=== PATIENT | female | born 1925 | race Caucasian/White ===

== ENCOUNTER 2017-01-26 13:52 | Inpatient (IN) | payer MEDICARE, OTHER ==
[~2017-01-26] VITALS: Ht 157.5 cm; Wt 140.0 kg
[~2017-01-26 13:52] MED LIST: ACET-2158 PO; ASPI-664 PO; ISOS60TA PO; LEVE750T70 PO; LEVO125T PO; METO-429 PO; NIT4 SL; PRAM0.5T PO; PRIM50TA38 PO; SERT25TA PO; SIMV40TA2 PO; SIN25100 PO
[2017-01-26] MEDS ORDERED: SOD CHLORIDE 0.9% 500 ML IV STA (14:36)
[2017-01-26] MEDS ORDERED: ATOR20TA38 PO (14:58)
[2017-01-26] MEDS ORDERED: BENA10TA48 PO (14:58)
[2017-01-26] MEDS ORDERED: LEVO750T8 PO (15:01)
[2017-01-26] MEDS ORDERED: IPRA3AMP INHALATION (15:01)
[2017-01-26] MEDS ORDERED: ALBU2.5V3 NEB (15:01)
[2017-01-26 15:27] LABS: ADD SCAN DIFF NO
[2017-01-26 15:39] LABS: INR 0.88; PROTIME 11.9 Sec (12.2-14.2); PT RATIO 0.9
[2017-01-26 15:41] LABS: CHLORIDE 104 mmol/L (97-110); POTASSIUM 4.5 mmol/L (3.5-5.1); SODIUM 143 mmol/L (135-144)
[2017-01-26 15:44] LABS: ANION GAP 15 (8-16); BLOOD UREA NITROGEN 13 mg/dl (7-20); CARBON DIOXIDE 29 mmol/L (21-31); CREATININE 0.72 mg/dl (0.44-1.00); GLUCOSE 91 mg/dl (70-220)
[2017-01-26 15:45] LABS: CALCIUM 8.7 mg/dl (8.4-10.2)
--- NOTE | 2017-01-26 15:51 | RADRPT ---
PROCEDURE: XR Chest. CLINICAL INDICATION: 89-year-old female with syncope. TECHNIQUE: Single frontal view of the chest was obtained COMPARISON: Chest x-ray 08/30/2016 02:17 p.m. FINDINGS: The soft tissues are normal. There are degenerative osteophytes in the thoracic spine. The the lef t ventricle is enlarged. The cardiomediastinal silhouette, pulmonary vasculature and hilar structur es are normal. There are vascular calcifications of the aortic arch. There is compressive atelectasi s in the bases of the lungs. The PICC line catheter previously identified on 08/30/2016 was removed over the interval. There is compressive atelectasis associated with a subpulmonic left pleural eff usion. IMPRESSION: 1. The left ventricular enlargement with atherosclerotic facet disease involving the aortic arch. 2. Suboptimal inspiratory effort with compressive atelectasis in the bases of the lungs have a smal l left pleural effusion. RPTAT:AAJJ Physician Sera Date Time Electronically viewed and signed by Celso Man Physician on 01/26/2017 15:51 RESHMA/
[2017-01-26 15:58] LABS: TROPONIN-I < 0.012 ng/ml (0.00-0.12)
[2017-01-26] MEDS ORDERED: LIDOCAINE 1% (MDV) 20 ML INJ SC ONE (16:00)
--- NOTE | 2017-01-26 16:47 | RADRPT ---
PROCEDURE: CT brain without contrast CLINICAL INDICATION: Syncope TECHNIQUE: CT of the brain without contrast performed on a multidetector CT scanner, with multiplan ar reformats. One or more of the following dose reduction techniques were used: Automated exposure control, adjustment in mA and / or kV according to patient size, use of iterative reconstructive yovany hnique. CTDIvol = 39/2 mGy; DLP = 555/5 mGy-cm. COMPARISON: None available FINDINGS: She there is a small to moderate chronic infarct in the right middle cerebral artery territory, invo lving the frontal and adjacent insular regions, and a smaller chronic infarct in the right posterior cerebral artery territory, involving the occipital lobe. There is ex vacuo dilation of the right a trium. There are also small chronic infarcts in the bilateral cerebellar hemispheres. No acute int racranial hemorrhage is identified. No extra-axial fluid collection is seen. There is no mass effect. No midline shift is identified. Ventricles and sulci are mild to moderately enlarged compatible with generalized volume loss. There are mild areas of hypodensity in the periventricular - deep white matter which are nonspecific but suggestive of chronic small vessel ischemic changes. Hsu-white differentiation is otherwise p reserved. Atherosclerotic calcifications of the proximal intracranial arteries are noted. Calvarium and skull base are unremarkable. There is partial left mastoid air cell opacification, se nely right sphenoid and posterior ethmoid sinus mucosal thickening, and mild right frontal sinus muc osal thickening. IMPRESSION: 1. No evidence of acute intracranial pathology. 2. 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 3. Mild to moderate volume loss, with mild chronic small vessel ischemic changes. RPTAT: VV .Ismael Briggs MD, MD Date Time Electronically viewed and signed by .Ismael Briggs MD, on 01/26/2017 16:46 .O/
[2017-01-26] MEDS ORDERED: SOD CHLORIDE 0.9% 1,000 ML IV SCH (19:05)
--- NOTE | 2017-01-26 19:10 | ERA ---
ER Documentation Chief Complaint Date/Time DATE: 01/26/17 TIME: 19:06 Chief Complaint BROUGHT IN VIA EMS FROM MD OFFICE DUE TO SYNCOPE HPI This 89-year-old female who was syncopal at her doctor's office today. The patient was just discharged from [facility] for a syncopal episode last week. She was in the hospital for 2 days no apparent findings. The patient was apparently sitting in her doctor's office prior to arrival became pale and was syncopal for about 60 seconds according to the son. The patient does recall this event and says there is no preceding symptoms. The patient woke up and was asymptomatic. She denies any dizziness. The patient however is a very poor historian. She denies any chest pain shortness of breath abdominal pain vomiting diarrhea denies any recent illness. ROS All systems reviewed and are negative except as per history of present illness. Medications Home Meds Active Scripts Levothyroxine Sodium* (Synthroid*) 125 Mcg Tablet, 125 MCG PO BEFORE BREAKFAST for 30 Days, TAB Prov:MYLES SCHAFFER MD 08/29/16 Reported Medications Levofloxacin* (Levofloxacin*) 750 Mg Tablet, 750 MG PO Q48H, TAB 01/26/17 Ipratropium-Albuterol (Ipratropium-Albuterol) 0.5-3 Mg/3 Ml Ampul.neb, 3 ML INHALATION Q6 Y for SHORTNESS OF BREATH, #30 VIAL 01/26/17 Benazepril Hcl* (Benazepril Hcl*) 10 Mg Tablet, 10 MG PO DAILY, #30 TAB 01/26/17 Atorvastatin Calcium* (Atorvastatin Calcium*) 20 Mg Tablet, 20 MG PO QHS, #30 TAB 01/26/17 Nitroglycerin* (Nitrostat*) 0.4 Mg Tab.subl, 0.4 MG SL Q5MIN Y for CHEST PAIN, BOTTLE 01/05/16 Levetiracetam* (Keppra*) 750 Mg Tablet, 750 MG PO BID, TAB 01/05/16 Carbidopa-Levodopa* (Sinemet*) 25-100 Mg Tab, 1 TAB PO TID, TAB 01/05/16 Acetaminophen (TYLENOL 325 MG TAB) 325 Mg Tab, 650 MG PO Q6 Y 08/09/13 Discontinued Reported Medications Albuterol Sulfate* (Albuterol Sulfate* Neb) 0.083%-3 Ml Neb, 2.5 MG NEB Q3H Y for WHEEZING AND SOB, #30 VIAL 01/26/17 Simvastatin* (Zocor*) 40 Mg Tablet, 40 MG PO QHS, #30 TAB 01/05/16 Primidone* (Mysoline*) 50 Mg Tablet, 50 MG PO HS, TAB 01/05/16 Pramipexole* (Pramipexole*) 0.5 Mg Tablet, 0.5 MG PO TID, TAB 01/05/16 Isosorbide Mononitrate* (Isosorbide Mononitrate*) 60 Mg Tab.er.24h, 60 MG PO DAILY, TAB 01/05/16 Aspirin (Low Dose Aspirin) 81 Mg Tablet.dr, 81 MG PO DAILY, #30 TAB 01/05/16 Metoprolol Tartrate (LOPRESSOR) 50 Mg Tab, 25 MG PO DAILY Hold for sbp less than 120 or HR less than 60. 08/09/13 Sertraline Hcl* (Zoloft*) 25 Mg Tablet, 25 MG PO HS 03/25/13 Allergies Allergies: Coded Allergies: No Known Allergies (Verified Allergy, Unknown, 01/26/17) PMhx/Soc Anesthesia Reaction: No Hx Neurological Disorder: No Hx Respiratory Disorders: No Hx Cardiac Disorders: Yes (htn and at times low blood pressure. ) Hx Psychiatric Problems: No Hx Miscellaneous Medical Probl: Yes (seizure disorder, hypothyroid. ) Hx Alcohol Use: No Hx Substance Use: No Hx Tobacco Use: No Smoking Status: Never smoker FmHx Family History: No coronary disease Physical Exam Vitals Vital Signs Date Time Temp Pulse Resp B/P Pulse Ox O2 Delivery O2 Flow Rate FiO2 01/26/17 13:56 98.0 54 16 103/46 98 Physical Exam Const: Well-developed, well-nourished Head: Atraumatic, normocephalic Eyes: Normal Conjunctiva, PERRLA, EOMI, normal sclera, no nystagmus ENT: Normal External Ears, Nose and Mouth, moist mucus membranes. Neck: Full range of motion. No meningismus, no lymphadenopathy. Resp: Clear to auscultation bilaterally, no wheezing, rhonchi, rales Cardio: Regular rate and rhythm, no murmurs, S1 S2 present Abd: Soft, non tender x 4, non distended. Normal bowel sounds, no guarding or rebound, no pulsitile abdominal masses or bruits Skin: No petechiae or rashes, no ecchymosis , no maculopapular rash Back: No midline or flank tenderness Ext: No cyanosis, or edema, FROM x 4, normal inspection, neurovascularly intact x 4 Neur: Awake and alert, STR 5/5 x 4, sensation intact x 4, no focal findings, cerebellum intact Psych: Normal Mood and Affect Result Diagram: 01/26/17 1515 Results 24 hrs Laboratory Tests Test 01/26/17 15:15 Activated Partial Thromboplast Time Pending Anion Gap 15 Blood Urea Nitrogen 13mg/dl Calcium Level 8.7mg/dl Carbon Dioxide Level 29mmol/L Chloride Level 104mmol/L Creatinine 0.72mg/dl Glucose Level 91mg/dl INR International Normalized Ratio 0.88 Potassium Level 4.5mmol/L Prothrombin Time 11.9Sec Prothrombin Time Ratio 0.9 Sodium Level 143mmol/L Troponin I < 0.012ng/ml Current Medications Medications (Trade) Dose Ordered Sig/Kristofer Route PRN Reason Start Time Stop Time Status Last Admin Dose Admin Sodium Chloride (NS) 500 ml @ 500 mls/hr Q1H STAT IV 01/26/17 14:36 01/26/17 15:35 DC Lidocaine (Xylocaine 1% (Mdv) 20 ml) 20 ml ONCE ONCE SC 01/26/17 16:00 01/26/17 16:01 DC Procedures/MDM PROCEDURE: CT brain without contrast CLINICAL INDICATION: Syncope TECHNIQUE: CT of the brain without contrast performed on a multidetector CT scanner, with multiplanar reformats. One or more of the following dose reduction techniques were used: Automated exposure control, adjustment in mA and / or kV according to patient size, use of iterative reconstructive technique. CTDIvol = 39/2 mGy; DLP = 555/5 mGy-cm. COMPARISON: None available FINDINGS: She there is a small to moderate chronic infarct in the right middle cerebral artery territory, involving the frontal and adjacent insular regions, and a smaller chronic infarct in the right posterior cerebral artery territory, involving the occipital lobe. There is ex vacuo dilation of the right atrium. There are also small chronic infarcts in the bilateral cerebellar hemispheres. No acute intracranial hemorrhage is identified. No extra-axial fluid collection is seen. There is no mass effect. No midline shift is identified. Ventricles and sulci are mild to moderately enlarged compatible with generalized volume loss. There are mild areas of hypodensity in the periventricular - deep white matter which are nonspecific but suggestive of chronic small vessel ischemic changes. Hsu-white differentiation is otherwise preserved. Atherosclerotic calcifications of the proximal intracranial arteries are noted. Calvarium and skull base are unremarkable. There is partial left mastoid air cell opacification, severe right sphenoid and posterior ethmoid sinus mucosal thickening, and mild right frontal sinus mucosal thickening. IMPRESSION: 1. No evidence of acute intracranial pathology. 2. 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 3. Mild to moderate volume loss, with mild chronic small vessel ischemic changes. RPTAT: VV .Ismael Briggs MD, Date Time Electronically viewed and signed by .Ismael Briggs MD, on 01/26/2017 16:46 .O/ CC: CHASIDY MARIA DO PROCEDURE: XR Chest. CLINICAL INDICATION: 89-year-old female with syncope. TECHNIQUE: Single frontal view of the chest was obtained COMPARISON: Chest x-ray 08/30/2016 02:17 p.m. FINDINGS: The soft tissues are normal. There are degenerative osteophytes in the thoracic spine. The the left ventricle is enlarged. The cardiomediastinal silhouette, pulmonary vasculature and hilar structures are normal. There are vascular calcifications of the aortic arch. There is compressive atelectasis in the bases of the lungs. The PICC line catheter previously identified on 2015 was removed over the interval. There is compressive atelectasis associated with a subpulmonic left pleural effusion. IMPRESSION: 1. The left ventricular enlargement with atherosclerotic facet disease involving the aortic arch. 2. Suboptimal inspiratory effort with compressive atelectasis in the bases of the lungs have a small left pleural effusion. RPTAT:AAJJ Celso Man Physician Date Time Electronically viewed and signed by Celso Man Physician on 01/26/2017 15:51 JM/ CC: CHASIDY MARIA DO ED monitor demonstrates normal sinus rhythm heart rate between 58 and 62 Patient's syncopal symptoms are unstable at this time and require inpatient workup. No evidence of PE or dissection at this time but occult ischemia or fatal dysrhythmia cannot be ruled out. Departure Diagnosis: Primary Impression: Syncope Qualified Code: R55 - Syncope, unspecified syncope type Condition: Stable CHASIDY MARIA DO Jan 26, 2017 19:10
[2017-01-26 19:22] VITALS: TEMP 98.3
[2017-01-26] MEDS ORDERED: ACETAMINOPHEN 325 MG TAB PO PRN ×3 (19:30→23:00)
[2017-01-26] MEDS ORDERED: ONDANSETRON 4 MG INJ IV PRN ×2 (19:30→23:00)
[2017-01-26 20:28] LABS: BASOPHIL # 0.1 10^3/ul (0.0-0.1); BASOPHILS % 0.7 % (0.0-2.0); EOSINOPHILS # 0.4 10^3/ul (0.0-0.5); EOSINOPHILS % 4.4 % (0.0-7.0); HEMATOCRIT 35.3 % (37.0-47.0); HEMOGLOBIN 11.3 g/dl (12.0-16.0); LYMPHOCYTES # 2.7 10^3/ul (0.8-2.9); MEAN CORPUSCULAR HEMOGLOBIN 30.5 pg (29.0-33.0); MEAN CORPUSCULAR VOLUME 95.1 fl (82.0-101.0); MEAN PLATELET VOLUME 9.9 fl (7.4-10.4); MONOCYTE # 0.7 10^3/ul (0.3-0.9); MONOCYTES % 8.1 % (0.0-11.0); NEUTROPHIL # 4.6 10^3/ul (1.6-7.5); NEUTROPHILS % 54.3 % (39.0-77.0); PLATELET COUNT 356 10^3/UL (140-415); RED BLOOD COUNT 3.71 10^6/ul (4.20-5.40); RED CELL DISTRIBUTION WIDTH 15.3 % (11.5-14.5); WHITE BLOOD COUNT 8.5 10^3/ul (4.8-10.8)
[2017-01-26 20:57] VITALS: PULSE 75
[2017-01-26 20:57] LABS: PARTIAL THROMBOPLASTIN TIME 25.5 Sec (25.0-35.0)
[2017-01-26 21:27] VITALS: Ht 157.5 cm; Wt 140.0 kg
[2017-01-26 21:34] VITALS: BP 118/90; PULSE 75; RESP 20
[2017-01-26] MEDS ORDERED: NITROGLYCERIN (SL) 0.4 MG TAB SL PRN (23:00)
[2017-01-26] MEDS ORDERED: ALBUTEROL/IPRATROPIUM (NEB) 3 ML AMP HHN PRN (23:00)
[2017-01-26] MEDS ORDERED: NACL 0.9% 3 ML SYG IV SCH (23:00)
[2017-01-26] MEDS ORDERED: DOCUSATE SODIUM 100 MG CAP PO PRN (23:00)
[2017-01-26] MEDS ORDERED: BISACODYL (EC) 5 MG TAB PO PRN (23:00)
[2017-01-26] MEDS ORDERED: MAGNESIUM HYDROXIDE 30ML CUP PO PRN (23:00)
[2017-01-26] MEDS ORDERED: ACETAMINOPHEN 650 MG SUPP PR PRN (23:00)
[2017-01-26] MEDS: SOD CHLORIDE 0.45% 1,000 ML IV SCH (23:02)
[2017-01-26] MEDS: LEVOFLOXACIN 750 MG TABLET PO SCH (23:02)
--- NOTE | 2017-01-26 23:26 | QN ---
Documentation Comment a/p syncope copd parkinson disease s/p uti plan per order MYLES SCHAFFER MD Jan 26, 2017 23:26
[2017-01-27] VITALS (14 sets, daily range): BP systolic 98–130; BP diastolic 49–67; PULSE 60–113; RESP 16–18
[2017-01-27] MEDS: PANTOPRAZOLE 40 MG INJ IV SCH (05:54)
[2017-01-27 06:40] LABS: ADD SCAN DIFF NO
[2017-01-27 06:47] LABS: BASOPHILS % 0.4 % (0.0-2.0); EOSINOPHILS # 0.4 10^3/ul (0.0-0.5); HEMATOCRIT 34.2 % (37.0-47.0); HEMOGLOBIN 10.6 g/dl (12.0-16.0); LYMPHOCYTES # 2.2 10^3/ul (0.8-2.9); LYMPHOCYTES % 31.9 % (15.0-51.0); MEAN CORPUSCULAR VOLUME 96.9 fl (82.0-101.0); MEAN PLATELET VOLUME 9.9 fl (7.4-10.4); MONOCYTE # 0.8 10^3/ul (0.3-0.9); MONOCYTES % 11.3 % (0.0-11.0); NEUTROPHIL # 3.5 10^3/ul (1.6-7.5); NEUTROPHILS % 50.1 % (39.0-77.0); PLATELET COUNT 302 10^3/UL (140-415); RED BLOOD COUNT 3.53 10^6/ul (4.20-5.40); RED CELL DISTRIBUTION WIDTH 15.4 % (11.5-14.5)
[2017-01-27] MEDS: LEVOTHYROXINE 125 MCG TAB PO SCH (07:05)
[2017-01-27 07:08] LABS: ALBUMIN 2.8 g/dl (3.3-4.9)
[2017-01-27 07:09] LABS: POTASSIUM 3.8 mmol/L (3.5-5.1)
[2017-01-27 07:11] LABS: ALBUMIN/GLOBULIN RATIO 0.9; CREATININE 0.67 mg/dl (0.44-1.00); TOTAL PROTEIN 5.9 g/dl (6.1-8.1)
[2017-01-27 07:12] LABS: CALCIUM 8.1 mg/dl (8.4-10.2)
[2017-01-27] MEDS: CARBIDOPA/LEVODOPA (25/100) TAB PO SCH ×3 (09:53→21:07)
[2017-01-27] MEDS: LEVETIRACETAM 750 MG TAB PO SCH ×2 (09:53→21:07)
[2017-01-27] MEDS: BENAZEPRIL 10 MG TAB PO SCH (09:53)
--- NOTE | 2017-01-27 16:22 | QN ---
Documentation Comment [id number] MYLES SCHAFFER MD Jan 27, 2017 16:22
--- NOTE | 2017-01-27 16:25 | PN ---
Date/Time of Note Date/Time of Note DATE: 01/27/17 TIME: 16:23 Assessment/Plan VTE Prophylaxis VTE Prophylaxis Intervention: other Lines/Catheters IV [facility] Peripheral IV Urinary Cath still in place: No Assessment/Plan Chief Complaint/Hosp Course a/p syncope uti hx cad parkinson diseease plan per neurology Problems: Subjective 24 Hr Interval Summary Cardiovascular: no complaints Gastrointestinal: no complaints Genitourinary: no complaints Exam/Review of Systems Vital Signs Vitals Vital Signs Date Time Temp Pulse Resp B/P Pulse Ox O2 Delivery O2 Flow Rate FiO2 01/27/17 16:03 98.7 60 18 100/65 92 01/26/17 21:34 Room Air Intake and Output 01/26/17 01/26/17 01/27/17 15:00 23:00 07:00 Intake Total 510 ml Balance 510 ml Exam Respiratory: diminished breath sounds Cardiovascular: regular rate and rhythm Gastrointestinal: nl liver, spleen, soft Musculoskeletal: nl extremities to inspection Extremities: normal pulses Results Result Diagram: 01/27/1715 01/27/17 0615 Results 24 hrs Laboratory Tests Test 01/26/17 20:18 01/27/17 06:15 Activated Partial Thromboplast Time 25.5 Basophils # 0.1 0.0 Basophils % 0.7 0.4 Eosinophils # 0.4 0.4 Eosinophils % 4.4 5.0 Hematocrit 35.3 #L 34.2 L Hemoglobin 11.3 #L 10.6 L INR International Normalized Ratio 0.88 Lymphocytes # 2.7 2.2 Lymphocytes % 31.0 31.9 Mean Corpuscular Hemoglobin 30.5 30.0 Mean Corpuscular Hemoglobin Concent 32.0 31.0 L Mean Corpuscular Volume 95.1 96.9 Mean Platelet Volume 9.9 9.9 Monocytes # 0.7 0.8 Monocytes % 8.1 11.3 H Neutrophils # 4.6 3.5 Neutrophils % 54.3 50.1 Nucleated Red Blood Cells # 0.0 0.0 Nucleated Red Blood Cells % 0.0 0.0 Platelet Count 356 302 Prothrombin Time 11.9 L Prothrombin Time Ratio 0.9 Red Blood Count 3.71 #L 3.53 L Red Cell Distribution Width 15.3 H 15.4 H White Blood Count 8.5 # 7.0 Alanine Aminotransferase (ALT/SGPT) 23 Albumin 2.8 L Albumin/Globulin Ratio 0.90 Alkaline Phosphatase 104 Anion Gap 13 Aspartate Amino Transf (AST/SGOT) 11 L Blood Urea Nitrogen 11 Calcium Level 8.1 L Carbon Dioxide Level 25 Chloride Level 104 Creatinine 0.67 Direct Bilirubin 0.00 Globulin 3.10 Glucose Level 78 Indirect Bilirubin 0.0 Potassium Level 3.8 Sodium Level 138 Total Bilirubin 0.0 L Total Protein 5.9 L Medications Medications Current Medications Atorvastatin Calcium (Lipitor) 20 mg QHS PO ; Start 01/27/17 at 21:00 Benazepril HCl (Lotensin) 10 mg DAILY PO Last administered on 01/27/17 09:53; Admin Dose 10 MG; Start 01/27/17 at 09:00 Carbidopa/Levodopa (Sinemet (/ )) 1 tab TID PO Last administered on 13:42; Admin Dose 1 TAB; Start 01/27/17 at 09:00 Levetiracetam (Keppra) 750 mg BID PO Last administered on 01/27/17 09:53; Admin Dose 750 MG; Start 01/27/17 at 09:00 Levofloxacin (Levaquin) 750 mg Q48H PO Last administered on 01/26/17 23:02; Admin Dose 750 MG; Start 01/26/17 at 23:00 Nitroglycerin 0.4 tab 0.4 tab [id number] PRN SL CHEST PAIN; Start 01/26/17 at 23: 00 Sodium Chloride (1/2 NS) 1,000 ml @ 40 mls/hr Q24H IV Last administered on 01/26 23:02; Admin Dose 40 MLS/HR; Start 01/26/17 at 22:32 Ondansetron HCl (Zofran Inj) 4 mg Q6H PRN IV NAUSEA AND/OR VOMITING; Start 01/26 at 23:00 Acetaminophen (Tylenol Tab) 650 mg Q6H PRN PO PAIN LEVEL 1-3 OR FEVER; Start at 23:00 Acetaminophen (Tylenol Supp) 650 mg Q6H PRN MI PAIN LEVEL 1-3 OR FEVER; Start 01/26/17 at 23:00 Docusate Sodium (Colace) 100 mg Q12H PRN PO CONSTIPATION; Start 01/26/17 at 23: 00 Magnesium Hydroxide (Milk Of Mag) 30 ml DAILY PRN PO CONSTIPATION; Start at 23:00 Bisacodyl (Dulcolax) 5 mg DAILY PRN PO CONSTIPATION; Start 01/26/17 at 23:00 Pantoprazole (Protonix Iv) 40 mg DAILY@06 IV Last administered on 01/27/17t 05: 54; Admin Dose 40 MG; Start 01/27/17 at 06:00 MYLES SCHAFFER MD Jan 27, 2017 16:25
--- NOTE | 2017-01-27 16:51 | HP ---
DATE OF ADMISSION: 01/26/2017 HISTORY OF PRESENT ILLNESS: The patient is an 89-year-old female with history of CAD, COPD, Parkinson's disease, recently discharged from [facility] with diagnosis of UTI. The patient was in my office, . When I saw her, the patient had dizziness and trying to pass out, but she never passed out. 911 was called and they brought her to this hospital where blood pressure was 106/ 51. She was afebrile. The patient had laboratory data done shows hematocrit 34.2, sodium 130, potassium 3.8. The patient is being admitted for further management. PAST MEDICAL HISTORY: Positive for seizures, UTI, hypothyroidism. The patient has arthritis, DJD, history of respiratory failure, history of COPD, history of multiple falls in the past. ALLERGY HISTORY: NEGATIVE. FAMILY HISTORY: Noncontributory. SOCIAL HISTORY: Negative. MEDICATIONS: At home, the patient is on: 1. Tylenol. 2. Atrovent. 3. Lipitor. 4. Benazepril. 5. Carbidopa/levodopa. 6. Keppra. 7. Levofloxacin. . REVIEW OF SYSTEMS HEENT: Unremarkable for headache, diplopia, blurred vision, but earlier patient did. RESPIRATORY: Unremarkable. CARDIOVASCULAR: No chest pain or palpitation. ABDOMEN: Unremarkable. EXTREMITIES: No swelling. PHYSICAL EXAMINATION: VITAL SIGNS: Pulse 61, blood pressure 90/67. HEAD: Atraumatic, normocephalic. Pupils equal and reactive to light. NECK: Supple. No JVD. LUNGS: Clear. CARDIOVASCULAR: S1, S2 normal. ABDOMEN: Soft, nontender. Bowel sounds present. No palpable mass. EXTREMITIES: No cyanosis, clubbing, or edema. CENTRAL NERVOUS SYSTEM: The patient is awake, alert, and no focal deficit. LABORATORY DATA: As mentioned above. IMPRESSION: 1. Syncopal episode. 2. Status post urinary tract infection. 3. Hypertension. 4. Hypothyroidism. 5. Dyslipidemia. 6. Electrolyte imbalance. PLAN: To obtain cardiology and neurology consultations. Continue home medications. The patient is going to be monitored very closely. Orders were done. Dictated By: MYLES SCHAFFER MD BS/NTS Conf#: [id number] DID#: [id number] [facility]
[2017-01-27] MEDS: ATORVASTATIN 20 MG TAB PO SCH (21:07)
--- NOTE | 2017-01-27 21:17 | SP ---
DATE OF PROCEDURE: REFERRING PHYSICIAN: Boni Schaffer MD Thank you for asking me to see the patient with you. HISTORY OF PRESENT ILLNESS: The patient is an 89-year-old lady, admitted to [facility] with syncopal attacks, for which I got a call about her for more evaluation and treatment. Th e patient is known to my clinic for a history of seizure disorder, as well as parkinsonism. The pat ient is accompanied by her son in the room tonight. CURRENT MEDICATIONS Include: 1. Keppra. 2. Sinemet. 3. Lipitor. The rest as the reconciliation sheet. PAST MEDICAL HISTORY: As above, which includes dyslipidemia, parkinsonism, seizure disorder. PHYSICAL EXAMINATION GENERAL: On exam today, the patient is alert, awake, oriented, following simple commands. accompan ied by her son in the room. HEART: Regular rate and rhythm. LUNGS: Equal breath sounds. ABDOMEN: Soft, relaxed, nondistended. No tenderness. NEUROLOGIC EXAMINATION CRANIAL NERVES: Cranial nerve II: Pupils equal on both sides, reactive to light. Cranial nerves III, IV, and : Extraocular muscles intact. Cranial nerve V: Equal sensation to face. Cranial nerve VII: Symmetrical face. Cranial nerve VIII: Decreased hearing bilaterally. Cranial nerves IX, X: Elevates palate. Cranial nerve XI: Elevates shoulder 5/5. Cranial nerve XII: With straight tongue. MOTOR: Decreased right hand felt hanger, 4+/5. SENSATION: Decreased for glove and sock area for light touch and temperature. COORDINATION: [id number] test intact, with some tremor. ASSESSMENT AND PLAN The patient is an 89-year-old lady with a past medical history of seizure disorder, with ____ under lying seizure activity. Follow up the patient with electroencephalogram. Continue the patient on K eppra 500 mg twice a day and follow up the patient with seizure precaution and aspiration precaution . 2. History of parkinsonism. Keep the patient on Sinemet 100 mg/25 mg 3 times a day. We will follo w up the patient in the clinic for more evaluation and treatment. 4. History of dyslipidemia. Keep the patient on Lipitor 20 mg once a day. 5. History of insomnia. Keep the patient on Ambien 5 mg once at night as needed. 6. History of hypertension. Keep the patient on metoprolol 25 mg once a day. 7. The patient with memory disorder in which the patient was on donepezil 10 mg once a day. 8. History of essential tremor. Give the patient Primidone 50 mg once at night. Again, thank you for asking me to see the patient with you. Dictated By: FEDERICO HASSAN MD NA/NTS Conf#: [id number] DID#: [id number] CC: BONI SCHAFFER MD;*End*
[2017-01-27] MEDS: SOD CHLORIDE 0.45% 1,000 ML IV SCH (22:32)
--- NOTE | 2017-01-27 23:17 | CONS ---
DATE OF ADMISSION: 01/26/2017 DATE OF CONSULTATION: 01/27/2017 TYPE OF CONSULTATION: Cardiology. REASON FOR CONSULTATION: Syncope, presyncope, assess for cardiac etiology, rule out cardiac arrhyth gabino. REQUESTING PHYSICIAN: Dr. Boni Schaffer HISTORY OF PRESENT ILLNESS: Ms. Heredia is a very pleasant 89-year-old female with history of preston ry artery disease, chronic obstructive pulmonary disease, Parkinson disease who had a recent admit [facility] with a diagnosis of UTI. The patient was discharged to outpatient followup and sh owed up at her primary care physician's office with complaints of dizziness and episodes of presynco pe. The physician had 911 called. The patient was brought here to emergency department at [facility]. Upon arrival in the emergency department, temperature 98, blood pressure 103/ 46, pulse 54, respiratory rate 16, saturating 98%. The patient's labs revealed a white cell count o f 8.5, hemoglobin 11.3, platelet count 356. Sodium 143, potassium 4.5, creatinine 0.7, BUN 13. Tro ponin negative. INR 0.88. White blood cell count 8.5, hemoglobin 11.3, platelet count of 356. The patient underwent a chest x-ray revealing left ventricular enlargement, atherosclerotic vascular di sease involving ____, suboptimally inspiratory effort with compressive atelectasis at base of the darren ngs and small left pleural effusion. 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 The patient's electrocardiogram revealed n ormal sinus rhythm at a rate of 61, normal axis, borderline anterior R-wave progression with diffuse nonspecific ST and T-wave abnormalities. The patient has subsequently been admitted to the floor a nd since admit to floor has been monitored on telemetry, revealing sinus rhythm, no significant arrh ythmias or pauses at this time. The patient denies chest pain, shortness of breath, dizziness. PAST MEDICAL HISTORY: As above in HPI. MEDICATIONS CURRENTLY IN HOSPITAL: 1. Lipitor 20 mg at bedtime. 2. Benazepril 10 mg daily. 3. Sinemet p.o. t.i.d. 4. Keppra 750 mg b.i.d. 5. Synthroid 125 mg daily. 6. Protonix 40 mg IV daily. 7. DuoNeb. 8. ____. 9. Sublingual nitroglycerin p.r.n. 10. Zofran p.r.n. 11. Tylenol p.r.n. 12. Colace p.r.n. 13. Milk of magnesia p.r.n. 14. IV fluid hydration 40 mL an hour. ALLERGIES: NO KNOWN DRUG ALLERGIES. SOCIAL HISTORY: No tobacco, ETOH, illicit drug use. FAMILY HISTORY: No history of sudden cardiac or early CAD. REVIEW OF SYSTEMS: As above in HPI. CONSTITUTIONAL: No fevers, chills. PULMONARY: No current shortness of breath. CARDIOVASCULAR: Syncope, presyncope. No chest pain. GASTROINTESTINAL: No vomiting. GENITOURINARY: No hematuria. MUSCULOSKELETAL: Degenerative joint disease. PSYCHIATRIC: No documented history of depression. NEUROLOGIC: Parkinson's and possible seizure disorder by medications. PHYSICAL EXAMINATION: VITAL SIGNS: Temperature of 98.7, blood pressure low at 165, pulse 60, respiratory rate 18, saturat ing 92%. GENERAL: The patient is alert, awake. No acute distress. NECK: JVP approximately 8 to 9 cm water. CHEST: Fair air movement throughout. HEART: Regular rate and rhythm. Normal S1, S2. I/ systolic murmur. Nondisplaced PMI. ABDOMEN: Positive bowel sounds, soft. NEUROLOGICAL: No edema. Pulses 1+ bilaterally at posterior tibial. LABORATORY DATA: As above in HPI with most recent from today: White cell count of 7.0, hemoglobin 10.6, platelet count 302. Sodium 138, potassium 3.8, creatinine 0.67, BUN 11. INR 0.88. IMAGING STUDIES: As above in HPI. No further imaging studies for my review at this time. ELECTROCARDIOGRAM: As above in HPI. No further electrocardiograms for my review at this time. IMPRESSION: 1. Syncope, presyncope, rule out cardiac etiology. 2. Abnormal electrocardiogram, assess for acute coronary syndrome. 3. History of congestive heart failure. 4. Dizziness. 5. Hypertension, borderline with episodes of low blood pressure and hypotension. 6. Hypothyroidism. 7. Parkinson's. 8. Dyslipidemia. 9. Possible seizure disorder by medications. 10. Anemia. RECOMMENDATIONS: 1. At this time would maintain the patient on telemetry monitoring to follow rhythm and rate closel y and rule out any possible rhythm causes to the patient's syncopal episode. 2. Would check a 2D echocardiogram to further assess this patient's ejection fraction, wall motion, rule out any major valve abnormalities that may have been associated with presyncopal episode. 3. Complete a rule-out for myocardial infarction, ensure the patient's EKG abnormalities are chroni c in nature and not due to any recent acute coronary syndromes and not associated with any possible syncopal episodes. 3. Would hold the patient's benazepril at this time and follow some marginal blood pressures. 4. Check orthostatics to be sure that orthostasis did not contribute to the patient's presyncopal o r syncopal episode. Continue the statin and adjust it according to a fasting lipid panel to be chec ked. 5. Continue the patient's current Sinemet and patient's Keppra and watch for any seizure activity w ith a neuro consultation ongoing. Thank you for allowing me to take part in the care of this patient. I will continue to follow very closely with you with further recommendations to be made as the patient progresses through her [facility] course. Dictated By: KELLY MTZ/GABRIELLA Conf#: [id number] DID#: [id number] CC: BONI SCHAFFER MD;*EndCC*
[2017-01-28] VITALS (11 sets, daily range): BP systolic 94–134; BP diastolic 51–58; PULSE 71–80; RESP 17–19
[2017-01-28 01:55] LABS: CK-MB 0.36 ng/ml (0.0-2.4)
[2017-01-28 01:58] LABS: TROPONIN-I 0.013 ng/ml (0.00-0.12)
[2017-01-28] MEDS: PANTOPRAZOLE 40 MG INJ IV SCH (06:04)
[2017-01-28] MEDS: LEVOTHYROXINE 125 MCG TAB PO SCH (06:04)
[2017-01-28 07:52] LABS: CHOL/HDL RATIO 2.6 RATIO
[2017-01-28 08:10] LABS: CK-MB 0.37 ng/ml (0.0-2.4)
[2017-01-28 08:11] LABS: CREATINE KINASE < 20 IU/L (23-200)
[2017-01-28 08:14] LABS: TROPONIN-I 0.025 ng/ml (0.00-0.12)
[2017-01-28] MEDS: BENAZEPRIL 10 MG TAB PO SCH (09:00)
[2017-01-28] MEDS: LEVETIRACETAM 750 MG TAB PO SCH ×2 (09:40→21:36)
[2017-01-28] MEDS: CARBIDOPA/LEVODOPA (25/100) TAB PO SCH ×3 (09:40→21:36)
--- NOTE | 2017-01-28 12:14 | RADRPT ---
Echocardiogram Report Patient Name: DAVID BLACK Gender: Female Date: 1925 Study Date: 28-Jan-2017 Client Manager Large Law: Kilo Gross [facility] Location: 1865 Ref. Physician: KELLY MCCABE Quality: Adequate Procedures: Transthoracic echocardiogram with complete 2D, M-Mode, and doppler examination. Indications: Syncope. 2D/M Mode Doppler Measurement Value Normal Ranges Measurement Value Normal Ranges LVIDd 2D 5.3 3.5 - 5.6 cm AV Peak Froilan 1.4 m/sec LVIDs 2D 1.9 2.1 - 4.1 cm AV Peak PG 8.0 mmHg FS 2D 64.2 % LVOT Peak Froilan 1.0 m/sec LVPWd 2D 1.2 0.6 - 1.1 cm LVOT Peak PG 4.0 mmHg IVSd 2D 1.1 0.6 - 1.1 cm MV E Peak Froilan 0.8 m/sec IVS/LVPW 2D 0.9 MV A Peak Froilan 1.3 m/sec AoR Diam 2D 2.6 2.0 - 3.7 cm MV E/A 0.6 LA/Ao 2D 1 0 - 1 MV Decel Time 215 msec EDV 2D 147.0 cm3 MV E/A 0.6 ESV 2D 6.8 cm3 TR Peak Froilan 2.9 m/sec LA Dimen 2D 3.4 2.3 - 4.0 cm TR Peak PG 33.0 mmHg RVSP 48.0 mmHg Findings Left Ventricle: Normal left ventricular systolic function. Normal left ventricular cavity size. Mild concentric left ventricular hypertrophy. Ejection fraction is visually estimated at 55 %. Tissue Doppler/Mitral Doppler indices are consistent with impaired relaxation (Stage I diastolic dysfunction). Right Ventricle: Normal right ventricular size. Normal right ventricular systolic function. Left Atrium: The left atrium is normal in size. Right Atrium: The right atrium is normal in size. Mitral Valve: Moderate mitral leaflet calcification. Mild mitral annular calcification. Mild mitral valve regurgitation. Aortic Valve: No hemodynamically significant aortic stenosis by doppler. Aortic cusps appear mildly calcified. Trace to mild aortic valve regurgitation. Tricuspid Valve: Normal appearance of the tricuspid valve. Estimated peak PA systolic pressure 48 mmHg. There is mild tricuspid regurgitation. Pulmonic Valve: Pulmonic valve not well visualized. Pericardium: Normal pericardium with no significant pericardial effusion. Aorta: Normal aortic root. IVC: Dilated IVC without respiratory collapse consistent with elevated right atrial pressure. Conclusions 1.Normal left ventricular systolic function. Normal left ventricular cavity size. Mild concentric left ventricular hypertrophy. Ejection fraction is visually estimated at 55 %. Tissue Doppler/Mitral Doppler indices are consistent with impaired relaxation (Stage I diastolic dysfunction). 2.Moderate mitral leaflet calcification. Mild mitral annular calcification. Mild mitral valve regurgitation. 3.No hemodynamically significant aortic stenosis by doppler. Aortic cusps appear mildly calcified. Trace to mild aortic valve regurgitation. 4.Normal appearance of the tricuspid valve. Estimated peak PA systolic pressure 48 mmHg. There is mild tricuspid regurgitation. Electronically Signed By: Kelly Mccabe 28-Jan-2017 12:14:25 -0800 Patient Name: DAVID BLACK Study Date: 28-Jan-2017 [id number]
[2017-01-28 13:23] LABS: CREATINE KINASE < 20 IU/L (23-200)
[2017-01-28 13:29] LABS: CK-MB 0.32 ng/ml (0.0-2.4)
[2017-01-28 13:36] LABS: TROPONIN-I < 0.012 ng/ml (0.00-0.12)
--- NOTE | 2017-01-28 13:44 | RADRPT ---
Vent Rate: 67 bpm RR Interval: 0 msec DC Interval: 140 msec QRS Duration: 78 msec QT Interval: 398 msec QTC Interval: 420 msec P-R-T [place]: 61 - 8 - 70 degrees Normal sinus rhythm Normal ECG Electronically Signed By: Alan Perdomo [id number]
--- NOTE | 2017-01-28 14:05 | CONS ---
Date/Time of Note Date/Time of Note DATE: 01/28/17 TIME: 14:00 Assessment/Plan Assessment/Plan Chief Complaint/Hosp Course IMPRESSION: 1. Syncope, presyncope, rule out cardiac etiology.-negstive troponin x 3/Echo EF 55/DD/MR/TR 2. Abnormal electrocardiogram, assess for acute coronary syndrome. 3. History of congestive heart failure. 4. Dizziness. 5. Hypertension, borderline with episodes of low blood pressure and hypotension. 6. Hypothyroidism. 7. Parkinson's. 8. Dyslipidemia. 9. Possible seizure disorder by medications. 10. Anemia. Recc: -Tele -serial ecg -? orthostatics not done -If does not receive benezapril will d/c given marginal BP -Contineu sinemet and follow volume status closely Problems: Consultation Date/Type/Reason Admit Date/Time Jan 26, 2017 at 19:05 Initial Consult Date 01/27/17 Type of Consultation: Cardiology Reason for Consultation syncope Referring Provider: MYLES SCHAFFER Exam/Review of Systems Vital Signs Vitals Vital Signs Date Time Temp Pulse Resp B/P Pulse Ox O2 Delivery O2 Flow Rate FiO2 01/28/17 12:37 80 01/28/17 11:35 97.5 17 119/51 92 01/26/17 21:34 Room Air Intake and Output 01/27/17 01/27/17 01/28/17 15:00 23:00 07:00 Intake Total 870 ml 280 ml Balance 870 ml 280 ml Exam Review of Systems: CONSTITUTIONAL: No fevers, chills. PULMONARY: No sob CARDIOVASCULAR: No chest pain/palpitations GASTROINTESTINAL: No nausea/vomiting. GENITOURINARY: No hematuria/dysuria. MUSCULOSKELETAL: No myagias/arthalgias. PSYCHIATRIC: The patient denies depression. NEUROLOGIC: lethargic Constitutional: alert, oriented Psych: no complaints Head: normocephalic ENMT: mucosa pink and moist Neck: jvd, supple Respiratory: diminished breath sounds Cardiovascular: regular rate and rhythm Gastrointestinal: non-tender, soft Musculoskeletal: muscle tone Extremities: normal pulses Neurological: other (No focal deficits) Results Result Diagram: 01/27/17 0615 01/27/17 0615 Results 24 hrs Laboratory Tests Test 01/28/17 00:48 01/28/17 07:00 01/28/17 07:05 01/28/17 12:30 Creatine Kinase 20 L < 20 L < 20 L Creatine Kinase Index 1.8 Creatinine Kinase MB (Mass) 0.36 0.37 0.32 Troponin I 0.013 0.025 < 0.012 Cholesterol Level 86 L Cholesterol/HDL Ratio 2.6 HDL Cholesterol 33 LDL Cholesterol, Calculated 30 Triglycerides Level 116 Medications Medications Current Medications Atorvastatin Calcium (Lipitor) 20 mg QHS PO Last administered on 01/27/17 21:07 ; Admin Dose 20 MG; Start 01/27/17 at 21:00 Benazepril HCl (Lotensin) 10 mg DAILY PO Last administered on 01/27/17 09:53; Admin Dose 10 MG; Start 01/27/17 at 09:00 Carbidopa/Levodopa (Sinemet (/ )) 1 tab TID PO Last administered on 12:48; Admin Dose 1 TAB; Start 01/27/17 at 09:00 Levetiracetam (Keppra) 750 mg BID PO Last administered on 01/28/17 09:40; Admin Dose 750 MG; Start 01/27/17 at 09:00 Levofloxacin (Levaquin) 750 mg Q48H PO Last administered on 01/26/17 23:02; Admin Dose 750 MG; Start 01/26/17 at 23:00 Nitroglycerin 0.4 tab 0.4 tab [id number] PRN SL CHEST PAIN; Start 01/26/17 at 23: 00 Sodium Chloride (1/2 NS) 1,000 ml @ 40 mls/hr Q24H IV Last administered on 01/27 22:32; Admin Dose 40 MLS/HR; Start 01/26/17 at 22:32 Ondansetron HCl (Zofran Inj) 4 mg Q6H PRN IV NAUSEA AND/OR VOMITING; Start 01/26 at 23:00 Acetaminophen (Tylenol Tab) 650 mg Q6H PRN [place] PAIN LEVEL 1-3 OR FEVER; Start at 23:00 Acetaminophen (Tylenol Supp) 650 mg Q6H PRN [place] PAIN LEVEL 1-3 OR FEVER; Start 01/26/17 at 23:00 Docusate Sodium (Colace) 100 mg Q12H PRN PO CONSTIPATION; Start 01/26/17 at 23: 00 Magnesium Hydroxide (Milk Of Mag) 30 ml DAILY PRN PO CONSTIPATION; Start at 23:00 Bisacodyl (Dulcolax) 5 mg DAILY PRN PO CONSTIPATION; Start 01/26/17 at 23:00 Pantoprazole (Protonix Iv) 40 mg DAILY@06 IV Last administered on 01/28/17t 06: 04; Admin Dose 40 MG; Start 01/27/17 at 06:00 KELLY DOSS Jan 28, 2017 14:05
--- NOTE | 2017-01-28 17:45 | PN ---
Date/Time of Note Date/Time of Note DATE: 01/28/17 TIME: 17:43 Assessment/Plan VTE Prophylaxis VTE Prophylaxis Intervention: other Lines/Catheters IV [facility]ter Type (from [facility]): Peripheral IV Urinary Cath still in place: No Assessment/Plan Chief Complaint/Hosp Course IMPRESSION: 1. Syncopal episode. 2. Status post urinary tract infection. 3. Hypertension. 4. Hypothyroidism. 5. Dyslipidemia. 6. Electrolyte imbalance. PLAN PER NEURO AND CARDIO Problems: Subjective 24 Hr Interval Summary Respiratory: no complaints Cardiovascular: no complaints Gastrointestinal: no complaints Exam/Review of Systems Vital Signs Vitals Vital Signs Date Time Temp Pulse Resp B/P Pulse Ox O2 Delivery O2 Flow Rate FiO2 01/28/17 16:15 80 01/28/17 16:07 97.5 17 103/53 93 01/26/17 21:34 Room Air Intake and Output 01/27/17 01/27/17 01/28/17 15:00 23:00 07:00 Intake Total 870 ml 280 ml Balance 870 ml 280 ml Exam Respiratory: clear to auscultation Cardiovascular: regular rate and rhythm Gastrointestinal: soft Musculoskeletal: nl extremities to inspection Results Result Diagram: 01/27/17 0615 01/27/17 0615 Results 24 hrs Laboratory Tests Test 01/28/17 00:48 01/28/17 07:00 01/28/17 07:05 01/28/17 12:30 Creatine Kinase 20 L < 20 L < 20 L Creatine Kinase Index 1.8 Creatinine Kinase MB (Mass) 0.36 0.37 0.32 Troponin I 0.013 0.025 < 0.012 Cholesterol Level 86 L Cholesterol/HDL Ratio 2.6 HDL Cholesterol 33 LDL Cholesterol, Calculated 30 Triglycerides Level 116 Medications Medications Current Medications Atorvastatin Calcium (Lipitor) 20 mg QHS PO Last administered on 01/27/17 21:07 ; Admin Dose 20 MG; Start 01/27/17 at 21:00 Benazepril HCl (Lotensin) 10 mg DAILY PO Last administered on 01/27/17 09:53; Admin Dose 10 MG; Start 01/27/17 at 09:00 Carbidopa/Levodopa (Sinemet (25/ 100)) 1 tab TID PO Last administered on 12:48; Admin Dose 1 TAB; Start 01/27/17 at 09:00 Levetiracetam (Keppra) 750 mg BID PO Last administered on 01/28/17 09:40; Admin Dose 750 MG; Start 01/27/17 at 09:00 Levofloxacin (Levaquin) 750 mg Q48H PO Last administered on 01/26/17 23:02; Admin Dose 750 MG; Start 01/26/17 at 23:00 Nitroglycerin 0.4 tab 0.4 tab [id number] PRN SL CHEST PAIN; Start 01/26/17 at 23: 00 Sodium Chloride (1/2 NS) 1,000 ml @ 40 mls/hr Q24H IV Last administered on 01/27 22:32; Admin Dose 40 MLS/HR; Start 01/26/17 at 22:32 Ondansetron HCl (Zofran Inj) 4 mg Q6H PRN IV NAUSEA AND/OR VOMITING; Start 01/26 at 23:00 Acetaminophen (Tylenol Tab) 650 mg Q6H PRN [place] PAIN LEVEL 1-3 OR FEVER; Start at 23:00 Acetaminophen (Tylenol Supp) 650 mg Q6H PRN [place] PAIN LEVEL 1-3 OR FEVER; Start 01/26/17 at 23:00 Docusate Sodium (Colace) 100 mg Q12H PRN PO CONSTIPATION; Start 01/26/17 at 23: 00 Magnesium Hydroxide (Milk Of Mag) 30 ml DAILY PRN PO CONSTIPATION; Start at 23:00 Bisacodyl (Dulcolax) 5 mg DAILY PRN PO CONSTIPATION; Start 01/26/17 at 23:00 Pantoprazole (Protonix Iv) 40 mg DAILY@06 IV Last administered on 01/28/17 06: 04; Admin Dose 40 MG; Start 01/27/17 at 06:00 MYLES SCHAFFER MD Jan 28, 2017 17:45
[2017-01-28] MEDS: ATORVASTATIN 20 MG TAB PO SCH (21:36)
[2017-01-28] MEDS: SOD CHLORIDE 0.45% 1,000 ML IV SCH (22:52)
[2017-01-28] MEDS: LEVOFLOXACIN 750 MG TABLET PO SCH (23:28)
[2017-01-29] VITALS (11 sets, daily range): BP systolic 105–114; BP diastolic 55–65; PULSE 67–118; RESP 16–20
[2017-01-29] MEDS: PANTOPRAZOLE 40 MG INJ IV SCH (06:08)
--- NOTE | 2017-01-29 07:42 | SP ---
DATE OF PROCEDURE: REFERRING PHYSICIAN: Dr. Schaffer. HISTORY OF PRESENT ILLNESS: The patient is 89 years old lady admitted to [facility] with syncopal attack in which the patient was admitted to telemetry for more evaluation and treat ment. The patient has a past medical history of seizure disorder as well as parkinsonism, in which the patient was evaluated yesterday and we will follow up. The patient had medications which include: 1. Keppra 500 mg twice a day. 2. Sinemet 100/25 mg 3 times a day. 3. Lipitor 20 mg once a day. The rest of the medications on the reconciled sheet. On exam today, the patient is alert, awake, oriented, following simple commands; however, difficult following second or third-step commands. CRANIAL NERVES: Pupils equal on both sides, reactive to light. Cranial nerves III, IV and : Ext raocular muscles intact. and V: Equal sensation to face. Cranial nerve VII: Symmetrical face. Cranial nerve VIII: Decreased hearing bilaterally and X: Elevates palate. XI: Elevates shoulder 5/5. Cranial nerve XII: With straight tongue. 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 HEART: Regular rate and rhythm. LUNGS: Equal breath sounds. ABDOMEN: Soft, relaxed, nondistended, no tenderness. Sensation decreased for glove and sock area f or light touch and temperature. COORDINATION: [id number] test intact. HEART: Regular rate and rhythm. ASSESSMENT AND PLAN 1. The patient is 89 years old with a history of seizure disorder. Continue the patient on Keppra 500 mg twice a day, awaiting for electroencephalogram for more evaluation and treatment. 2. History of parkinsonism: Continue the patient's Sinemet 100/25 mg 3 times a day as needed. 3. History of insomnia: Keep the patient on Ambien 5 mg once a day. 4. History of hypertension: Patient with 25 mg once a day. 5. History of memory disorder: We will follow up the patient with Aricept 10 mg once a day. 6. History of tremor with the possibility of underlying extension tremor besides the Parkinsonism. Continue the patient on Primidone 50 mg once a day. 7. I counseled her son about her status. Again, thank you for asking me to see the patient with you. Dictated By: FEDERICO BEACH/GABRIELLA Conf#: [id number] DID#: [id number] CC: FEDERICO HASSAN MD; MYLES SCHAFFER MD;*EndCC*
[2017-01-29] MEDS: LEVOTHYROXINE 125 MCG TAB PO SCH (07:56)
[2017-01-29] MEDS: BENAZEPRIL 10 MG TAB PO SCH (08:33)
[2017-01-29] MEDS: LEVETIRACETAM 750 MG TAB PO SCH ×2 (08:33→22:04)
[2017-01-29] MEDS: CARBIDOPA/LEVODOPA (25/100) TAB PO SCH ×3 (08:34→22:04)
--- NOTE | 2017-01-29 14:29 | CONS ---
Date/Time of Note Date/Time of Note DATE: 01/29/17 TIME: 14:25 Assessment/Plan Assessment/Plan Additional Assessment/Plan 1. Syncope 2. Abnormal electrocardiogram 3. Congestive heart failure. 5. Hypertension 6. Hypothyroidism. 7. Parkinson's disease 8. Dyslipidemia. 9. Seizure disorder 10. Anemia. Hemodynamically stable Stopped Benazepril Continue Lipitor Continue Levothyroxine Continue Keppra Continue Sinemet Consultation Date/Type/Reason Admit Date/Time Jan 26, 2017 at 19:05 Respiratory: no complaints Cardiovascular: no complaints Gastrointestinal: no complaints Genitourinary: no complaints Psychological: no complaints Social History Smoking Status: Former smoker Exam/Review of Systems Vital Signs Vitals Vital Signs Date Time Temp Pulse Resp B/P Pulse Ox O2 Delivery O2 Flow Rate FiO2 01/29/17 12:43 67 01/29/17 11:44 98.3 16 105/61 97 01/26/17 21:34 Room Air Intake and Output 01/28/17 01/28/17 01/29/17 15:00 23:00 07:00 Intake Total 1380 ml 780 ml Balance 1380 ml 780 ml Exam Constitutional: alert, oriented Head: atraumatic, normocephalic Respiratory: clear to auscultation Cardiovascular: regular rate and rhythm Gastrointestinal: nl liver, spleen, non-tender, soft Extremities: normal pulses Results Result Diagram: 01/27/1715 01/27/17 0615 Medications Medications Current Medications Atorvastatin Calcium (Lipitor) 20 mg QHS PO Last administered on 01/28/17 21:36 ; Admin Dose 20 MG; Start 01/27/17 at 21:00 Benazepril HCl (Lotensin) 10 mg DAILY PO Last administered on 01/29/17 08:33; Admin Dose 10 MG; Start 01/27/17 at 09:00 Carbidopa/Levodopa (Sinemet (25/ 100)) 1 tab TID PO Last administered on 12:42; Admin Dose 1 TAB; Start 01/27/17 at 09:00 Levetiracetam (Keppra) 750 mg BID PO Last administered on 01/29/17 08:33; Admin Dose 750 MG; Start 01/27/17 at 09:00 Levofloxacin (Levaquin) 750 mg Q48H PO Last administered on 01/28/17 23:28; Admin Dose 750 MG; Start 01/26/17 at 23:00 Nitroglycerin 0.4 tab 0.4 tab [id number] PRN SL CHEST PAIN; Start 01/26/17 at 23: 00 Sodium Chloride (1/2 NS) 1,000 ml @ 40 mls/hr Q24H IV Last administered on 01/28 22:52; Admin Dose 40 MLS/HR; Start 01/26/17 at 22:32 Ondansetron HCl (Zofran Inj) 4 mg Q6H PRN IV NAUSEA AND/OR VOMITING; Start 01/26 at 23:00 Acetaminophen (Tylenol Tab) 650 mg Q6H PRN PO PAIN LEVEL 1-3 OR FEVER; Start at 23:00 Acetaminophen (Tylenol Supp) 650 mg Q6H PRN [place] PAIN LEVEL 1-3 OR FEVER; Start 01/26/17 at 23:00 Docusate Sodium (Colace) 100 mg Q12H PRN PO CONSTIPATION; Start 01/26/17 at 23: 00 Magnesium Hydroxide (Milk Of Mag) 30 ml DAILY PRN PO CONSTIPATION; Start at 23:00 Bisacodyl (Dulcolax) 5 mg DAILY PRN PO CONSTIPATION; Start 01/26/17 at 23:00 Pantoprazole (Protonix Iv) 40 mg DAILY@06 IV Last administered on 01/29/17 06: 08; Admin Dose 40 MG; Start 01/27/17 at 06:00 NAYLA JUAREZ M.D. Jan 29, 2017 14:29
--- NOTE | 2017-01-29 17:09 | PN ---
Date/Time of Note Date/Time of Note DATE: 01/29/17 TIME: 17:08 Assessment/Plan VTE Prophylaxis VTE Prophylaxis Intervention: other Lines/Catheters IV Catheter Type (from Nrs): Peripheral IV Assessment/Plan Chief Complaint/Hosp Course IMPRESSION: 1. Syncopal episode. 2. Status post urinary tract infection. 3. Hypertension. 4. Hypothyroidism. 5. Dyslipidemia. 6. Electrolyte imbalance. PLAN PER NEURO AND CARDIO EEG Problems: Subjective 24 Hr Interval Summary Subjective hx not possible: other (NO DIZZINESS EEG PENDING) Exam/Review of Systems Vital Signs Vitals Vital Signs Date Time Temp Pulse Resp B/P Pulse Ox O2 Delivery O2 Flow Rate FiO2 01/29/17 16:53 93 01/29/17 15:41 98.5 16 109/61 96 01/26/17 21:34 Room Air Intake and Output 01/28/17 01/28/17 01/29/17 14:59 22:59 06:59 Intake Total 1380 ml 780 ml Balance 1380 ml 780 ml Exam Respiratory: diminished breath sounds Cardiovascular: regular rate and rhythm Gastrointestinal: soft Musculoskeletal: nl extremities to inspection Extremities: normal pulses 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 Results Result Diagram: 01/27/1715 01/27/1715 Medications Medications Current Medications Atorvastatin Calcium (Lipitor) 20 mg QHS PO Last administered on 01/28/17 21:36 ; Admin Dose 20 MG; Start 01/27/17 at 21:00 Carbidopa/Levodopa (Sinemet (25/ 100)) 1 tab TID PO Last administered on 12:42; Admin Dose 1 TAB; Start 01/27/17 at 09:00 Levetiracetam (Keppra) 750 mg BID PO Last administered on 01/29/17 08:33; Admin Dose 750 MG; Start 01/27/17 at 09:00 Levofloxacin (Levaquin) 750 mg Q48H PO Last administered on 01/28/17 23:28; Admin Dose 750 MG; Start 01/26/17 at 23:00 Nitroglycerin 0.4 tab 0.4 tab [id number] PRN SL CHEST PAIN; Start 01/26/17 at 23: 00 Sodium Chloride (1/2 NS) 1,000 ml @ 40 mls/hr Q24H IV Last administered on 3/3 /17at 22:52; Admin Dose 40 MLS/HR; Start 01/26/17 at 22:32 Ondansetron HCl (Zofran Inj) 4 mg Q6H PRN IV NAUSEA AND/OR VOMITING; Start 01/26 at 23:00 Acetaminophen (Tylenol Tab) 650 mg Q6H PRN PO PAIN LEVEL 1-3 OR FEVER; Start at 23:00 Acetaminophen (Tylenol Supp) 650 mg Q6H PRN [place] PAIN LEVEL 1-3 OR FEVER; Start 01/26/17 at 23:00 Docusate Sodium (Colace) 100 mg Q12H PRN PO CONSTIPATION; Start 01/26/17 at 23: 00 Magnesium Hydroxide (Milk Of Mag) 30 ml DAILY PRN PO CONSTIPATION; Start at 23:00 Bisacodyl (Dulcolax) 5 mg DAILY PRN PO CONSTIPATION; Start 01/26/17 at 23:00 Pantoprazole (Protonix Tab) 40 mg DAILY@06 PO ; Start 01/30/17 at 06:00 MYLES SCHAFFER MD Jan 29, 2017 17:09
[2017-01-29] MEDS: ATORVASTATIN 20 MG TAB PO SCH (22:04)
[2017-01-29] MEDS: SOD CHLORIDE 0.45% 1,000 ML IV SCH (22:04)
[2017-01-30] VITALS (13 sets, daily range): BP systolic 93–119; BP diastolic 41–78; PULSE 76–86; RESP 17–20
--- NOTE | 2017-01-30 03:29 | CONS ---
DATE OF ADMISSION: 01/26/2017 DATE OF CONSULTATION: REFERRING PHYSICIAN: Dr. Lovett Thank you for asking me to see the patient with you. HISTORY OF PRESENT ILLNESS: The patient is 89-year-old lady with the possibility of underlying sync opal attack for which I got a call about her for more evaluation and treatment. The patient has als o history of seizure disorder as well as the parkinsonism. The patient is on current medications wh ich include Keppra 500 mg twice a day as well as Sinemet 100/25 mg 3 times a day for which the patie nt followed up with the history of dyslipidemia for which the patient is on Lipitor. The patient is accompanied by her son in the room. PHYSICAL EXAMINATION: GENERAL: On exam today, the patient is alert, awake, following simple commands. CRANIAL NERVES: Cranial nerve II: Pupils equal on both sides, reactive to light. Cranial nerves I II, IV, and : Extraocular muscles intact. Cranial nerve V: Equal sensation to face. Cranial ne rve VII: Symmetrical face. Cranial nerve VIII: Decreased hearing bilaterally. Cranial nerves IX and X: Elevates palate. Cranial nerve XI: Elevates shoulder 5/5. Cranial nerve XII: With straig ht tongue. MOTOR: Decreased right hand delivery person, 4+/5. Sensation decreased for glove and sock area for light touc h and temperature. COORDINATION: [id number] test intact, rigidity 2+, bradykinesia 3+, postural instability 3+, re sting tremor 1+. HEART: Regular rate and rhythm. LUNGS: Equal breath sounds. ABDOMEN: Soft, relaxed, nondistended. No tenderness. ASSESSMENT AND PLAN 1. The patient is an 89-year-old with a past medical history of seizures. Keep the patient on Kepp ra 500 mg waiting for electroencephalogram which is ordered. 2. History of parkinsonism. Keep the patient on Sinemet 100/25 mg 3 times a day as needed. 3. History of insomnia. Keep the patient on Ambien 5 mg once at night as needed. 4. History of hypertension. Keep the patient on atenolol 25 mg once a day. 5. History of memory disorder. Keep the patient on Aricept 10 mg once a day. 6. History of tremor which is probably secondary to parkinsonism plus or minus essential tremor. K eep the patient on Primidone 50 mg once a day. Again, thank you for asking me to see the patient with you. Dictated By: FEDERICO BEACH/GABRIELLA Conf#: [id number] DID#: [id number]
[2017-01-30] MEDS: PANTOPRAZOLE (EC) 40 MG TAB PO SCH (05:38)
[2017-01-30] MEDS: LEVOTHYROXINE 125 MCG TAB PO SCH ×2 (05:39→07:17)
[2017-01-30] MEDS: CARBIDOPA/LEVODOPA (25/100) TAB PO SCH ×3 (08:16→21:00)
[2017-01-30] MEDS: LEVETIRACETAM 750 MG TAB PO SCH ×2 (08:16→21:00)
--- NOTE | 2017-01-30 16:21 | CONS ---
Date/Time of Note Date/Time of Note DATE: 01/30/17 TIME: 16:09 Assessment/Plan Assessment/Plan Additional Assessment/Plan 1. Syncope likely orthostatic 2. Abnormal electrocardiogram 3. Congestive heart failure. 5. Hypertension 6. Hypothyroidism. 7. Parkinson's disease 8. Dyslipidemia. 9. Seizure disorder 10. Anemia. Hemodynamically stable Encourage hydration Stopped Benazepril Continue Lipitor Continue Levothyroxine Continue Keppra Continue Sinemet Consultation Date/Type/Reason Admit Date/Time Jan 26, 2017 at 19:05 Initial Consult Date Type of Consultation: Cardiology Referring Provider: MYLES SCHAFFER MD Exam/Review of Systems Vital Signs Vitals Vital Signs Date Time Temp Pulse Resp B/P Pulse Ox O2 Delivery O2 Flow Rate FiO2 01/30/17 12:32 84 01/30/17 12:11 97.9 17 118/58 92 01/26/17 21:34 Room Air Intake and Output 01/29/17 01/29/17 01/30/17 15:00 23:00 07:00 Intake Total 1090 ml 550 ml Balance 1090 ml 550 ml Exam Constitutional: alert, oriented Head: atraumatic, normocephalic Respiratory: clear to auscultation Cardiovascular: regular rate and rhythm Gastrointestinal: nl liver, spleen, non-tender, soft Extremities: normal pulses Results Result Diagram: 01/27/17 0615 01/27/1715 Medications Medications Current Medications Atorvastatin Calcium (Lipitor) 20 mg QHS PO Last administered on 01/29/17 22:04 ; Admin Dose 20 MG; Start 01/27/17 at 21:00 Carbidopa/Levodopa (Sinemet (25/ 100)) 1 tab TID PO Last administered on 12:32; Admin Dose 1 TAB; Start 01/27/17 at 09:00 Levetiracetam (Keppra) 750 mg BID PO Last administered on 01/30/17 08:16; Admin Dose 750 MG; Start 01/27/17 at 09:00 Levofloxacin (Levaquin) 750 mg Q48H PO Last administered on 01/28/17 23:28; Admin Dose 750 MG; Start 01/26/17 at 23:00 Nitroglycerin 0.4 tab 0.4 tab [id number] PRN SL CHEST PAIN; Start 01/26/17 at 23: 00 Sodium Chloride (1/2 NS) 1,000 ml @ 40 mls/hr Q24H IV Last administered on 01/28 22:52; Admin Dose 40 MLS/HR; Start 01/26/17 at 22:32 Ondansetron HCl (Zofran Inj) 4 mg Q6H PRN IV NAUSEA AND/OR VOMITING; Start 01/26 at 23:00 Acetaminophen (Tylenol Tab) 650 mg Q6H PRN PO PAIN LEVEL 1-3 OR FEVER; Start at 23:00 Acetaminophen (Tylenol Supp) 650 mg Q6H PRN CA PAIN LEVEL 1-3 OR FEVER; Start 01/26/17 at 23:00 Docusate Sodium (Colace) 100 mg Q12H PRN PO CONSTIPATION; Start 01/26/17 at 23: 00 Magnesium Hydroxide (Milk Of Mag) 30 ml DAILY PRN PO CONSTIPATION; Start at 23:00 Bisacodyl (Dulcolax) 5 mg DAILY PRN PO CONSTIPATION; Start 01/26/17 at 23:00 Pantoprazole (Protonix Tab) 40 mg DAILY@06 PO Last administered on 01/30/17 05: 38; Admin Dose 40 MG; Start 01/30/17 at 06:00 NAYLA JUAREZ M.D. Jan 30, 2017 16:19
--- NOTE | 2017-01-30 16:23 | PDOCDIS ---
Discharge Instructions CONDITION Patient Condition: Stable HOME CARE INSTRUCTIONS: Diet Instructions: Low Fat /Cholesterol ACTIVITY: Activity Restrictions: Slowly Increase Activity FOLLOW UP/APPOINTMENTS Appointments F/U DR SCHAFFER [address] JUDD 2 WKS MYLES SCHAFFER MD Jan 30, 2017 16:23
--- NOTE | 2017-01-30 16:26 | PN ---
Date/Time of Note Date/Time of Note DATE: 01/30/17 TIME: 16:25 Assessment/Plan VTE Prophylaxis VTE Prophylaxis Intervention: other Lines/Catheters IV Catheter Type (from Nrsg): Peripheral IV Assessment/Plan Chief Complaint/Hosp Course IMPRESSION: 1. Syncopal episode.BETTER 2. Status post urinary tract infection. 3. Hypertension. 4. Hypothyroidism. 5. Dyslipidemia. 6. Electrolyte imbalance. PLAN PER NEURO AND CARDIO EEG HOME POST EEG Problems: Subjective 24 Hr Interval Summary Respiratory: no complaints Cardiovascular: no complaints Exam/Review of Systems Vital Signs Vitals Vital Signs Date Time Temp Pulse Resp B/P Pulse Ox O2 Delivery O2 Flow Rate FiO2 01/30/17 12:32 84 01/30/17 12:11 97.9 17 118/58 92 01/26/17 21:34 Room Air Intake and Output 01/29/17 01/29/17 01/30/17 15:00 23:00 07:00 Intake Total 1090 ml 550 ml Balance 1090 ml 550 ml Exam Respiratory: clear to auscultation Cardiovascular: regular rate and rhythm Gastrointestinal: soft Musculoskeletal: nl extremities to inspection Extremities: normal pulses Results Result Diagram: 01/27/17 0615 01/27/17 0615 Medications Medications Current Medications Atorvastatin Calcium (Lipitor) 20 mg QHS PO Last administered on 01/29/17 22:04 ; Admin Dose 20 MG; Start 01/27/17 at 21:00 Carbidopa/Levodopa (Sinemet (25/ 100)) 1 tab TID PO Last administered on 12:32; Admin Dose 1 TAB; Start 01/27/17 at 09:00 Levetiracetam (Keppra) 750 mg BID PO Last administered on 01/30/17 08:16; Admin Dose 750 MG; Start 01/27/17 at 09:00 Levofloxacin (Levaquin) 750 mg Q48H PO Last administered on 01/28/17 23:28; Admin Dose 750 MG; Start 01/26/17 at 23:00 Nitroglycerin 0.4 tab 0.4 tab [id number] PRN SL CHEST PAIN; Start 01/26/17 at 23: 00 Sodium Chloride (1/2 NS) 1,000 ml @ 40 mls/hr Q24H IV Last administered on 01/28 22:52; Admin Dose 40 MLS/HR; Start 01/26/17 at 22:32 Ondansetron HCl (Zofran Inj) 4 mg Q6H PRN IV NAUSEA AND/OR VOMITING; Start 01/26 at 23:00 Acetaminophen (Tylenol Tab) 650 mg Q6H PRN PO PAIN LEVEL 1-3 OR FEVER; Start at 23:00 Acetaminophen (Tylenol Supp) 650 mg Q6H PRN DE PAIN LEVEL 1-3 OR FEVER; Start 01/26/17 at 23:00 Docusate Sodium (Colace) 100 mg Q12H PRN PO CONSTIPATION; Start 01/26/17 at 23: 00 Magnesium Hydroxide (Milk Of Mag) 30 ml DAILY PRN PO CONSTIPATION; Start at 23:00 Bisacodyl (Dulcolax) 5 mg DAILY PRN PO CONSTIPATION; Start 01/26/17 at 23:00 Pantoprazole (Protonix Tab) 40 mg DAILY@06 PO Last administered on 01/30/17t 05: 38; Admin Dose 40 MG; Start 01/30/17 at 06:00 MYLES SCHAFFER MD Jan 30, 2017 16:26
[2017-01-30] MEDS: ATORVASTATIN 20 MG TAB PO SCH (21:00)
--- NOTE | 2017-01-30 23:22 | HKNOTE ---
DATE OF SERVICE: Thank you for asking me to see the patient with you. The patient is an 89-year-old lady with a past medical history of seizure disorder in which is on Ke ppra 500 mg twice a day as well as a history of parkinsonism with the patient on Sinemet 100/25 mg. The patient in the room accompanied by her son. CURRENT MEDICATION: 1. Bystolic 40 mg once daily. 2. Lipitor 20 mg once a day. 3. Sinemet 100/25 mg 3 times a day. 4. Keppra 750 mg twice a day. 5. Synthroid 125 mcg once a day. 6. Albuterol inhaler twice a day. 7. Levaquin 750 mg once a day. 8. Zofran 4 mg twice a day. 9. Colace 100 mg twice a day. 10. Milk of Magnesia 30 mg once a day. 11. Sodium chloride as needed. PHYSICAL EXAMINATION: GENERAL: The patient is alert, awake, and follows simple commands. ____ difficult to follow seconda ry to ____. CRANIAL NERVES: Cranial nerve II: Pupils equal on both sides, reactive to light. Cranial nerves I II, IV, and : Extraocular muscles intact. No nystagmus. Cranial nerve V and VII: ____. Crania l nerve VIII: Decreased hearing bilaterally. Cranial nerves IX, X: Elevates palate. Cranial nerv e XI: Elevates shoulder 5/5. Cranial nerve XII: With straight tongue. MOTOR: Rigidity 2+, ____ 3+, bradykinesia 2+, resting tremor 1+. HEART: Regular rate and rhythm. LUNGS: Equal breath sounds. ABDOMEN: Soft, ____, nondistended, no tenderness. ASSESSMENT AND PLAN 1. The patient is 89 years old with underlying seizure disorder in which the Keppra was increased t o 750 mg twice a day. Still waiting for electroencephalogram for more evaluation and treatment. 2. History of Parkinson's. Keep the patient under Sinemet 100/25 mg three times a day and follow u p the patient with fall precautions and might need physical therapy for that. 3. History of insomnia. Give the patient Ambien 5 mg once at night. 4. History of hypertension. Give the patient atenolol 25 mg once a day. 5. History of memory disorder. Give the patient Aricept 10 mg once a day. Again, thank you for asking me to see the patient with you. Dictated By: FEDERICO BEACH/GABRIELLA Conf#: [id number] DID#: [id number]
[2017-01-30] MEDS: SOD CHLORIDE 0.45% 1,000 ML IV SCH (23:31)
[2017-01-30] MEDS: LEVOFLOXACIN 750 MG TABLET PO SCH (23:31)
[2017-01-31] VITALS (8 sets, daily range): BP systolic 100–163; BP diastolic 54–99; PULSE 90–96; RESP 15–19
[2017-01-31] MEDS: PANTOPRAZOLE (EC) 40 MG TAB PO SCH (05:00)
[2017-01-31] MEDS: LEVOTHYROXINE 125 MCG TAB PO SCH (06:22)
--- NOTE | 2017-01-31 07:07 | SP ---
DATE OF PROCEDURE: REFERRING PHYSICIAN: ____. INDICATIONS: The patient is an 89-year-old with past medical history of seizure disorder. Patient on Keppra 750 mg twice a day. TECHNIQUE: EEG done using 10-20 International electrode system with photic stimulation. FINDINGS: Bilateral occipital hemisphere view showed ____ while the patient is awake in the form of alpha wave ____ and theta wave, medium sized, low amplitude. Photic stimulation done did not elici t drive. No epileptiform discharge or seizure activity is recorded. IMPRESSION: This is normal electroencephalogram. Normal electroencephalogram does not exclude a cl inical history of seizure. Followup EEG may be needed if clinically indicated. Again, thank you for asking me to see the patient with you. Dictated By: FEDERICO BEACH/GABRIELLA Conf#: [id number] DID#: [id number]
[2017-01-31] MEDS: CARBIDOPA/LEVODOPA (25/100) TAB PO SCH ×2 (09:30→13:31)
[2017-01-31] MEDS: LEVETIRACETAM 750 MG TAB PO SCH (09:30)
== END 2017-01-31 14:59 | disposition home or self-care (01) | DRG 312 ==
LOC: E/R 13:52 → MS4 19:05
PROVIDERS: ADMIT Internal Medicine Nephrology; ATTEND Internal Medicine Nephrology
DX: R55 Syncope and collapse (principal); G20 Parkinson's disease; J44.9 Chronic obstructive pulmonary disease, unspecified; G40.909 Epilepsy, unspecified, not intractable, without status epilepticus; I10 Essential (primary) hypertension; E03.9 Hypothyroidism, unspecified; E78.5 Hyperlipidemia, unspecified; G47.00 Insomnia, unspecified; R41.3 Other amnesia; D64.9 Anemia, unspecified; Z87.440 Personal history of urinary (tract) infections; Z87.891 Personal history of nicotine dependence
CPT/HCPCS: 70450; 71010; 80048; 80053; 80061; 82550; 82553; 84443; 84484; 85025; 85610; 85730; 93005; 93306; 95819; 97110; 97162; 97530; C9113; J7030; J7040

== ENCOUNTER 2017-02-07 11:06 | Inpatient (IN) | payer MEDICARE ==
[~2017-02-07] VITALS: Ht 162.6 cm; Wt 66.9 kg
[~2017-02-07 11:06] MED LIST changes: -ASPI-664 PO; +ATOR20TA38 PO; +BENA10TA48 PO; +IPRA3AMP INHALATION; -ISOS60TA PO; -METO-429 PO; -PRAM0.5T PO; -PRIM50TA38 PO; -SERT25TA PO; -SIMV40TA2 PO
[2017-02-07] MEDS ORDERED: SOD CHLORIDE 0.9% 1,000 ML IV STA (11:14)
--- NOTE | 2017-02-07 11:49 | RADRPT ---
PROCEDURE: XR Chest. CLINICAL INDICATION: 89-year-old female with abdominal pain. TECHNIQUE: Single frontal view of the chest was obtained COMPARISON: Chest x-ray 01/26/2017. FINDINGS: The soft tissues are normal. There are degenerative osteophytes in the thoracic spine. The the hea rt is borderline enlarged. There are calcifications in the mitral annulus. The cardiomediastinal s ilhouette, pulmonary vasculature and hilar structures are normal. There are vascular calcifications in the aortic arch. No acute infiltrate is identified. The costophrenic angles are normal. IMPRESSION: 1. Atherosclerosis with ectasia of the thoracic aorta. 2. Calcified mitral annulus. 3. Borderline left ventricular enlargement. 4. No evidence of active cardiopulmonary disease. RPTAT:AAJJ Physician Sera Date Time Electronically viewed and signed by Celso Man Physician on 02/07/2017 11:49 RESHMA/
[2017-02-07 12:04] LABS: ADD SCAN DIFF NO
[2017-02-07 12:10] LABS: BASOPHIL # 0.1 10^3/ul (0.0-0.1); BASOPHILS % 0.6 % (0.0-2.0); EOSINOPHILS # 0.4 10^3/ul (0.0-0.5); EOSINOPHILS % 4.1 % (0.0-7.0); HEMATOCRIT 37.6 % (37.0-47.0); HEMOGLOBIN 11.8 g/dl (12.0-16.0); LYMPHOCYTES # 2.8 10^3/ul (0.8-2.9); LYMPHOCYTES % 32.9 % (15.0-51.0); MEAN CORPUSCULAR HEMOGLOBIN 30.2 pg (29.0-33.0); MEAN CORPUSCULAR HGB CONC 31.4 g/dl (32.0-37.0); MEAN CORPUSCULAR VOLUME 96.2 fl (82.0-101.0); MEAN PLATELET VOLUME 10.5 fl (7.4-10.4); MONOCYTE # 0.8 10^3/ul (0.3-0.9); MONOCYTES % 9.3 % (0.0-11.0); NEUTROPHIL # 4.4 10^3/ul (1.6-7.5); PLATELET COUNT 344 10^3/UL (140-415); RED BLOOD COUNT 3.91 10^6/ul (4.20-5.40); RED CELL DISTRIBUTION WIDTH 15.7 % (11.5-14.5); WHITE BLOOD COUNT 8.5 10^3/ul (4.8-10.8)
[2017-02-07 12:24] LABS: ALBUMIN 3.1 g/dl (3.3-4.9)
[2017-02-07 12:25] LABS: CHLORIDE 109 mmol/L (97-110); POTASSIUM 3.5 mmol/L (3.5-5.1); SODIUM 144 mmol/L (135-144)
[2017-02-07 12:27] LABS: ALBUMIN/GLOBULIN RATIO 1.14; ALKALINE PHOSPHATASE 95 IU/L (42-121); ANION GAP 15 (8-16); ASPARTATE AMINO TRANSFERASE 15 IU/L (15-46); BILIRUBIN,INDIRECT 0.2 mg/dl (0-1.1); BILIRUBIN,TOTAL 0.2 mg/dl (0.2-1.3); CARBON DIOXIDE 24 mmol/L (21-31); CREATININE 0.79 mg/dl (0.44-1.00); TOTAL PROTEIN 5.8 g/dl (6.1-8.1)
[2017-02-07 12:28] LABS: ALANINE AMINOTRANSFERASE 11 IU/L (13-69); BLOOD UREA NITROGEN 14 mg/dl (7-20); CALCIUM 8.7 mg/dl (8.4-10.2); GLUCOSE 107 mg/dl (70-220)
[2017-02-07 12:42] LABS: TROPONIN-I < 0.012 ng/ml (0.00-0.12)
--- NOTE | 2017-02-07 12:45 | ERA ---
ER Documentation Chief Complaint Date/Time DATE: 02/07/17 TIME: 12:41 Chief Complaint ALOC HPI 89-year-old woman with a history of seizures, syncope, and dementia presents from home after possible syncopal episode. The episode was not witnessed and there may have been a seizure because she did experience altered mentation after the event. She is supposed to use Keppra daily. She has had no fevers or chills, no vomiting or diarrhea, no complaints of chest pain or shortness of breath. HPI was supplemented by reviewing past medical history/records and speaking to EMS who are at the scene. ROS All systems reviewed and are negative except as per history of present illness. Medications Home Meds Active Scripts Levothyroxine Sodium* (Synthroid*) 125 Mcg Tablet, 125 MCG PO BEFORE BREAKFAST for 30 Days, TAB Prov:MYLES SCHAFFER MD 08/29/16 Reported Medications Ipratropium-Albuterol (Ipratropium-Albuterol) 0.5-3 Mg/3 Ml Ampul.neb, 3 ML INHALATION Q6 Y for SHORTNESS OF BREATH, #30 VIAL 01/26/17 Benazepril Hcl* (Benazepril Hcl*) 10 Mg Tablet, 10 MG PO DAILY, #30 TAB 01/26/17 Atorvastatin Calcium* (Atorvastatin Calcium*) 20 Mg Tablet, 20 MG PO QHS, #30 TAB 01/26/17 Nitroglycerin* (Nitrostat*) 0.4 Mg Tab.subl, 0.4 MG SL Q5MIN Y for CHEST PAIN, BOTTLE 01/05/16 Levetiracetam* (Keppra*) 750 Mg Tablet, 750 MG PO BID, TAB 01/05/16 Carbidopa-Levodopa* (Sinemet*) 25-100 Mg Tab, 1 TAB PO TID, TAB 01/05/16 Acetaminophen (TYLENOL 325 MG TAB) 325 Mg Tab, 650 MG PO Q6 Y 08/09/13 Allergies Allergies: Coded Allergies: No Known Allergies (Verified Allergy, Unknown, 02/07/17) PMhx/Soc Seizure disorder, syncopal episodes, UTIs, hypothyroidism, hypertension, Parkinson's/dementia, dyslipidemia History of Surgery: Yes (abdomen due to cancer 10 years ago) Anesthesia Reaction: No Hx Neurological Disorder: No Hx Respiratory Disorders: No Hx Cardiac Disorders: No Hx Psychiatric Problems: No Hx Miscellaneous Medical Probl: Yes (COPD, PD) Hx Alcohol Use: No Hx Substance Use: No Hx Tobacco Use: No FmHx Family History: No diabetes Physical Exam Vitals Vital Signs Date Time Temp Pulse Resp B/P Pulse Ox O2 Delivery O2 Flow Rate FiO2 02/07/17 11:11 70 18 80/44 95 Physical Exam GENERAL: Elderly, chronically debilitated woman appears dehydrated encephalopathic. Afebrile HEENT: Dry mucous membranes, pale conjunctiva, no cervical spine tenderness or step-off deformities, no goiter, no jaundice or icterus, extraocular movements intact without pain. No submandibular induration, and no pharyngeal erythema NEURO: Eyes are closed, patient is responsive to painful stimuli, pupils equal round reactive to light, no facial asymmetry, lower extremity contractures, no focal deficits CARDIAC: Regular rate and rhythm, no murmurs rubs or gallops LUNGS: Clear bilaterally no wheezing crackles or stridor ABDOMEN: Soft nontender, no guarding, no rigidity, no rebound, no psoas sign no obturator sign. Normoactive bowel sounds SKIN: Warm and dry to touch, no abrasions, contusions, or hematomas, no lacerations, no ecchymosis, no target lesions, and without ulcers EXTREMITIES: No clubbing cyanosis or edema, calves are bilaterally symmetrical, no Homans sign, no popliteal cord sign. Distal pulses equal and bilateral PSYCH: Normal affect without agitation or irritability Result Diagram: 02/07/17 1141 02/07/17 1141 Results 24 hrs Laboratory Tests Test 02/07/17 11:41 Alanine Aminotransferase (ALT/SGPT) 11IU/L Albumin 3.1g/dl Albumin/Globulin Ratio 1.14 Alkaline Phosphatase 95IU/L Anion Gap 15 Aspartate Amino Transf (AST/SGOT) 15IU/L Basophils # 0.110^3/ul Basophils % 0.6% Blood Urea Nitrogen 14mg/dl Calcium Level 8.7mg/dl Carbon Dioxide Level 24mmol/L Chloride Level 109mmol/L Creatinine 0.79mg/dl Direct Bilirubin 0.00mg/dl Eosinophils # 0.410^3/ul Eosinophils % 4.1% Globulin 2.70g/dl Glucose Level 107mg/dl Hematocrit 37.6% Hemoglobin 11.8g/dl Indirect Bilirubin 0.2mg/dl Lipase 23U/L Lymphocytes # 2.810^3/ul Lymphocytes % 32.9% Mean Corpuscular Hemoglobin 30.2pg Mean Corpuscular Hemoglobin Concent 31.4g/dl Mean Corpuscular Volume 96.2fl Mean Platelet Volume 10.5fl Monocytes # 0.810^3/ul Monocytes % 9.3% Neutrophils # 4.410^3/ul Neutrophils % 52.0% Nucleated Red Blood Cells # 0.010^3/ul Nucleated Red Blood Cells % 0.0/100WBC Platelet Count 73712^3/UL Potassium Level 3.5mmol/L Red Blood Count 3.9110^6/ul Red Cell Distribution Width 15.7% Sodium Level 144mmol/L Total Bilirubin 0.2mg/dl Total Protein 5.8g/dl Troponin I < 0.012ng/ml White Blood Count 8.510^3/ul Current Medications Medications (Trade) Dose Ordered Sig/Kristofer Route PRN Reason Start Time Stop Time Status Last Admin Dose Admin Sodium Chloride 1,000 ml @ 2,000 mls/hr Q30M STAT IV 02/07/17 11:14 02/07/17 11:43 DC Levetiracetam/ Sodium Chloride (Keppra Iv/NS) 105 ml @ 420 mls/hr ONCE ONCE IVPB 02/07/17 13:00 02/07/17 13:14 Procedures/MDM IV line was established patient was placed on cardiac cath technologist rhythm strip revealed a sinus rhythm at about 60 bpm with upright P and T waves. Patient was afebrile although initially she was hypotensive and appeared dehydrated. I administered 2 L normal saline intravenously for dehydration, Giles catheter is also been placed. Chest X-ray 1V Interpreted by me: Soft Tissue: No acute abnormalities Bones: No acute abnormalities Mediastinum/Cardiac Silhouette/Lungs: No acute abnormalities CBC was unremarkable, electrolytes revealed dehydration with a BUN/creatinine 14 /0.8, liver function tests are normal, troponin was negative. Urine analysis was positive for infection I treated her here with ceftriaxone 1 g IV Patient will be admitted to telemetry setting under Dr. Schaffer for syncopal episodes. I also administered 1 dose of Keppra 500 mg IV Departure Diagnosis: Primary Impression: Acute encephalopathy Additional Impressions: Postictal state Dehydration Syncope Qualified Code: R55 - Syncope, unspecified syncope type UTI (urinary tract infection) Qualified Code: N30.00 - Acute cystitis without hematuria Seizures Condition: KAYLYNN Menezes MD Feb 07, 2017 12:45
[2017-02-07] MEDS ORDERED: LEVETIRACETAM IV 500 MG in SOD CHLORIDE 0.9% 100 ML IVPB ONE (13:00)
[2017-02-07 13:01] LABS: ADD UMIC YES; URINE BILIRUBIN (Dip) 1+ (NEGATIVE); URINE BLOOD (Dip) TRACE (NEGATIVE); URINE GLUCOSE (Dip) NEGATIVE (NEGATIVE); URINE KETONES (Dip) 15 (NEGATIVE); URINE LEUKOCYTE ESTERASE (Dip) 2+ (NEGATIVE); URINE NITRITE (Dip) POSITIVE (NEGATIVE); URINE TOTAL PROTEIN (Dip) 2+ (NEGATIVE); URINE UROBILINOGEN (Dip) 2.0 E.U./dL (0.1-1.0)
[2017-02-07 13:20] LABS: ICTOTEST NEGATIVE (NEGATIVE)
[2017-02-07 13:21] LABS: BACTERIA,URINE MANY; SQUAMOUS EPITHELIAL CELL,UR FEW; URINE COLOR BROWN (YELLOW); URINE RBCS NONE SEEN /HPF (0)
[2017-02-07] MEDS ORDERED: CEFTRIAXONE 1 GM/50 ML (PMX) 50 ML IVPB ONE (13:30)
[2017-02-07 14:00] VITALS: TEMP 98.3
[2017-02-07 14:55] VITALS: Ht 162.6 cm; Wt 66.9 kg
[2017-02-07 16:04] VITALS: BP 101/53; RESP 20
[2017-02-07 16:31] VITALS: PULSE 66
[2017-02-07] MEDS: SOD CHLORIDE 0.9% 1,000 ML IV SCH (16:49)
[2017-02-07] MEDS ORDERED: ACETAMINOPHEN 325 MG TAB PO PRN (17:00)
[2017-02-07] MEDS ORDERED: ALBUTEROL/IPRATROPIUM (NEB) 3 ML AMP HHN PRN (17:00)
[2017-02-07] MEDS ORDERED: NITROGLYCERIN (SL) 0.4 MG TAB SL PRN (17:00)
[2017-02-07 20:00] VITALS: BP 101/72; RESP 20
[2017-02-07 20:02] VITALS: PULSE 72
--- NOTE | 2017-02-07 20:41 | CONS ---
DATE OF ADMISSION: 02/07/2017 DATE OF CONSULTATION: 02/07/2017 Thank you, Dr. Schaffer, for your kind referral. HISTORY OF PRESENT ILLNESS: The patient presented following episodes of loss of consciousness. Acc ording to the ER note, she had syncope at home, not witnessed. According to patient's sonAlan. I talked to him on the phone [phone]. She lost consciousness in the wheelchair and was shaking "a little." According to patient's son, she has history of seizures for 5 years. She is taking med icine for seizures and did not have any breakthrough episodes for those years. She was on Keppra 50 0 mg twice daily. She was in the hospital 1 month ago with episodes of transient encephalopathy and the dose of Keppra was increased to 750 twice daily. She also has at least 5-year history of Parkinson disease, currently on carbidopa, levodopa 25/100 m g. 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 SOCIAL HISTORY: No alcohol, tobacco, drug use. FAMILY HISTORY: Not contributory. ALLERGIES: NONE. MEDICATIONS: Prior to admission: 1. Levothyroxine. 2. Benazepril. 3. Atorvastatin 20. 4. Nitrostat. 5. Keppra 750 twice daily. 6. Carbidopa/levodopa 25/100 mg 3 times a day. 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 Labs shows hemoglobin 11.8, hematocrit 37.6, normal CBC otherwise. Normal PT, PTT. Chemistry: Com prehensive metabolic panel within normal limits with exception of total protein 5.8, albumin 3.1. U rinalysis: Positive nitrites, 1+ bilirubin, 2+ leukocyte esterase, more than 50 WBCs. CURRENT MEDICATIONS: 1. Benazepril. 2. Synthroid. 3. Lipitor. 4. Sinemet. 5. Keppra 750 twice daily. 6. She received ceftriaxone in the emergency room. 7. She received an additional 500 mg of Keppra in the ER. REVIEW OF SYSTEMS: All pertinent positives included in the above history of present illness. PHYSICAL EXAMINATION: VITAL SIGNS: Today temperature 97.3, pulse 66, 20 respirations, 101/53 blood pressure. GENERAL: Not in acute distress, lying in bed. HEENT: Normocephalic, atraumatic head. NECK: No carotid bruits. No thyromegaly. LUNGS: Clear to auscultation bilaterally. CARDIAC: Normal cardiac rhythm and sounds. ABDOMEN: Soft, nontender. EXTREMITIES: No cyanosis, clubbing, or edema. NEUROLOGIC: She is awake, alert, and oriented x3 with fluent speech. Cranial nerve examination rashaun ws intact visual miranda bilaterally. Pupils round, reactive to light from 3 to 2 mm, sluggishly, bi laterally. Extraocular movements intact without nystagmus. Symmetrical face. Preserved facial str ength and sensation. Tongue is in midline. Palate elevates symmetrically. Motor strength examinat ion seems to be preserved. Symmetrical bilaterally. Some give-way in lower extremities. Deep tend on reflexes 2+ upper extremities, absent in lower extremities. Equivocal response to plantar stimul ation bilaterally. Coordination preserved on [id number]-[id number]-jayxnd testing. There is some amount of cog wheeling noticed in upper extremities and resting tremor in fingers. IMPRESSION: 1. Syncopal episode versus seizure episode in patient with known history of seizures. I will incre ase Keppra, make it 1000 mg twice daily. She presented with urinary tract infection, which will be treated by primary MD. I will continue current treatment otherwise. 2. History of Parkinson disease. Continue same medications. Thank you very much for this interesting consultation. Dictated By: MARCIAL VERDE/GABRIELLA Conf#: [id number] DID#: [id number] CC: MYLES SCHAFFER MD;*EndCC*
[2017-02-07] MEDS ORDERED: LEVETIRACETAM 750 MG TAB PO SCH ×2 (21:00)
[2017-02-07] MEDS: LEVETIRACETAM 500 MG TAB PO SCH (21:18)
[2017-02-07] MEDS: ATORVASTATIN 20 MG TAB PO SCH (21:18)
[2017-02-07] MEDS: CARBIDOPA/LEVODOPA (25/100) TAB PO SCH (21:58)
--- NOTE | 2017-02-07 22:54 | QN ---
Documentation Comment [id number] MYLES SCHAFFER MD Feb 07, 2017 22:54
[2017-02-08] VITALS (13 sets, daily range): BP systolic 93–142; BP diastolic 46–83; PULSE 63–84; RESP 18–20
--- NOTE | 2017-02-08 06:33 | HP ---
DATE OF ADMISSION: 02/07/2017 HISTORY OF PRESENT ILLNESS: The patient with history of UTI, history of seizure disorder, history of Parkinson disease, recently discharged from this hospital, presented back with questionable passing out, questionable seizure. The patient's case was discussed with the ER physician. Patient noted to have a urinalysis that is positive. The patient has a leukocyte esterase 2+, WBC more than 50, bacteria many, and patient's sodium 140, potassium 3.5, hematocrit 37.6. The patient had a chest x-ray done in the ER shows atherosclerosis. aorta calcified, mitral and borderline leftward enlargement, no evidence of active acute cardiopulmonary disease. The patient is being admitted for further management. PAST MEDICAL HISTORY: Please review the old chart for history of syncope. The patient has a history of syncope, seizure disorder. The patient is status post normal in the past. The patient has a history of syncope, abnormal ECG, congestive heart failure, hypertension, hypothyroidism, Parkinson disease, dyslipidemia, history of , multiple hospitalizations. ALLERGY HISTORY: Unchanged. FAMILY HISTORY: Noncontributory. SOCIAL HISTORY: Negative. MEDICATION HISTORY: The patient is on: 1. Tylenol. 2. Albuterol. 3. Lipitor. 4. Benazepril. 5. Carbidopa/levodopa. 6. Keppra. 7. Levothyroxine. REVIEW OF SYSTEMS HEENT: Unremarkable. RESPIRATORY: Unremarkable. CARDIOVASCULAR: Unremarkable. ABDOMEN: Unremarkable. GENITOURINARY: Complaining of some dysuria PHYSICAL EXAMINATION: GENERAL: The patient is awake, alert, not in any acute respiratory distress. VITAL SIGNS: Stable. HEAD: Atraumatic, normocephalic. Pupils equal, reactive to light. NECK: Supple. No JVD. LUNGS: Clear. CARDIOVASCULAR: S1, S2 normal. ABDOMEN: Soft, nontender. Bowel sounds present. No palpable mass or hepatosplenomegaly. EXTREMITIES: There is no cyanosis, clubbing, or edema. CENTRAL NERVOUS SYSTEM: The patient is awake, alert with some parkinsonian features, otherwise unremarkable. IMPRESSION: 1. The patient was admitted. 2. Questionable history of UTI Anemia. PLAN: Give this patient IV fluid, antibiotic, neurology consultation, cardiology consultation. The patient will be monitored. Continue home medication. Orders were done. The patient is currently on: 1. Keppra. 2. IV fluid. 3. Tylenol. 4. Lipitor. 5. Benazepril. 6. Carbidopa, levodopa 25/100 t.i.d. 7. Keppra. 8. Levothyroxine. Dictated By: MYLES MENDIOLA/GABRIELLA Conf#: [id number] DID#: [id number] MTDD
[2017-02-08] MEDS: LEVOTHYROXINE 125 MCG TAB PO SCH (07:29)
[2017-02-08 07:47] LABS: ADD SCAN DIFF NO
[2017-02-08 07:56] LABS: BASOPHILS % 0.4 % (0.0-2.0); EOSINOPHILS # 0.5 10^3/ul (0.0-0.5); EOSINOPHILS % 6.5 % (0.0-7.0); HEMATOCRIT 35.6 % (37.0-47.0); HEMOGLOBIN 10.6 g/dl (12.0-16.0); LYMPHOCYTES # 2.6 10^3/ul (0.8-2.9); LYMPHOCYTES % 33.7 % (15.0-51.0); MEAN CORPUSCULAR HEMOGLOBIN 29.5 pg (29.0-33.0); MEAN CORPUSCULAR HGB CONC 29.8 g/dl (32.0-37.0); MEAN CORPUSCULAR VOLUME 99.2 fl (82.0-101.0); MEAN PLATELET VOLUME 10.3 fl (7.4-10.4); MONOCYTES % 12.6 % (0.0-11.0); NEUTROPHIL # 3.5 10^3/ul (1.6-7.5); NEUTROPHILS % 45.6 % (39.0-77.0); PLATELET COUNT 244 10^3/UL (140-415); RED BLOOD COUNT 3.59 10^6/ul (4.20-5.40); WHITE BLOOD COUNT 7.7 10^3/ul (4.8-10.8)
[2017-02-08 08:25] LABS: ALBUMIN 2.8 g/dl (3.3-4.9)
[2017-02-08 08:26] LABS: POTASSIUM 3.2 mmol/L (3.5-5.1)
[2017-02-08 08:28] LABS: ALBUMIN/GLOBULIN RATIO 1.07; CREATININE 0.81 mg/dl (0.44-1.00); TOTAL PROTEIN 5.4 g/dl (6.1-8.1)
[2017-02-08 08:29] LABS: CALCIUM 7.7 mg/dl (8.4-10.2)
[2017-02-08] MEDS: LEVETIRACETAM 500 MG TAB PO SCH ×2 (08:38→21:42)
[2017-02-08] MEDS: CARBIDOPA/LEVODOPA (25/100) TAB PO SCH ×3 (08:38→21:42)
[2017-02-08] MEDS: BENAZEPRIL 10 MG TAB PO SCH (08:38)
[2017-02-08] MEDS: CEFEPIME 1GM/50 ML (PMX) 50 ML IVPB SCH (08:38)
[2017-02-08] MEDS ORDERED: CEFEPIME 1GM/50 ML (PMX) 50 ML IVPB SCH (09:00)
[2017-02-08] MEDS: SOD CHLORIDE 0.9% 1,000 ML IV SCH (12:12)
[2017-02-08] MEDS ORDERED: POTASSIUM CHLORIDE (SR) 20 MEQ TAB PO STA (17:07)
--- NOTE | 2017-02-08 19:31 | CONS ---
Date/Time of Note Date/Time of Note DATE: 02/08/17 TIME: 19:29 Consult Date/Type/Reason Admit Date/Time Feb 07, 2017 at 13:03 Initial Consult Date Type of Consultation: neurology Subjective no seizures, no acute events Objective Vital Signs Date Time Temp Pulse Resp B/P Pulse Ox O2 Delivery O2 Flow Rate FiO2 02/08/17 17:07 71 02/08/17 15:57 97.7 20 113/57 95 02/08/17 10:03 21 02/07/17 14:00 Nasal Cannula 2.0 Intake and Output 02/07/17 02/07/17 02/08/17 15:00 23:00 07:00 Intake Total 580 ml 300 ml Balance 580 ml 300 ml Results/Medications Result Diagram: 02/08/1772902/08/1730 Results 24 hrs Laboratory Tests Test 02/08/17 07:30 Alanine Aminotransferase (ALT/SGPT) 14 Albumin 2.8 L Albumin/Globulin Ratio 1.07 Alkaline Phosphatase 88 Anion Gap 12 Aspartate Amino Transf (AST/SGOT) 16 Basophils # 0.0 Basophils % 0.4 Blood Urea Nitrogen 13 Calcium Level 7.7 L Carbon Dioxide Level 25 Chloride Level 109 Creatinine 0.81 Direct Bilirubin 0.00 Eosinophils # 0.5 Eosinophils % 6.5 Globulin 2.60 Glucose Level 80 Hematocrit 35.6 L Hemoglobin 10.6 L Indirect Bilirubin 0.0 Lymphocytes # 2.6 Lymphocytes % 33.7 Mean Corpuscular Hemoglobin 29.5 Mean Corpuscular Hemoglobin Concent 29.8 L Mean Corpuscular Volume 99.2 Mean Platelet Volume 10.3 Monocytes # 1.0 H Monocytes % 12.6 H Neutrophils # 3.5 Neutrophils % 45.6 Nucleated Red Blood Cells # 0.0 Nucleated Red Blood Cells % 0.0 Platelet Count 244 # Potassium Level 3.2 L Red Blood Count 3.59 L Red Cell Distribution Width 16.0 H Sodium Level 143 Total Bilirubin 0.0 L Total Protein 5.4 L White Blood Count 7.7 Medications Current Medications Sodium Chloride (NS) 1,000 ml @ 50 mls/hr Q20H IV Last administered on 12:12; Admin Dose 50 MLS/HR; Start 02/07/17 at 17:00 Acetaminophen (Tylenol Tab) 650 mg Q6H PRN PO PAIN Last administered on 21:18; Admin Dose 650 MG; Start 02/07/17 at 17:00 Atorvastatin Calcium (Lipitor) 20 mg QHS PO Last administered on 02/07/17 21: 18; Admin Dose 20 MG; Start 02/07/17 at 21:00 Benazepril HCl (Lotensin) 10 mg DAILY PO Last administered on 02/08/17 08:38; Admin Dose 10 MG; Start 02/08/17 at 09:00 Carbidopa/Levodopa (Sinemet (25/ 100)) 1 tab TID PO Last administered on 12:13; Admin Dose 1 TAB; Start 02/07/17 at 21:00 Nitroglycerin (Nitroglycerin (Sl Tab) 0.4 Mg) 1 tab [id number] PRN SL CHEST PAIN ; Start 02/07/17 at 17:00 Levetiracetam 1000 mg 1,000 mg BID PO Last administered on 02/08/17 08:38; Admin Dose 1,000 MG; Start 02/07/17 at 21:00 Cefepime HCl (Maxipime 1gm/50 ml (Pmx)) 50 ml @ 100 mls/hr DAILY IVPB Last administered on 02/08/17 08:38; Admin Dose 100 MLS/HR; Start 02/08/17 at 09:00 Assessment/Plan Chief Complaint/Hosp Course PHYSICAL EXAMINATION: GENERAL: Not in acute distress, lying in bed. HEENT: Normocephalic, atraumatic head. NECK: No carotid bruits. No thyromegaly. LUNGS: Clear to auscultation bilaterally. CARDIAC: Normal cardiac rhythm and sounds. ABDOMEN: Soft, nontender. EXTREMITIES: No cyanosis, clubbing, or edema. NEUROLOGIC: She is awake, alert, and oriented x3 with fluent speech. Cranial nerve examination shows intact visual miranda bilaterally. Pupils round, reactive to light from 3 to 2 mm, sluggishly, bilaterally. Extraocular movements intact without nystagmus. Symmetrical face. Preserved facial strength and sensation. Tongue is in midline. Palate elevates symmetrically. Motor strength examination seems to be preserved. Symmetrical bilaterally. Some give-way in lower extremities. Deep tendon reflexes 2+ upper extremities, absent in lower extremities. Equivocal response to plantar stimulation bilaterally. Coordination preserved on [id number] testing. There is some cogwheeling noticed in upper extremities and resting tremor in fingers. IMPRESSION: 1. Syncopal episode versus seizure episode in patient with known history of seizures. Keppra was increased to 1000 mg twice daily. She presented with urinary tract infection, which will be treated by primary MD. 2. History of Parkinson disease. Continue same medications. Problems: MARCIAL ZAMARRIPA MD Feb 08, 2017 19:31
--- NOTE | 2017-02-08 20:21 | CONS ---
DATE OF ADMISSION: 02/07/2017 DATE OF CONSULTATION: 02/08/2017 REFERRING PHYSICIAN: Dr. Schaffer. HISTORY OF PRESENT ILLNESS: Ms. Heredia is an 89-year-old woman, long-standing patient of Dr. Jace dominguez, who has a history of hypertension, dyslipidemia, history of coronary artery disease, prior histor y of syncopal episodes, COPD, Parkinson's disease, who comes to the hospital now for evaluation of s eizure-like activity. She was witnessed to have a syncopal episode with seizure-like activity by he r son, and she was brought to the hospital for further evaluation. Patient does not appear to be in hemodynamic instability now. She has a history of prior CVA, which makes discussion with her somew hat difficult. But, for now, patient appears to be fairly stable. There is no arrhythmia on telemet ry. For now, conservative therapy is expected. Will continue to document patient's fluid status and provide recommendation of care as more information on her condition becomes available. PAST MEDICAL HISTORY: 1. History of coronary artery disease. 2. COPD. 3. Parkinson's disease. 4. Possible CVA. 5. Prior history of syncope. 6. History of seizure activity. ALLERGIES: NO KNOWN DRUG ALLERGIES. SOCIAL HISTORY: Patient is not a smoker. Does not drink. Does not use drugs. FAMILY HISTORY: Negative for sudden cardiac or premature coronary artery disease. MEDICATIONS: Patient is on Lipitor 20 mg at bedtime, , Keppra 750 mg , Synthroid 125 mcg daily, Protonix, sublingual , Zofran, Colace, milk of magnesia, and she received IV fluids befo re. REVIEW OF SYSTEMS: CONSTITUTIONAL: No fevers, no chills. Seizure episode as noted. HEENT: No change in vision or hearing. CARDIAC: No chest pain reported now. RESPIRATORY: No shortness of breath currently. GASTROINTESTINAL: No nausea or vomiting . GENITOURINARY: No dysuria, hematuria, . NEUROLOGIC: History of Parkinson's disease. PSYCHIATRIC: history of psychiatric illness. PHYSICAL EXAMINATION: VITAL SIGNS: Temperature 97.8, heart rate 81, blood pressure 93/46. GENERAL: She is a well-nourished woman, no acute distress, alert, oriented x2 to 3. Somewhat aware of her condition. HEENT: Head is normocephalic, atraumatic. Eyes anicteric. NECK: Supple, JVD 6 to 7 cm. There is no lymphadenopathy or thyromegaly. HEART: Regular, soft murmur. PMI in nondisplaced. There is no S3. LUNGS: Coarse at the bases. ABDOMEN: Distended, bowel sounds are present. There is no hepatosplenomegaly. GENITOURINARY: Intact. EXTREMITIES: Show no clubbing, cyanosis, or edema. LABORATORY DATA: ECG read by me shows sinus rhythm with some nonspecific ST-T changes. White blood cell count 7.7, hemoglobin is 10.6, platelets are 244. INR is 0.8. Sodium 143, potassium is 3.2. Her BUN is 13, creatinine 0.1. Troponin is negative 0.012. ASSESSMENT AND PLAN: 1. Syncope. Patient's syncope is more consistent with seizure-like activity versus cardiac event. T here is no ectopy on telemetry. Continue to follow for now. Will see if patient had a recent 2-D e cho. If not, will order one shortly. 2. Patient did not rule in for ischemia. 3. Hypertension. Blood pressure fairly well controlled. Continue current medical observation and care. Will continue to hydrate gently. 4. History of heart failure with diastolic dysfunction. Okay to hydrate now. Patient does not von ear to be fluid overloaded. 5. Parkinson's disease. Continue Parkinson medication and therapy as indicated. 6. History of thyroid disease. Continue to replace with levothyroxine. 7. Dyslipidemia. Continue patient on Lipitor. I would like to thank Dr. Schaffer for referring this patient for my evaluation. Dictated By: ETELVINA ENRIQUEZ MD ML/NTS Conf#: [id number] DID#: [id number] CC: MYLES SCHAFFER MD;*EndCC*
--- NOTE | 2017-02-08 20:58 | PN ---
Date/Time of Note Date/Time of Note DATE: 02/08/17 TIME: 20:57 Assessment/Plan VTE Prophylaxis VTE Prophylaxis Intervention: other Lines/Catheters [facility]from [facility]): Peripheral IV Urinary Cath still in place: No Assessment/Plan Chief Complaint/Hosp Course IMPRESSION: 1. hx seizure 2. Questionable history of UTI ,Anemia. plan antibiotic Problems: Subjective 24 Hr Interval Summary Cardiovascular: no complaints Gastrointestinal: no complaints Exam/Review of Systems Vital Signs Vitals Vital Signs Date Time Temp Pulse Resp B/P Pulse Ox O2 Delivery O2 Flow Rate FiO2 02/08/17 20:46 84 02/08/17 19:51 97.9 20 117/54 97 02/08/17 10:03 21 02/07/17 14:00 Nasal Cannula 2.0 Intake and Output 02/07/17 02/07/17 02/08/17 15:00 23:00 07:00 Intake Total 580 ml 300 ml Balance 580 ml 300 ml Exam Neck: supple Respiratory: clear to auscultation Cardiovascular: regular rate and rhythm Results Result Diagram: 02/08/17 0730 02/08/17 0730 Results 24 hrs Laboratory Tests Test 02/08/17 07:30 Alanine Aminotransferase (ALT/SGPT) 14 Albumin 2.8 L Albumin/Globulin Ratio 1.07 Alkaline Phosphatase 88 Anion Gap 12 Aspartate Amino Transf (AST/SGOT) 16 Basophils # 0.0 Basophils % 0.4 Blood Urea Nitrogen 13 Calcium Level 7.7 L Carbon Dioxide Level 25 Chloride Level 109 Creatinine 0.81 Direct Bilirubin 0.00 Eosinophils # 0.5 Eosinophils % 6.5 Globulin 2.60 Glucose Level 80 Hematocrit 35.6 L Hemoglobin 10.6 L Indirect Bilirubin 0.0 Lymphocytes # 2.6 Lymphocytes % 33.7 Mean Corpuscular Hemoglobin 29.5 Mean Corpuscular Hemoglobin Concent 29.8 L Mean Corpuscular Volume 99.2 Mean Platelet Volume 10.3 Monocytes # 1.0 H Monocytes % 12.6 H Neutrophils # 3.5 Neutrophils % 45.6 Nucleated Red Blood Cells # 0.0 Nucleated Red Blood Cells % 0.0 Platelet Count 244 # Potassium Level 3.2 L Red Blood Count 3.59 L Red Cell Distribution Width 16.0 H Sodium Level 143 Total Bilirubin 0.0 L Total Protein 5.4 L White Blood Count 7.7 Medications Medications Current Medications Sodium Chloride (NS) 1,000 ml @ 50 mls/hr Q20H IV Last administered on 12:12; Admin Dose 50 MLS/HR; Start 02/07/17 at 17:00 Acetaminophen (Tylenol Tab) 650 mg Q6H PRN PO PAIN Last administered on 21:18; Admin Dose 650 MG; Start 02/07/17 at 17:00 Atorvastatin Calcium (Lipitor) 20 mg QHS PO Last administered on 02/07/17 21: 18; Admin Dose 20 MG; Start 02/07/17 at 21:00 Benazepril HCl (Lotensin) 10 mg DAILY PO Last administered on 02/08/17 08:38; Admin Dose 10 MG; Start 02/08/17 at 09:00 Carbidopa/Levodopa (Sinemet (25/ 100)) 1 tab TID PO Last administered on 12:13; Admin Dose 1 TAB; Start 02/07/17 at 21:00 Nitroglycerin (Nitroglycerin (Sl Tab) 0.4 Mg) 1 tab [id number] PRN SL CHEST PAIN ; Start 02/07/17 at 17:00 Levetiracetam 1000 mg 1,000 mg BID PO Last administered on 02/08/17 08:38; Admin Dose 1,000 MG; Start 02/07/17 at 21:00 Cefepime HCl (Maxipime 1gm/50 ml (Pmx)) 50 ml @ 100 mls/hr DAILY IVPB Last administered on 02/08/17 08:38; Admin Dose 100 MLS/HR; Start 02/08/17 at 09:00 MYLES SCHAFFER MD Feb 08, 2017 20:58
[2017-02-08] MEDS: ATORVASTATIN 20 MG TAB PO SCH (21:42)
[2017-02-09] VITALS (10 sets, daily range): BP systolic 115–139; BP diastolic 57–84; PULSE 72–93; RESP 16–20
[2017-02-09] MEDS: LEVOTHYROXINE 125 MCG TAB PO SCH (06:45)
[2017-02-09 07:28] LABS: POTASSIUM 4.1 mmol/L (3.5-5.1)
[2017-02-09 07:31] LABS: CALCIUM 8.2 mg/dl (8.4-10.2); CREATININE 0.67 mg/dl (0.44-1.00)
[2017-02-09] MEDS: CEFEPIME 1GM/50 ML (PMX) 50 ML IVPB SCH (09:41)
[2017-02-09] MEDS: SOD CHLORIDE 0.9% 1,000 ML IV SCH (09:41)
[2017-02-09] MEDS: BENAZEPRIL 10 MG TAB PO SCH (09:42)
[2017-02-09] MEDS: CARBIDOPA/LEVODOPA (25/100) TAB PO SCH ×3 (09:42→22:29)
[2017-02-09] MEDS: LEVETIRACETAM 500 MG TAB PO SCH ×2 (09:42→21:12)
--- NOTE | 2017-02-09 16:46 | CONS ---
Date/Time of Note Date/Time of Note DATE: 02/09/17 TIME: 16:41 Assessment/Plan Assessment/Plan Chief Complaint/Hosp Course IMp: 1.Syncope-no arrythymia noted/NL EF by prior echo 2.HTN 3.Diastolic dysfunction 4.Possible seizure 5.Hypothyroid REcc: -Tele -serial ecg's -Continue benazepril -Contineu statin -Contineu keppra -Complete attila Problems: Consultation Date/Type/Reason Admit Date/Time Feb 07, 2017 at 13:03 Initial Consult Date 02/08/2017 Type of Consultation: Cardiology Reason for Consultation syncope Referring Provider: MYLES SCHAFFER MD Exam/Review of Systems Vital Signs Vitals Vital Signs Date Time Temp Pulse Resp B/P Pulse Ox O2 Delivery O2 Flow Rate FiO2 02/09/17 12:12 93 02/09/17 11:54 97.9 18 129/66 94 02/08/17 10:03 21 02/07/17 14:00 Nasal Cannula 2.0 Intake and Output 02/08/17 02/08/17 02/09/17 15:00 23:00 07:00 Intake Total 500 ml 1310 ml 200 ml Balance 500 ml 1310 ml 200 ml Exam Review of Systems: CONSTITUTIONAL: No fevers, chills. PULMONARY: No sob CARDIOVASCULAR: No chest pain/palpitations GASTROINTESTINAL: No nausea/vomiting. GENITOURINARY: No hematuria/dysuria. MUSCULOSKELETAL: No myagias/arthalgias. PSYCHIATRIC: The patient denies depression. NEUROLOGIC: No weakness Head: normocephalic ENMT: mucosa pink and moist Neck: jvd (8 cm water), supple Respiratory: diminished breath sounds (at bases/B) Cardiovascular: regular rate and rhythm Gastrointestinal: non-tender, soft Musculoskeletal: muscle tone (normal) Extremities: edema (none) Neurological: lethargic Results Result Diagram: 02/08/17 0730 02/09/17 0540 Results 24 hrs Laboratory Tests Test 02/09/17 05:40 Anion Gap 13 Blood Urea Nitrogen 10 Calcium Level 8.2 L Carbon Dioxide Level 23 Chloride Level 110 Creatinine 0.67 Glucose Level 76 Potassium Level 4.1 Sodium Level 142 Medications Medications Current Medications Sodium Chloride (NS) 1,000 ml @ 50 mls/hr Q20H IV Last administered on t 09:41; Admin Dose 50 MLS/HR; Start 3/13/17 at 17:00 Acetaminophen (Tylenol Tab) 650 mg Q6H PRN PO PAIN Last administered on 21:18; Admin Dose 650 MG; Start 02/07/17 at 17:00 Atorvastatin Calcium (Lipitor) 20 mg QHS PO Last administered on 02/08/17 21: 42; Admin Dose 20 MG; Start 02/07/17 at 21:00 Benazepril HCl (Lotensin) 10 mg DAILY PO Last administered on 02/09/17 09:42; Admin Dose 10 MG; Start 02/08/17 at 09:00 Carbidopa/Levodopa (Sinemet (25/ 100)) 1 tab TID PO Last administered on 12:47; Admin Dose 1 TAB; Start 02/07/17 at 21:00 Nitroglycerin (Nitroglycerin (Sl Tab) 0.4 Mg) 1 tab [id number] PRN SL CHEST PAIN ; Start 02/07/17 at 17:00 Levetiracetam 1000 mg 1,000 mg BID PO Last administered on 02/09/17 09:42; Admin Dose 1,000 MG; Start 02/07/17 at 21:00 Cefepime HCl (Maxipime 1gm/50 ml (Pmx)) 50 ml @ 100 mls/hr DAILY IVPB Last administered on 02/09/17 09:41; Admin Dose 100 MLS/HR; Start 02/08/17 at 09:00 KELLY DOSS 15, 2017 16:46
--- NOTE | 2017-02-09 20:03 | PN ---
Date/Time of Note Date/Time of Note DATE: 02/09/17 TIME: 20:01 Assessment/Plan VTE Prophylaxis VTE Prophylaxis Intervention: other Lines/Catheters [facility] Peripheral IV Urinary Cath still in place: No Assessment/Plan Chief Complaint/Hosp Course IMPRESSION: 1. hx seizure 2. esbl uti 3 anemia plan antibiotic Problems: Subjective 24 Hr Interval Summary Respiratory: no complaints Cardiovascular: no complaints Exam/Review of Systems Vital Signs Vitals Vital Signs Date Time Temp Pulse Resp B/P Pulse Ox O2 Delivery O2 Flow Rate FiO2 02/09/17 17:13 97.9 77 16 126/57 93 02/08/17 10:03 21 02/07/17 14:00 Nasal Cannula 2.0 Intake and Output 02/08/17 02/08/17 02/09/17 15:00 23:00 07:00 Intake Total 500 ml 1310 ml 200 ml Balance 500 ml 1310 ml 200 ml Exam Neck: supple Respiratory: clear to auscultation Cardiovascular: regular rate and rhythm Gastrointestinal: soft Musculoskeletal: nl extremities to inspection Extremities: normal pulses Results Result Diagram: 02/08/17 0730 02/09/17 0540 Results 24 hrs Laboratory Tests Test 02/09/17 05:40 02/09/17 18:50 Anion Gap 13 Blood Urea Nitrogen 10 Calcium Level 8.2 L Carbon Dioxide Level 23 Chloride Level 110 Creatinine 0.67 Glucose Level 76 Potassium Level 4.1 Sodium Level 142 Troponin I < 0.012 Medications Medications Current Medications Sodium Chloride (NS) 1,000 ml @ 50 mls/hr Q20H IV Last administered on 09:41; Admin Dose 50 MLS/HR; Start 02/07/17 at 17:00 Acetaminophen (Tylenol Tab) 650 mg Q6H PRN PO PAIN Last administered on 21:18; Admin Dose 650 MG; Start 02/07/17 at 17:00 Atorvastatin Calcium (Lipitor) 20 mg QHS PO Last administered on 02/08/17 21: 42; Admin Dose 20 MG; Start 02/07/17 at 21:00 Benazepril HCl (Lotensin) 10 mg DAILY PO Last administered on 02/09/17 09:42; Admin Dose 10 MG; Start 02/08/17 at 09:00 Carbidopa/Levodopa (Sinemet (25/ 100)) 1 tab TID PO Last administered on 12:47; Admin Dose 1 TAB; Start 02/07/17 at 21:00 Nitroglycerin (Nitroglycerin (Sl Tab) 0.4 Mg) 1 tab [id number] PRN SL CHEST PAIN ; Start 02/07/17 at 17:00 Levetiracetam 1000 mg 1,000 mg BID PO Last administered on 02/09/17 09:42; Admin Dose 1,000 MG; Start 02/07/17 at 21:00 Cefepime HCl (Maxipime 1gm/50 ml (Pmx)) 50 ml @ 100 mls/hr DAILY IVPB Last administered on 02/09/17 09:41; Admin Dose 100 MLS/HR; Start 02/08/17 at 09:00 MYLES SCHAFFER MD Feb 09, 2017 20:03
[2017-02-09] MEDS: ATORVASTATIN 20 MG TAB PO SCH (21:11)
[2017-02-10] VITALS (10 sets, daily range): BP systolic 103–158; BP diastolic 55–97; PULSE 81–87; RESP 14–19
[2017-02-10] MEDS: SOD CHLORIDE 0.9% 1,000 ML IV SCH (05:00)
[2017-02-10] MEDS: LEVOTHYROXINE 125 MCG TAB PO SCH (06:02)
[2017-02-10] MEDS: LEVETIRACETAM 500 MG TAB PO SCH (10:29)
[2017-02-10] MEDS: CARBIDOPA/LEVODOPA (25/100) TAB PO SCH ×2 (10:29→16:46)
[2017-02-10] MEDS: BENAZEPRIL 10 MG TAB PO SCH (10:29)
[2017-02-10] MEDS: CEFEPIME 1GM/50 ML (PMX) 50 ML IVPB SCH (10:30)
--- NOTE | 2017-02-10 12:12 | PDOCDIS ---
Discharge Instructions CONDITION Patient Condition: Stable HOME CARE INSTRUCTIONS: Special Diet: 2 g Na ACTIVITY: Activity Restrictions: Slowly Increase Activity FOLLOW UP/APPOINTMENTS Appointments f/y dr choudhary [address] schaffer 2 wks MYLES SCHAFFER MD Feb 10, 2017 12:12
[2017-02-10] MEDS ORDERED: BACTRIM PO (12:14)
--- NOTE | 2017-02-10 18:29 | PN ---
Date/Time of Note Date/Time of Note DATE: 02/10/17 TIME: 18:28 Assessment/Plan VTE Prophylaxis VTE Prophylaxis Intervention: other Lines/Catheters [facility] Saline Lock Urinary Cath still in place: No Assessment/Plan Chief Complaint/Hosp Course IMPRESSION: 1. hx seizure 2. esbl uti poss colonization 3 anemia plan antibiotic home Problems: Subjective 24 Hr Interval Summary Respiratory: no complaints Cardiovascular: no complaints Gastrointestinal: no complaints Genitourinary: no complaints Exam/Review of Systems Vital Signs Vitals Vital Signs Date Time Temp Pulse Resp B/P Pulse Ox O2 Delivery O2 Flow Rate FiO2 02/10/17 16:49 87 02/10/17 15:44 97.8 18 103/55 94 02/08/17 10:03 21 02/07/17 14:00 Nasal Cannula 2.0 Intake and Output 02/09/17 02/09/17 02/10/17 15:00 23:00 07:00 Intake Total 650 ml 1050 ml Balance 650 ml 1050 ml Exam Respiratory: clear to auscultation Cardiovascular: regular rate and rhythm Gastrointestinal: soft Results Result Diagram: 02/08/17 0730 02/09/17 0540 Results 24 hrs Laboratory Tests Test 02/09/17 18:50 02/10/17 00:29 Troponin I < 0.012 0.015 Medications Medications Current Medications Sodium Chloride (NS) 1,000 ml @ 50 mls/hr Q20H IV Last administered on 09:41; Admin Dose 50 MLS/HR; Start 02/07/17 at 17:00 Acetaminophen (Tylenol Tab) 650 mg Q6H PRN PO PAIN Last administered on 21:18; Admin Dose 650 MG; Start 02/07/17 at 17:00 Atorvastatin Calcium (Lipitor) 20 mg QHS PO Last administered on 02/09/17 21: 11; Admin Dose 20 MG; Start 02/07/17 at 21:00 Benazepril HCl (Lotensin) 10 mg DAILY PO Last administered on 02/10/17 10:29; Admin Dose 10 MG; Start 02/08/17 at 09:00 Carbidopa/Levodopa (Sinemet (25/ 100)) 1 tab TID PO Last administered on 16:46; Admin Dose 1 TAB; Start 02/07/17 at 21:00 Nitroglycerin (Nitroglycerin (Sl Tab) 0.4 Mg) 1 tab [id number] PRN SL CHEST PAIN ; Start 02/07/17 at 17:00 Levetiracetam 1000 mg 1,000 mg BID PO Last administered on 02/10/17 10:29; Admin Dose 1,000 MG; Start 02/07/17 at 21:00 Cefepime HCl (Maxipime 1gm/50 ml (Pmx)) 50 ml @ 100 mls/hr DAILY IVPB Last administered on 02/10/17 10:30; Admin Dose 100 MLS/HR; Start 02/08/17 at 09:00 MYLES SCHAFFER MD Feb 10, 2017 18:29
--- NOTE | 2017-02-10 19:30 | CONS ---
Date/Time of Note Date/Time of Note DATE: 02/10/17 TIME: 19:29 Assessment/Plan Assessment/Plan Chief Complaint/Hosp Course IMp: 1.Syncope-no arrythymia noted/NL EF by prior echo-negative troponin x 3/No arrythmia noted on tele/no sig changes on serial ecg assessment 2.HTN 3.Diastolic dysfunction 4.Possible seizure 5.Hypothyroid REcc: -Tele -serial ecg's -Continue benazepril -Contineu statin -Contineu keppra Problems: Consultation Date/Type/Reason Admit Date/Time Feb 07, 2017 at 13:03 Initial Consult Date 02/08/2017 Type of Consultation: Cardiology Reason for Consultation syncope Referring Provider: MYLES SCHAFFER MD Exam/Review of Systems Vital Signs Vitals Vital Signs Date Time Temp Pulse Resp B/P Pulse Ox O2 Delivery O2 Flow Rate FiO2 02/10/17 16:49 87 02/10/17 15:44 97.8 18 103/55 94 02/08/17 10:03 21 02/07/17 14:00 Nasal Cannula 2.0 Intake and Output 02/09/17 02/09/17 02/10/17 15:00 23:00 07:00 Intake Total 650 ml 1050 ml Balance 650 ml 1050 ml Exam Review of Systems: CONSTITUTIONAL: No fevers, chills. PULMONARY: No sob CARDIOVASCULAR: No chest pain/palpitations GASTROINTESTINAL: No nausea/vomiting. GENITOURINARY: No hematuria/dysuria. MUSCULOSKELETAL: No myagias/arthalgias. PSYCHIATRIC: The patient denies depression. NEUROLOGIC: lethargic Constitutional: alert Psych: no complaints Head: normocephalic ENMT: mucosa pink and moist Neck: jvd (8 cm water), supple Respiratory: clear to auscultation Cardiovascular: regular rate and rhythm Gastrointestinal: non-tender, soft Musculoskeletal: muscle tone (normal) Extremities: edema (none) Neurological: lethargic Results Result Diagram: 02/08/17 0730 02/09/17 0540 Results 24 hrs Laboratory Tests Test 02/10/17 00:29 Troponin I 0.015 KELLY DOSS Feb 10, 2017 19:30
--- NOTE | 2017-02-15 18:02 | RADRPT ---
Vent Rate: 82 bpm RR Interval: 0 msec MD Interval: 138 msec QRS Duration: 76 msec QT Interval: 378 msec QTC Interval: 441 msec P-R-T Mobile: 49 - 10 - 49 degrees Normal sinus rhythm Normal ECG Electronically Signed By: Ander Thornton [id number]
== END 2017-02-10 19:14 | disposition home or self-care (01) | DRG 312 ==
LOC: E/R 11:06 → MS4 13:03
PROVIDERS: ADMIT Internal Medicine Nephrology; ATTEND Internal Medicine Nephrology
DX: R55 Syncope and collapse (principal); I11.0 Hypertensive heart disease with heart failure; I50.9 Heart failure, unspecified; G20 Parkinson's disease; N39.0 Urinary tract infection, site not specified; E78.5 Hyperlipidemia, unspecified; E86.0 Dehydration; G40.909 Epilepsy, unspecified, not intractable, without status epilepticus; E03.9 Hypothyroidism, unspecified; D64.9 Anemia, unspecified
CPT/HCPCS: 36415; 71010; 80048; 80053; 81001; 81003; 83690; 84484; 85025; 87081; 87086; 93005; 96374; 96375; J0692; J0696; J1953; J7030

== ENCOUNTER 2017-02-22 15:37 | Emergency (ER) | payer MEDICARE, OTHER ==
[~2017-02-22] VITALS: Ht 165.1 cm; Wt 67.0 kg
[~2017-02-22 15:37] MED LIST changes: +BACTRIM PO
[2017-02-22 15:43] VITALS: Ht 165.1 cm; Wt 67.0 kg
[2017-02-22] MEDS ORDERED: SOD CHLORIDE 0.9% 500 ML IV STA (15:44)
--- NOTE | 2017-02-22 15:46 | ERD ---
ER Documentation Chief Complaint Date/Time DATE: 02/22/17 TIME: 15:46 Chief Complaint HPI HPI: Patient is an 89-year-old female with recent admission for syncope versus seizure who presents with episode of unresponsiveness while sitting in wheelchair. According to the son, the patient appeared pale. Patient spontaneously regained consciousness. Patient denies any complaints prior to or following the event. Denies weakness, lightheadedness, shortness of breath, pain, fever, vomiting or diarrhea. Additional history obtained from son. He states that for the last 3 days the patient has had intermittent vomiting after she eats. He notes that during her episode of unresponsiveness today, he checked her pulse and found to be low. He states that she was unconscious for approximately 2 minutes. He noticed that her eyes rolled back in her head during the episode. There was no seizure- like activity. Patient was admitted 3 weeks ago for similar episode. Workup was unremarkable except for mild dehydration and UTI. According to the son the patient completed a course of antibiotics, and has not had any urinary symptoms since. ROS All systems reviewed and are negative except as per history of present illness. Medications Home Meds Active Scripts Ondansetron Hcl* (Zofran*) 4 Mg Tablet, 4 MG PO Q8H Y for NAUSEA AND/OR VOMITING , #15 TAB Prov:MINDY NIELSEN MD 02/22/17 Cephalexin* (Keflex*) 500 Mg Capsule, 500 MG PO QID for 7 Days, CAP Prov:MINDY NIELSEN MD 02/22/17 Levothyroxine Sodium* (Synthroid*) 125 Mcg Tablet, 125 MCG PO BEFORE BREAKFAST for 30 Days, TAB Prov:MYLES SCHAFFER MD 08/29/16 Reported Medications Ipratropium-Albuterol (Ipratropium-Albuterol) 0.5-3 Mg/3 Ml Ampul.neb, 3 ML INHALATION Q6 Y for SHORTNESS OF BREATH, #30 VIAL 01/26/17 Benazepril Hcl* (Benazepril Hcl*) 10 Mg Tablet, 10 MG PO DAILY, #30 TAB 01/26/17 Atorvastatin Calcium* (Atorvastatin Calcium*) 20 Mg Tablet, 20 MG PO QHS, #30 TAB 01/26/17 Nitroglycerin* (Nitrostat*) 0.4 Mg Tab.subl, 0.4 MG SL Q5MIN Y for CHEST PAIN, BOTTLE 01/05/16 Levetiracetam* (Keppra*) 750 Mg Tablet, 750 MG PO BID, TAB 01/05/16 Carbidopa-Levodopa* (Sinemet*) 25-100 Mg Tab, 1 TAB PO TID, TAB 01/05/16 Acetaminophen (TYLENOL 325 MG TAB) 325 Mg Tab, 650 MG PO Q6 Y 08/09/13 Discontinued Scripts Trimethoprim-Sulfamethoxazole* (Bactrim*) 400-80 Mg Tab, 1 TAB PO DAILY, #10 TAB Prov:MYLES SCHAFFER MD 02/10/17 Allergies Allergies: Coded Allergies: No Known Allergies (Verified Allergy, Unknown, 02/22/17) PMhx/Soc Past medical history: COPD, CAD, seizure disorder, hypertension, Parkinson's disease Past surgical history: Remote history of surgery for unknown cancer Social history: Former smoker, denies current tobacco or alcohol. History of Surgery: Yes (ABDOMINAL SX D/T CA 10 YEARS AGO) Anesthesia Reaction: No Hx Neurological Disorder: Yes (SEIZURE) Hx Respiratory Disorders: Yes (COPD) Hx Cardiac Disorders: Yes (HTN, DYSLIPIDEMIA) Hx Psychiatric Problems: No Hx Miscellaneous Medical Probl: No Hx Alcohol Use: No Hx Substance Use: No Hx Tobacco Use: Yes FmHx Family History: No coronary disease, No diabetes Physical Exam Vitals Vital Signs Date Time Temp Pulse Resp B/P Pulse Ox O2 Delivery O2 Flow Rate FiO2 02/22/17 18:50 98.9 88 18 116/63 96 Room Air 02/22/17 15:43 974.1 83 18 94/54 96 Physical Exam Const: Alert, no acute distress Head: Atraumatic Eyes: Normal Conjunctiva, no pallor or icterus ENT: Normal External Ears, Nose and Mouth. Moist mucous membranes Neck: Full range of motion. No meningismus. Resp: Clear to auscultation bilaterally, no wheezes, no rales Cardio: Regular rate and rhythm, no murmurs Abd: Soft, non tender, non distended. Normal bowel sounds, no pulsatile mass Skin: No petechiae or rashes Back: No midline or flank tenderness Ext: No cyanosis, or edema Neur: Awake and alert, oriented to month, place, situation. Cranial nerves II through XII intact bilaterally, strength and sensation intact in 4 extremities. No drift or dysmetria. Psych: Normal Mood and Affect Result Diagram: 02/22/17 1555 02/22/17 1555 Results 24 hrs Laboratory Tests Test 02/22/17 15:55 02/22/17 18:55 White Blood Count 11.610^3/ul Red Blood Count 3.9610^6/ul Hemoglobin 12.0g/dl Hematocrit 38.6% Mean Corpuscular Volume 97.5fl Mean Corpuscular Hemoglobin 30.3pg Mean Corpuscular Hemoglobin Concent 31.1g/dl Red Cell Distribution Width 16.1% Platelet Count 31401^3/UL Mean Platelet Volume 10.0fl Neutrophils % 67.0% Lymphocytes % 19.2% Monocytes % 9.1% Eosinophils % 2.0% Basophils % 0.6% Nucleated Red Blood Cells % 0.0/100WBC Neutrophils # 7.810^3/ul Lymphocytes # 2.210^3/ul Monocytes # 1.110^3/ul Eosinophils # 0.210^3/ul Basophils # 0.110^3/ul Nucleated Red Blood Cells # 0.010^3/ul Sodium Level 135mmol/L Potassium Level 4.2mmol/L Chloride Level 102mmol/L Carbon Dioxide Level 24mmol/L Anion Gap 13 Blood Urea Nitrogen 19mg/dl Creatinine 1.07mg/dl Glucose Level 113mg/dl Calcium Level 8.7mg/dl Total Bilirubin 0.5mg/dl Direct Bilirubin 0.00mg/dl Indirect Bilirubin 0.5mg/dl Aspartate Amino Transf (AST/SGOT) 15IU/L Alanine Aminotransferase (ALT/SGPT) 15IU/L Alkaline Phosphatase 94IU/L Troponin I < 0.012ng/ml Total Protein 6.4g/dl Albumin 3.3g/dl Globulin 3.10g/dl Albumin/Globulin Ratio 1.06 Urine Color YELLOW Urine Clarity CLOUDY Urine pH 6.0 Urine Specific [place] 1.025 Urine Ketones 15 Urine Nitrite NEGATIVE Urine Bilirubin 1+ Urine Ictotest NEGATIVE Urine Urobilinogen 1.0 E.U./dL Urine Leukocyte Esterase TRACE Urine Microscopic RBC NONE SEEN/HPF Urine Microscopic WBC >50/HPF Urine Squamous Epithelial Cells MODERATE Urine Bacteria MODERATE Urine Hemoglobin NEGATIVE Urine Glucose NEGATIVE% Urine Total Protein TRACE Current Medications Medications (Trade) Dose Ordered Sig/Kristofer Route PRN Reason Start Time Stop Time Status Last Admin Dose Admin Sodium Chloride (NS) 500 ml @ 500 mls/hr Q1H STAT IV 02/22/17 15:44 02/22/17 16:43 DC 02/22/17 16:18 Procedures/MDM EKG read by me: Time 1516, rate 77 Rhythm: Normal sinus [place]: Normal Intervals: Normal ST-T waves: no ischemic changes Ectopy: No Q-waves: No Impression: No evidence of ischemia or arrhythmia IMPRESSION: No acute cardiopulmonary disease. Stable cardiomegaly and atherosclerotic aortic calcification MDM: Patient with syncopal episode, noted to be bradycardic during episode. Has normal EKG. Has history of multiple ER presentations with similar symptoms in the setting of UTI and dehydration. Workup today shows evidence of UTI but no dehydration. Patient tolerated a normal meal without vomiting. She had stable vital signs and no arrhythmia on the monitor during several hours of observation. She states that she feels well and according to her son is back at baseline. She will be treated with Keflex for UTI, Zofran as needed for nausea. Her care and presentation were discussed with Dr. Schaffer, primary doctor , who agrees that the patient can be safely discharged home. He states that she has had extensive syncope workup in the past including cardiology consult, and there were no concerning findings to suggest a cardiac etiology. Departure Diagnosis: Primary Impression: Syncope Syncope type: vasovagal syncope Qualified Code: R55 - Vasovagal syncope Additional Impression: UTI (urinary tract infection) Urinary tract infection type: acute cystitis Hematuria presence: without hematuria Qualified Code: N30.00 - Acute cystitis without hematuria Condition: MINDY Ross MD Feb 22, 2017 15:46
[2017-02-22 16:00] LABS: ADD SCAN DIFF NO
[2017-02-22 16:05] LABS: BASOPHIL # 0.1 10^3/ul (0.0-0.1); BASOPHILS % 0.6 % (0.0-2.0); EOSINOPHILS # 0.2 10^3/ul (0.0-0.5); HEMATOCRIT 38.6 % (37.0-47.0); LYMPHOCYTES # 2.2 10^3/ul (0.8-2.9); LYMPHOCYTES % 19.2 % (15.0-51.0); MEAN CORPUSCULAR HEMOGLOBIN 30.3 pg (29.0-33.0); MEAN CORPUSCULAR HGB CONC 31.1 g/dl (32.0-37.0); MEAN CORPUSCULAR VOLUME 97.5 fl (82.0-101.0); MONOCYTE # 1.1 10^3/ul (0.3-0.9); MONOCYTES % 9.1 % (0.0-11.0); NEUTROPHIL # 7.8 10^3/ul (1.6-7.5); PLATELET COUNT 357 10^3/UL (140-415); RED BLOOD COUNT 3.96 10^6/ul (4.20-5.40); RED CELL DISTRIBUTION WIDTH 16.1 % (11.5-14.5); WHITE BLOOD COUNT 11.6 10^3/ul (4.8-10.8)
[2017-02-22 16:21] LABS: ALBUMIN 3.3 g/dl (3.3-4.9); CHLORIDE 102 mmol/L (97-110); POTASSIUM 4.2 mmol/L (3.5-5.1); SODIUM 135 mmol/L (135-144)
[2017-02-22 16:23] LABS: BILIRUBIN,INDIRECT 0.5 mg/dl (0-1.1); BILIRUBIN,TOTAL 0.5 mg/dl (0.2-1.3); CREATININE 1.07 mg/dl (0.44-1.00)
[2017-02-22 16:24] LABS: ALANINE AMINOTRANSFERASE 15 IU/L (13-69); ALBUMIN/GLOBULIN RATIO 1.06; ALKALINE PHOSPHATASE 94 IU/L (42-121); ANION GAP 13 (8-16); ASPARTATE AMINO TRANSFERASE 15 IU/L (15-46); BLOOD UREA NITROGEN 19 mg/dl (7-20); CALCIUM 8.7 mg/dl (8.4-10.2); CARBON DIOXIDE 24 mmol/L (21-31); GLUCOSE 113 mg/dl (70-220); TOTAL PROTEIN 6.4 g/dl (6.1-8.1)
[2017-02-22 16:38] LABS: TROPONIN-I < 0.012 ng/ml (0.00-0.12)
--- NOTE | 2017-02-22 17:06 | RADRPT ---
PROCEDURE: Chest x-ray CLINICAL INDICATION: Altered level of consciousness TECHNIQUE: Chest single view COMPARISON: 02/07/2017 FINDINGS: There is stable cardiomegaly and atherosclerotic aortic calcification. Pulmonary vessels are normal in caliber. There is mild left basilar atelectasis. Lungs otherwise clear. Costophrenic angles a re sharp. Bony thorax is unremarkable IMPRESSION: No acute cardiopulmonary disease. Stable cardiomegaly and atherosclerotic aortic calcification RPTAT: HH .Choco Hill MD, Date Time Electronically viewed and signed by .Choco Hill MD, on 02/22/2017 17:06 .W/
[2017-02-22 19:11] LABS: ADD UMIC YES; URINE BILIRUBIN (Dip) 1+ (NEGATIVE); URINE BLOOD (Dip) NEGATIVE (NEGATIVE); URINE COLOR YELLOW (YELLOW); URINE GLUCOSE (Dip) NEGATIVE (NEGATIVE); URINE KETONES (Dip) 15 (NEGATIVE); URINE LEUKOCYTE ESTERASE (Dip) TRACE (NEGATIVE); URINE NITRITE (Dip) NEGATIVE (NEGATIVE); URINE TOTAL PROTEIN (Dip) TRACE (NEGATIVE); URINE UROBILINOGEN (Dip) 1.0 E.U./dL (0.1-1.0)
[2017-02-22 19:24] LABS: ICTOTEST NEGATIVE (NEGATIVE); SQUAMOUS EPITHELIAL CELL,UR MODERATE; URINE RBCS NONE SEEN /HPF (0)
[2017-02-22 19:25] LABS: BACTERIA,URINE MODERATE
[2017-02-22] MEDS ORDERED: ONDA4TAB8 PO (19:42)
[2017-02-22] MEDS ORDERED: CEPH-443 PO (19:42)
[2017-02-22 20:18] VITALS: BP 109/61; PULSE 79; RESP 18; TEMP 98.8
== END 2017-02-22 20:20 | disposition home or self-care (01) ==
LOC: E/R 15:37
DX: R55 Syncope and collapse (principal); N30.00 Acute cystitis without hematuria; R11.10 Vomiting, unspecified; J44.9 Chronic obstructive pulmonary disease, unspecified; I25.10 Atherosclerotic heart disease of native coronary artery without angina pectoris; I10 Essential (primary) hypertension; E03.9 Hypothyroidism, unspecified; Z87.891 Personal history of nicotine dependence
CPT/HCPCS: 36415; 71010; 80053; 81001; 84484; 85025; 87086; 99284; J7040; P9612; 81003

== ENCOUNTER 2017-04-15 23:31 | Inpatient (IN) | payer MEDICARE, OTHER ==
[~2017-04-15] VITALS: Ht 162.6 cm; Wt 63.0 kg
[~2017-04-15 23:31] MED LIST changes: -BACTRIM PO; +CEPH-443 PO; +ONDA4TAB8 PO
--- NOTE | 2017-04-15 23:55 | ERA ---
ER Documentation Chief Complaint Date/Time DATE: 04/15/17 TIME: 23:55 Chief Complaint BP 75/47, c/o near syncope outside movie theater HPI The patient is 89-year-old female, presenting to the ER because of low blood pressure outside the movie theater. She denies any symptom, however the son called 911 because she complains of near fainting. However when I talked to the son who stated that the patient did pass out for a minute. She had similar symptoms previously. She however denies any symptom to the EMS or in the ER. She is hungry and wants to eat. She denies fever, chills, neck pain, chest pain , abdominal pain, dysuria, diarrhea. She is wheelchair-bound. Her blood pressure was 75/47 and went up to 111/54 after receiving normal saline 250m l IV given by the EMS Past medical history: Hypertension, dyslipidemia, epilepsy, Parkinson disease, hypothyroidism Past surgical history: Abdominal surgery, the details unclear ROS All systems reviewed and are negative except as per history of present illness. Medications Home Meds Active Scripts Cephalexin* (Keflex*) 500 Mg Capsule, 500 MG PO QID for 7 Days, CAP Prov:MINDY NIELSEN MD 02/22/17 Levothyroxine Sodium* (Synthroid*) 125 Mcg Tablet, 125 MCG PO BEFORE BREAKFAST for 30 Days, TAB Prov:MYLES SCHAFFER MD 08/29/16 Reported Medications Metoprolol Succinate* (Toprol XL*) 25 Mg Tab.sr.24h, 25 MG PO DAILY, #30 TAB 04/16/17 Sertraline Hcl* (Sertraline Hcl*) 25 Mg Tablet, 25 MG PO DAILY, #30 TAB 04/16/17 Isosorbide Mononitrate* (Isosorbide Mononitrate*) 60 Mg Tab.er.24h, 60 MG PO DAILY, TAB 04/16/17 Primidone* (Mysoline*) 50 Mg Tablet, 50 MG PO DAILY, TAB 04/16/17 Pramipexole* (Pramipexole*) 0.5 Mg Tablet, 0.5 MG PO TID, TAB 04/16/17 Benazepril Hcl* (Benazepril Hcl*) 10 Mg Tablet, 10 MG PO DAILY, #30 TAB 01/26/17 Atorvastatin Calcium* (Atorvastatin Calcium*) 20 Mg Tablet, 20 MG PO QHS, #30 TAB 01/26/17 Levetiracetam* (Keppra*) 750 Mg Tablet, 750 MG PO BID, TAB 01/05/16 Carbidopa-Levodopa* (Sinemet*) 25-100 Mg Tab, 1 TAB PO TID, TAB 01/05/16 Acetaminophen (TYLENOL 325 MG TAB) 325 Mg Tab, 650 MG PO Q6 Y 08/09/13 Discontinued Reported Medications Ipratropium-Albuterol (Ipratropium-Albuterol) 0.5-3 Mg/3 Ml Ampul.neb, 3 ML INHALATION Q6 Y for SHORTNESS OF BREATH, #30 VIAL 01/26/17 Nitroglycerin* (Nitrostat*) 0.4 Mg Tab.subl, 0.4 MG SL Q5MIN Y for CHEST PAIN, BOTTLE 01/05/16 Discontinued Scripts Ondansetron Hcl* (Zofran*) 4 Mg Tablet, 4 MG PO Q8H Y for NAUSEA AND/OR VOMITING , #15 TAB Prov:MINDY NIELSEN MD 02/22/17 Allergies Allergies: Coded Allergies: No Known Allergies (Unverified Allergy, Unknown, 04/16/17) PMhx/Soc History of Surgery: Yes (ABDOMINAL SX R/T CA 10 YEARS AGO) Anesthesia Reaction: No Hx Neurological Disorder: Yes (SEIZURE) Hx Respiratory Disorders: Yes (COPD) Hx Cardiac Disorders: Yes (HTN, DYSLIPIDEMIA) Hx Psychiatric Problems: No Hx Miscellaneous Medical Probl: No Hx Alcohol Use: No Hx Substance Use: No Hx Tobacco Use: Yes (quit) Smoking Status: Former smoker Physical Exam Vitals Vital Signs Date Time Temp Pulse Resp B/P Pulse Ox O2 Delivery O2 Flow Rate FiO2 04/16/17 04:05 78 18 98/41 97 Room Air 04/16/17 02:16 75 18 117/59 99 Room Air 04/16/17 00:41 73 20 108/40 100 Room Air 04/16/17 00:21 76 17 98/65 100 Room Air 04/16/17 00:00 78 18 98/65 93 Room Air 04/15/17 23:49 70 21 111/54 96 Room Air 04/15/17 23:44 98.9 72 18 111/54 96 Physical Exam Const: No acute distress. Dehydrated Head: Atraumatic. Eyes: Normal Conjunctiva. Bilateral upper and lower eyelids erythematous ENT: Normal External Ears, Nose and Mouth. Neck: Full range of motion. No meningismus. Resp: Clear to auscultation bilaterally. Cardio: Regular rate and rhythm, no murmurs. Abd: Soft, non distended, normal bowel sounds, non tender. Skin: No petechiae or rashes. Back: No midline or flank tenderness. Ext: No cyanosis, or edema. Neur: Awake and alert. No focal deficit Psych: Normal Mood and Affect. Result Diagram: 04/16/17 0010 04/16/17 0010 Results 24 hrs Laboratory Tests Test 04/16/17 00:10 04/16/17 00:30 04/16/17 03:40 White Blood Count 10.010^3/ul Red Blood Count 3.7710^6/ul Hemoglobin 11.2g/dl Hematocrit 37.5% Mean Corpuscular Volume 99.5fl Mean Corpuscular Hemoglobin 29.7pg Mean Corpuscular Hemoglobin Concent 29.9g/dl Red Cell Distribution Width 16.4% Platelet Count 34159^3/UL Mean Platelet Volume 10.2fl Neutrophils % 63.6% Lymphocytes % 23.0% Monocytes % 9.3% Eosinophils % 3.1% Basophils % 0.3% Nucleated Red Blood Cells % 0.0/100WBC Neutrophils # 6.410^3/ul Lymphocytes # 2.310^3/ul Monocytes # 0.910^3/ul Eosinophils # 0.310^3/ul Basophils # 0.010^3/ul Nucleated Red Blood Cells # 0.010^3/ul Prothrombin Time 12.8Sec Prothrombin Time Ratio 1.0 INR International Normalized Ratio 0.96 Activated Partial Thromboplast Time 29.0Sec Sodium Level 138mmol/L Potassium Level 4.3mmol/L Chloride Level 109mmol/L Carbon Dioxide Level 25mmol/L Anion Gap 8 Blood Urea Nitrogen 16mg/dl Creatinine 0.81mg/dl Glucose Level 83mg/dl Lactic Acid Level 1.8mmol/L 1.6mmol/L Calcium Level 8.3mg/dl Total Bilirubin 0.0mg/dl Direct Bilirubin 0.00mg/dl Indirect Bilirubin 0.0mg/dl Aspartate Amino Transf (AST/SGOT) 26IU/L Alanine Aminotransferase (ALT/SGPT) 18IU/L Alkaline Phosphatase 97IU/L Troponin I < 0.012ng/ml Total Protein 5.8g/dl Albumin 3.0g/dl Globulin 2.80g/dl Albumin/Globulin Ratio 1.07 Urine Color YELLOW Urine Clarity CLOUDY Urine pH 7.0 Urine Specific [place] 1.015 Urine Ketones TRACE Urine Nitrite POSITIVE Urine Bilirubin NEGATIVE Urine Urobilinogen 0.2 E.U./dL Urine Leukocyte Esterase 3+ Urine Microscopic RBC 5-10/HPF Urine Microscopic WBC >200/HPF Urine Squamous Epithelial Cells RARE Urine Amorphous Urates FEW Urine Bacteria MODERATE Urine Hemoglobin 1+ Urine Glucose NEGATIVE% Urine Total Protein 1+ Current Medications Medications (Trade) Dose Ordered Sig/Kristofer Route PRN Reason Start Time Stop Time Status Last Admin Dose Admin Sodium Chloride 2,070 ml @ 2,070 mls/hr BOLUS X1 ONCE IV 04/16/17 00:30 04/16/17 01:29 DC 04/16/17 00:18 Ceftriaxone Sodium 50 ml @ 100 mls/hr ONCE ONCE IVPB 04/16/17 02:00 04/16/17 02:29 DC 04/16/17 01:53 Azithromycin (Zithromax 500mg/ NS (Pmx)) 250 ml @ 250 mls/hr ONCE ONCE IVPB 04/16/17 02:00 04/16/17 02:59 DC 04/16/17 02:22 Procedures/MDM EKG: Read by emergency physician Rate/Rhythm: Normal Sinus Rhythm 65 beats/min QRS, ST, T-waves: No ST elevation, no T inversion, artifacts Impression: Otherwise normal EKG [place] [address] Radiology Main Line: [phone] DIAGNOSTIC IMAGING REPORT Patient: DAVID BLACK : 1925 Age: 89 Sex: F MR #: [id number] DOS: 04/16/17 0134 Ordering MD: WALE COOPER MD Location: E/R Room/Bed: PROCEDURE: Noncontrast CT Head. CLINICAL INDICATION: Syncope. TECHNIQUE: Noncontrast CT of the head was obtained. The administered radiation dose was CTDI vol = 45 mGy, DLP = 630 mGy-cm. COMPARISON: 01/26/2017 FINDINGS: The ventricles and cortical sulci are moderately enlarged. There is moderate decreased attenuation within the periventricular and subcortical white matter compatible with chronic microvascular changes. A chronic right frontal infarct is again noted. There are no definite changes compared to the prior exam. There is no acute intracranial hemorrhage or extra- axial fluid collection. There is no mass effect. No midline shift is identified. There is no loss of bright-white differentiation to suggest acute infarction. The orbits are within normal limits. The paranasal sinuses are well aerated. No destructive osseous lesion is identified. IMPRESSION: No acute findings. Moderate diffuse parenchymal volume loss and chronic microvascular changes. Chronic right frontal infarct. RPTAT: HIKT .Srinivas Zamorano MD, Date Time Electronically viewed and signed by .Srinivas Zamorano MD, MD on 04/16/2017 02:55 .T/ CC: WALE COOPER MD [place] [address] Radiology Main Line: [phone] DIAGNOSTIC IMAGING REPORT Patient: DAVID BLACK : 1925 Age: 89 Sex: F MR #: [id number] DOS: 04/16/17 0000 Ordering MD: WALE COOPER MD Location: E/R Room/Bed: PROCEDURE: XR Chest. CLINICAL INDICATION: Shortness of breath. TECHNIQUE: AP Portable chest. COMPARISON: 02/22/2017 FINDINGS: There is mild cardiomegaly. There is mild hazy opacity at the left lung base. The osseous structures are unremarkable. IMPRESSION: Mild hazy opacity at the left lung base likely due to trace effusion and atelectasis although mild pneumonitis would not be excluded. RPTAT: HIKT .Srinivas Zamorano MD, MD Date Time Electronically viewed and signed by .Srinivas Zamorano MD, MD on 04/16/2017 01:17 .T/ CC: WALE COOPER MD MEDICAL MAKING DECISION: The patient is a 89-year-old female, presenting with acute syncope, acute pneumonia, acute bilateral blepharitis. She was hydrated with normal saline 30 mL/kg IV, Rocephin 1 g IV, Zithromax 500 mg IV with good response. The differential diagnoses for acute syncope considered include but are not limited to bradyarrhythmia, tachyarrhythmias, aortic outflow obstruction, neurogenic including subarachnoid hemorrhage, orthostatic hypotension and all of its causes, hypoglycemia, dysautonomia, medications. Departure Diagnosis: Primary Impression: Syncope Additional Impressions: Pneumonia Blepharitis of both eyes Anemia Condition: Stable Comments We were unable to contact her physician Dr. Schaffer. I have tried to call him for more than 2 hours; therefore the person would be admitted to the hospitalist I discussed the findings with the patient. I discussed the patient with the on- call hospitalist Dr. Reynoso who was made aware of the lab, the treatment, the patient condition. The patient is admitted to Tel at 5:05 AM WALE COOPER MD April 15, 2017 23:55
[2017-04-16] VITALS (12 sets, daily range): BP systolic 111–138; BP diastolic 55–71; PULSE 58–75; RESP 15–19; TEMP 97.9; Ht 162.6 cm; Wt 63.0 kg
[2017-04-16] MEDS ORDERED: SOD CHLORIDE 0.9% 2,070 ML IV ONE (00:30)
[2017-04-16 01:07] LABS: ADD SCAN DIFF NO
[2017-04-16 01:11] LABS: ADD UMIC YES; URINE BILIRUBIN (Dip) NEGATIVE (NEGATIVE); URINE BLOOD (Dip) 1+ (NEGATIVE); URINE COLOR YELLOW (YELLOW); URINE GLUCOSE (Dip) NEGATIVE (NEGATIVE); URINE KETONES (Dip) TRACE (NEGATIVE); URINE LEUKOCYTE ESTERASE (Dip) 3+ (NEGATIVE); URINE NITRITE (Dip) POSITIVE (NEGATIVE); URINE TOTAL PROTEIN (Dip) 1+ (NEGATIVE); URINE UROBILINOGEN (Dip) 0.2 E.U./dL (0.1-1.0)
[2017-04-16 01:11] LABS: BASOPHILS % 0.3 % (0.0-2.0); EOSINOPHILS # 0.3 10^3/ul (0.0-0.5); EOSINOPHILS % 3.1 % (0.0-7.0); HEMATOCRIT 37.5 % (37.0-47.0); HEMOGLOBIN 11.2 g/dl (12.0-16.0); LYMPHOCYTES # 2.3 10^3/ul (0.8-2.9); MEAN CORPUSCULAR HEMOGLOBIN 29.7 pg (29.0-33.0); MEAN CORPUSCULAR HGB CONC 29.9 g/dl (32.0-37.0); MEAN CORPUSCULAR VOLUME 99.5 fl (82.0-101.0); MEAN PLATELET VOLUME 10.2 fl (7.4-10.4); MONOCYTE # 0.9 10^3/ul (0.3-0.9); MONOCYTES % 9.3 % (0.0-11.0); NEUTROPHIL # 6.4 10^3/ul (1.6-7.5); NEUTROPHILS % 63.6 % (39.0-77.0); PLATELET COUNT 234 10^3/UL (140-415); RED BLOOD COUNT 3.77 10^6/ul (4.20-5.40); RED CELL DISTRIBUTION WIDTH 16.4 % (11.5-14.5)
--- NOTE | 2017-04-16 01:18 | RADRPT ---
PROCEDURE: XR Chest. CLINICAL INDICATION: Shortness of breath. TECHNIQUE: AP Portable chest. COMPARISON: 02/22/2017 FINDINGS: There is mild cardiomegaly. There is mild hazy opacity at the left lung base. The osseous structur es are unremarkable. IMPRESSION: Mild hazy opacity at the left lung base likely due to trace effusion and atelectasis although mild p neumonitis would not be excluded. RPTAT: HIKT .Srinivas Zamorano MD, MD Date Time Electronically viewed and signed by .Srinivas Zamorano MD, MD on 04/16/2017 01:17 .T/
[2017-04-16 01:30] LABS: INR 0.96; PROTIME 12.8 Sec (12.2-14.2)
[2017-04-16 01:38] LABS: BACTERIA,URINE MODERATE; SQUAMOUS EPITHELIAL CELL,UR RARE
[2017-04-16] MEDS ORDERED: SERT25TA83 PO (01:59)
[2017-04-16] MEDS ORDERED: PRAM0.5T PO (01:59)
[2017-04-16] MEDS ORDERED: PRIM50TA38 PO (01:59)
[2017-04-16] MEDS ORDERED: ISOS60TA PO (01:59)
[2017-04-16] MEDS ORDERED: METO25TA7 PO (01:59)
[2017-04-16] MEDS ORDERED: AZITHROMYCIN 500MG/NS (PMX) 250 ML IVPB ONE (02:00)
[2017-04-16] MEDS ORDERED: CEFTRIAXONE 1 GM/50 ML (PMX) 50 ML IVPB ONE (02:00)
[2017-04-16 02:21] LABS: ALANINE AMINOTRANSFERASE 18 IU/L (13-69); ALBUMIN/GLOBULIN RATIO 1.07; ALKALINE PHOSPHATASE 97 IU/L (42-121); ANION GAP 8 (8-16); ASPARTATE AMINO TRANSFERASE 26 IU/L (15-46); BLOOD UREA NITROGEN 16 mg/dl (7-20); CALCIUM 8.3 mg/dl (8.4-10.2); CARBON DIOXIDE 25 mmol/L (21-31); CHLORIDE 109 mmol/L (97-110); CREATININE 0.81 mg/dl (0.44-1.00); GLUCOSE 83 mg/dl (70-220); POTASSIUM 4.3 mmol/L (3.5-5.1); SODIUM 138 mmol/L (135-144); TOTAL PROTEIN 5.8 g/dl (6.1-8.1)
[2017-04-16 02:34] LABS: TROPONIN-I < 0.012 ng/ml (0.00-0.12)
--- NOTE | 2017-04-16 02:55 | RADRPT ---
PROCEDURE: Noncontrast CT Head. CLINICAL INDICATION: Syncope. TECHNIQUE: Noncontrast CT of the head was obtained. The administered radiation dose was CTDI vol = 45 mGy, DLP = 630 mGy-cm. COMPARISON: 01/26/2017 FINDINGS: The ventricles and cortical sulci are moderately enlarged. There is moderate decreased attenuation within the periventricular and subcortical white matter compatible with chronic microvascular change s. A chronic right frontal infarct is again noted. There are no definite changes compared to the prio r exam. There is no acute intracranial hemorrhage or extra-axial fluid collection. There is no mass effect. No midline shift is identified. There is no loss of bright-white differentiation to suggest ac chenega infarction. The orbits are within normal limits. The paranasal sinuses are well aerated. No destructive osseous lesion is identified. IMPRESSION: No acute findings. Moderate diffuse parenchymal volume loss and chronic microvascular changes. 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 RPTAT: HIKT .Srinivas Zamorano MD, MD Date Time Electronically viewed and signed by .Srinivas Zamorano MD, MD on 04/16/2017 02:55 .T/
[2017-04-16] MEDS ORDERED: NACL 0.9% 3 ML SYG IV SCH (06:30)
[2017-04-16] MEDS ORDERED: ACETAMINOPHEN 325 MG TAB PO PRN (06:30)
[2017-04-16] MEDS ORDERED: ONDANSETRON 4 MG INJ IV PRN (06:30)
[2017-04-16] MEDS: CEFTRIAXONE 1 GM/50 ML (PMX) 50 ML IVPB SCH (06:52)
[2017-04-16] MEDS: SOD CHLORIDE 0.9% 1,000 ML IV SCH (06:52)
[2017-04-16] MEDS: LEVOTHYROXINE 125 MCG TAB PO SCH (08:20)
[2017-04-16] MEDS: SERTRALINE 50 MG TAB PO SCH (08:20)
[2017-04-16] MEDS: CARBIDOPA/LEVODOPA (25/100) TAB PO SCH ×3 (08:20→21:08)
[2017-04-16] MEDS: FAMOTIDINE 20 MG INJ IV SCH (08:20)
[2017-04-16] MEDS: PRAMIPEXOLE 0.25 MG TAB PO SCH ×3 (08:21→21:08)
[2017-04-16] MEDS: LEVETIRACETAM 750 MG TAB PO SCH ×2 (08:21→21:08)
[2017-04-16] MEDS: BENAZEPRIL 10 MG TAB PO SCH (08:22)
[2017-04-16] MEDS ORDERED: METOPROLOL (XL) 25 MG TAB PO SCH (09:00)
[2017-04-16] MEDS ORDERED: ISOSORBIDE MONONITRATE(SR)60 MG TAB PO SCH (09:00)
[2017-04-16] MEDS: PRIMIDONE 50 MG TAB PO SCH (09:07)
--- NOTE | 2017-04-16 13:31 | HP ---
Date/Time of Note Date/Time of Note DATE: 04/16/17 TIME: 13:23 Assessment/Plan VTE Prophylaxis VTE Prophylaxis Intervention: SCD's Lines/Catheters IV [facility]from [facility] [place] [facility] Urinary Cath still in place: No Assessment/Plan Chief Complaint/Hosp Course 1. Syncope episode 2. Hypertension 3. Hyperlipidemia 4. Hypothyroidism 5. Ct scan showed changes in right side of the brain as a Chronic right frontal infarct. 6. Parkinson disease 4. Hs seizure 5. Hs abdominal surgery 6. Anemia 7. Diarrhea Problems: Assessment/Plan 1. telemetry service 2. Rectal tube for diarrhea. 3. Fall prevention 4. US carotids HPI/ROS Admit Date/Time Admit Date/Time April 16, 2017 at 05:02 Hx of Present Illness 89-year-old female,was brought to Er by paramedics because of low blood pressure outside the movie theater. Her son called 911, he reported her fainting. Son reported similar episode previously. Pt is wheelchair-bound. Admitted to telemetry service for monitoring ROS very poor historian PMH/Family/Social Past Medical History Past medical history: Hypertension, dyslipidemia, epilepsy, Parkinson disease, Medical History: hypothyroid Past Surgical History Past Surgical Hx: other (abdominal surgeries) Family History Significant Family History: hypertension, seizures, vascular disease, other ( unable to obtain) Social History Alcohol Use: none Smoking Status: Former smoker Drug Use: none Exam/Review of Systems Vital Signs Vitals Vital Signs Date Time Temp Pulse Resp B/P Pulse Ox O2 Delivery O2 Flow Rate FiO2 04/16/17 12:13 74 04/16/17 11:41 97.9 18 123/55 96 04/16/17 06:15 Room Air Exam Constitutional: alert, oriented (name) Psych: nl mood/affect Head: normocephalic ENMT: nl external ears & nose Neck: supple Respiratory: clear to auscultation Cardiovascular: regular rate and rhythm Gastrointestinal: other (diarrhea), soft Genitourinary - Female: nl external genitalia Musculoskeletal: range of motion (decreased) Extremities: normal pulses Neurological: other (does not follow) Skin: other (decreased turgor) Labs Result Diagram: 04/16/17 0010 04/16/17 0010 Medications Medications Current Medications Acetaminophen (Tylenol Tab) 650 mg Q6 PRN PO PAIN; Start 04/16/17 at 06:30 Atorvastatin Calcium (Lipitor) 20 mg QHS PO ; Start 04/16/17 at 21:00 Benazepril HCl (Lotensin) 10 mg DAILY PO Last administered on 04/16/17 08:22; Admin Dose 10 MG; Start 04/16/17 at 09:00 Carbidopa/Levodopa (Sinemet (25/ 100)) 1 tab TID PO Last administered on 08:20; Admin Dose 1 TAB; Start 04/16/17 at 09:00 Isosorbide Mononitrate (Imdur) 60 mg DAILY PO Last administered on 04/16/17 08 :22; Admin Dose 60 MG; Start 04/16/17 at 09:00 Levetiracetam (Keppra) 750 mg BID PO Last administered on 04/16/17 08:21; Admin Dose 750 MG; Start 04/16/17 at 09:00 Metoprolol Succinate (Toprol Xl) 25 mg DAILY PO Last administered on 04/16/17 08:22; Admin Dose 25 MG; Start 04/16/17 at 09:00 Pramipexole (Mirapex) 0.5 mg TID PO Last administered on 04/16/17 08:21; Admin Dose 0.5 MG; Start 04/16/17 at 09:00 Primidone (Mysoline) 50 mg DAILY PO Last administered on 04/16/17 09:07; Admin Dose 50 MG; Start 04/16/17 at 09:00 Sertraline HCl 25 mg 25 mg DAILY PO Last administered on 04/16/17 08:20; Admin Dose 25 MG; Start 04/16/17 at 09:00 Sodium Chloride (NS) 1,000 ml @ 50 mls/hr Q20H IV Last administered on 06:52; Admin Dose 50 MLS/HR; Start 04/16/17 at 06:21 Ondansetron HCl (Zofran Inj) 4 mg Q6H PRN IV NAUSEA AND/OR VOMITING; Start at 06:30 Famotidine 20 mg 20 mg DAILY IV Last administered on 04/16/17 08:20; Admin Dose 20 MG; Start 04/16/17 at 09:00 Ceftriaxone Sodium (Rocephin) 50 ml @ 100 mls/hr Q24H IVPB Last administered on 04/16/17t 06:52; Admin Dose 100 MLS/HR; Start 04/16/17 at 06:30 CHRISTY SANCHEZ April 16, 2017 13:31
[2017-04-16] MEDS: NYSTATIN 30 GM POWDER BTL TOP SCH ×2 (15:11→21:08)
--- NOTE | 2017-04-16 17:59 | CONS ---
DATE OF ADMISSION: 04/16/2017 DATE OF CONSULTATION: 04/16/2017 REASON FOR CONSULTATION: Syncope. HISTORY OF PRESENT ILLNESS: Thank you, Dr. Lovett, for cardiology consultation. The patient is an [age]-year-old female who had an episode of syncope while she was watching a movie. She denies any ches t pain, shortness of breath, dizziness, or palpitation. She denies any headache or blurry vision. Denies nausea or vomiting. Denies fever, chills, or rigors. PAST MEDICAL HISTORY: Significant for: 1. Hypertension. 2. Hyperlipidemia. 3. Hypothyroidism. 4. Parkinson's disease. 5. Seizures. 6. Anemia. SOCIAL HISTORY: Denies any smoking, alcohol, or recreational drugs. ALLERGIES: NONE. CURRENT MEDICATIONS: Include: 1. Keppra. 2. Synthroid. 3. Lotensin. 4. Imdur. 5. Metoprolol. 6. Primidone. 7. Zoloft. 8. Pepcid. 9. Ceftriaxone. 10. Lipitor. 11. Sinemet. 12. Mirapex. REVIEW OF SYSTEMS: Unremarkable except that mentioned in the HPI. PHYSICAL EXAMINATION: VITAL SIGNS: Temperature 98, heart rate of 62, blood pressure 119/58 mmHg, breathing at 18 and satu rating 96%. GENERAL: The patient is awake, alert, oriented, in no apparent distress. NECK: No JVD or carotid bruit. CARDIOVASCULAR: Regular rate and rhythm, no murmur, rub or gallop. LUNGS: Clear to auscultation. ABDOMEN: Soft. Bowel sounds are present. There is no organomegaly. EXTREMITIES: No pedal edema. Pedal pulses are felt bilaterally. DIAGNOSTIC DATA: Review of 12-lead EKG shows normal sinus rhythm with a ventricular rate of 65 beat s per minute, normal TN, normal QRS and normal QT intervals with nonspecific ST-T wave changes. Camelia st x-ray shows some mild cardiomegaly with opacity at the left lung base. LABORATORY DATA: WBC 10, hemoglobin 11.2, hematocrit 37.5 with platelets of 234. Sodium 138, potas sium 4.3, chloride 109, CO2 of 25, BUN 16, creatinine 0.81 ASSESSMENT AND PLAN: An 89-year-old female with: 1. Syncope. 2. Hypertension. 3. Dyslipidemia. 4. Parkinson's disease. 5. Anemia. 6. Hypothyroidism. 7. Seizures. 8. Pneumonia. 9. Cardiomegaly. RECOMMENDATIONS: 1. Trend troponin, BNP, TSH, lipid panel. 2. Echocardiogram to assess for left ventricular outflow obstruction and to rule out for pulmonary hypertension. 3. Discontinue metoprolol. 4. Continue benazepril. 5. Continue Keppra. 6. Discontinue Imdur. 7. Continue Lipitor. 8. Continue ceftriaxone. 9. Recommend orthostatic x1. 10. Further recommendations after review of the echocardiogram. Dictated By: NAYLA JUAREZ MD SR/NTS Conf#: [id number] DID#: [id number]
--- NOTE | 2017-04-16 19:58 | RADRPT ---
PROCEDURE: US Carotids. CLINICAL INDICATION: Atherosclerosis TECHNIQUE: Multiple sonographic of the carotid arteries were obtained utilizing bright scale imaging . Color and Doppler imaging was performed. The images were reviewed on a PACS workstation. COMPARISON: No prior studies are available for comparison. FINDINGS: LocationRightLeft CCA64 cm/sec74 cm/sec Prox ICA39 cm/sec69 cm/sec Mid ICA88 cm/sec95 cm/sec Dist ICA54 cm/mfn003 cm/sec ECA42 cm/sec71 cm/sec ICA/CCA1.41.4 Antegrade flow is seen within the vertebral arteries bilaterally. Mild calcific plaque is seen in th e bilateral common carotid arteries and bilateral carotid bulbs. No hemodynamically significant ira nosis or occlusion is identified. IMPRESSION: 1. No evidence for hemodynamically significant stenosis or occlusion. 2. Antegrade flow seen within the vertebral arteries bilaterally. Validated velocity measurements with angiographic measurements, velocity criteria are extrapolated f rom diameter data as defined by the Society of Radiologists in Ultrasound Consensus Conference (Radi ology 2003; 229; 340-346). This study does indirectly reference the measurement of the distal ICA d iameter as the denominator for stenosis measurement. RPTAT: QQ .López Causey MD, MD Date Time Electronically viewed and signed by .López Causey MD, on 04/16/2017 19:58 .R/
[2017-04-16] MEDS: ATORVASTATIN 20 MG TAB PO SCH (21:08)
[2017-04-17] VITALS (11 sets, daily range): BP systolic 103–129; BP diastolic 56–70; PULSE 54–75; RESP 15–18
[2017-04-17] MEDS: SOD CHLORIDE 0.9% 1,000 ML IV SCH ×2 (05:13→22:21)
[2017-04-17] MEDS: CEFTRIAXONE 1 GM/50 ML (PMX) 50 ML IVPB SCH (05:13)
[2017-04-17 06:28] LABS: ADD SCAN DIFF NO
[2017-04-17 06:49] LABS: ALBUMIN 2.5 g/dl (3.3-4.9); ALBUMIN/GLOBULIN RATIO 1.13; CALCIUM 8.3 mg/dl (8.4-10.2); CREATININE 0.8 mg/dl (0.44-1.00); POTASSIUM 4.4 mmol/L (3.5-5.1); TOTAL PROTEIN 4.7 g/dl (6.1-8.1)
[2017-04-17 07:11] LABS: BASOPHILS % 0.5 % (0.0-2.0); EOSINOPHILS # 0.3 10^3/ul (0.0-0.5); HEMATOCRIT 34.3 % (37.0-47.0); HEMOGLOBIN 10.2 g/dl (12.0-16.0); LYMPHOCYTES # 2.9 10^3/ul (0.8-2.9); LYMPHOCYTES % 46.4 % (15.0-51.0); MEAN CORPUSCULAR HEMOGLOBIN 29.7 pg (29.0-33.0); MEAN CORPUSCULAR HGB CONC 29.7 g/dl (32.0-37.0); MEAN CORPUSCULAR VOLUME 99.7 fl (82.0-101.0); MEAN PLATELET VOLUME 10.5 fl (7.4-10.4); MONOCYTE # 0.6 10^3/ul (0.3-0.9); MONOCYTES % 9.8 % (0.0-11.0); NEUTROPHIL # 2.3 10^3/ul (1.6-7.5); NEUTROPHILS % 37.5 % (39.0-77.0); PLATELET COUNT 181 10^3/UL (140-415); RED BLOOD COUNT 3.44 10^6/ul (4.20-5.40); RED CELL DISTRIBUTION WIDTH 16.4 % (11.5-14.5); WHITE BLOOD COUNT 6.1 10^3/ul (4.8-10.8)
[2017-04-17] MEDS: LEVOTHYROXINE 125 MCG TAB PO SCH (07:11)
[2017-04-17] MEDS: PRAMIPEXOLE 0.25 MG TAB PO SCH ×3 (08:19→21:32)
[2017-04-17] MEDS: PRIMIDONE 50 MG TAB PO SCH (08:20)
[2017-04-17] MEDS: LEVETIRACETAM 750 MG TAB PO SCH ×2 (08:20→21:32)
[2017-04-17] MEDS: FAMOTIDINE 20 MG INJ IV SCH (08:20)
[2017-04-17] MEDS: CARBIDOPA/LEVODOPA (25/100) TAB PO SCH ×3 (08:20→21:32)
[2017-04-17] MEDS: BENAZEPRIL 10 MG TAB PO SCH (08:21)
[2017-04-17] MEDS: NYSTATIN 30 GM POWDER BTL TOP SCH ×2 (08:21→21:00)
[2017-04-17] MEDS: SERTRALINE 50 MG TAB PO SCH (08:24)
--- NOTE | 2017-04-17 12:01 | CONS ---
Date/Time of Note Date/Time of Note DATE: 04/17/17 TIME: 11:57 Assessment/Plan Assessment/Plan Additional Assessment/Plan ASSESSMENT AND PLAN: An 89-year-old female with: 1. Syncope. 2. Hypertension. 3. Dyslipidemia. 4. Parkinson's disease. 5. Anemia. 6. Hypothyroidism. 7. Seizures. 8. Pneumonia. 9. Cardiomegaly. Negative for orthostasis Ruled out for ACS with negative troponin Clinically not in heart failure Encourage Oral intake Avoid AV Noe Medications Continue HUGO-I as scheduled Continue Empiric antibiotics continue Lipitor Continue Levothyroxine Awaiting Echo results Consultation Date/Type/Reason Admit Date/Time April 16, 2017 at 05:02 Initial Consult Date Exam/Review of Systems Vital Signs Vitals Vital Signs Date Time Temp Pulse Resp B/P Pulse Ox O2 Delivery O2 Flow Rate FiO2 04/17/17 08:14 59 04/17/17 07:41 98.0 18 118/66 98 04/16/17 06:15 Room Air Intake and Output 04/16/17 04/16/17 04/17/17 15:00 23:00 07:00 Intake Total 850 ml Output Total 700 ml Balance 150 ml Exam Constitutional: alert, oriented Head: atraumatic, normocephalic Neck: non-tender, supple Respiratory: clear to auscultation Cardiovascular: regular rate and rhythm Gastrointestinal: nl liver, spleen, non-tender, soft Extremities: normal pulses Results Result Diagram: 04/17/17 0600 04/17/17 0600 Results 24 hrs Laboratory Tests Test 04/16/17 18:50 04/17/17 00:53 04/17/17 06:00 Troponin I < 0.012 < 0.012 < 0.012 B-Type Natriuretic Peptide 2120 H White Blood Count 6.1 # Red Blood Count 3.44 L Hemoglobin 10.2 L Hematocrit 34.3 L Mean Corpuscular Volume 99.7 Mean Corpuscular Hemoglobin 29.7 Mean Corpuscular Hemoglobin Concent 29.7 L Red Cell Distribution Width 16.4 H Platelet Count 181 # Mean Platelet Volume 10.5 H Neutrophils % 37.5 L Lymphocytes % 46.4 Monocytes % 9.8 Eosinophils % 5.0 Basophils % 0.5 Nucleated Red Blood Cells % 0.0 Neutrophils # 2.3 Lymphocytes # 2.9 Monocytes # 0.6 Eosinophils # 0.3 Basophils # 0.0 Nucleated Red Blood Cells # 0.0 Sodium Level 137 Potassium Level 4.4 Chloride Level 113 H Carbon Dioxide Level 21 Anion Gap 7 L Blood Urea Nitrogen 15 Creatinine 0.80 Glucose Level 102 Calcium Level 8.3 L Total Bilirubin 0.0 L Direct Bilirubin 0.00 Indirect Bilirubin 0.0 Aspartate Amino Transf (AST/SGOT) 14 L Alanine Aminotransferase (ALT/SGPT) 23 Alkaline Phosphatase 74 Total Protein 4.7 #L Albumin 2.5 L Globulin 2.20 Albumin/Globulin Ratio 1.13 Medications Medications Current Medications Acetaminophen (Tylenol Tab) 650 mg Q6 PRN PO PAIN; Start 04/16/17 at 06:30 Atorvastatin Calcium (Lipitor) 20 mg QHS PO Last administered on 04/16/17 21: 08; Admin Dose 20 MG; Start 04/16/17 at 21:00 Benazepril HCl (Lotensin) 10 mg DAILY PO Last administered on 04/17/17 08:21; Admin Dose 10 MG; Start 04/16/17 at 09:00 Carbidopa/Levodopa (Sinemet (25/ 100)) 1 tab TID PO Last administered on 08:20; Admin Dose 1 TAB; Start 04/16/17 at 09:00 Levetiracetam (Keppra) 750 mg BID PO Last administered on 04/17/17 08:20; Admin Dose 750 MG; Start 04/16/17 at 09:00 Pramipexole (Mirapex) 0.5 mg TID PO Last administered on 04/17/17 08:19; Admin Dose 0.5 MG; Start 04/16/17 at 09:00 Primidone (Mysoline) 50 mg DAILY PO Last administered on 04/17/17 08:20; Admin Dose 50 MG; Start 04/16/17 at 09:00 Sertraline HCl 25 mg 25 mg DAILY PO Last administered on 04/17/17 08:24; Admin Dose 25 MG; Start 04/16/17 at 09:00 Sodium Chloride (NS) 1,000 ml @ 50 mls/hr Q20H IV Last administered on 05:13; Admin Dose 50 MLS/HR; Start 04/16/17 at 06:21 Ondansetron HCl (Zofran Inj) 4 mg Q6H PRN IV NAUSEA AND/OR VOMITING; Start at 06:30 Famotidine 20 mg 20 mg DAILY IV Last administered on 04/17/17 08:20; Admin Dose 20 MG; Start 04/16/17 at 09:00 Ceftriaxone Sodium (Rocephin) 50 ml @ 100 mls/hr Q24H IVPB Last administered on 04/17/17 05:13; Admin Dose 100 MLS/HR; Start 04/16/17 at 06:30 Nystatin (Nystatin Powder) 1 applic BID TOP Last administered on 04/17/17 08: 21; Admin Dose 1 APPLIC; Start 04/16/17 at 14:00 NAYLA JUAREZ M.D. April 17, 2017 12:01
[2017-04-17] MEDS ORDERED: PENDING SANTYL ORDER FOR WOUND CARE XX PRN (12:30)
[2017-04-17] MEDS: COLLAGENASE 30 GM TUBE TOP SCH ×2 (14:12→21:33)
--- NOTE | 2017-04-17 17:39 | PN ---
Date/Time of Note Date/Time of Note DATE: 04/17/17 TIME: 17:38 Assessment/Plan VTE Prophylaxis VTE Prophylaxis Intervention: other Lines/Catheters IV [facility] [place] Urinary Cath still in place: No Assessment/Plan Chief Complaint/Hosp Course 1. Syncope episode 2. Hypertension 3. Hyperlipidemia 4. Hypothyroidism 5. Ct scan showed changes in right side of the brain as a Chronic right frontal infarct. 6. Parkinson disease 4. Hs seizure 5. Hs abdominal surgery 6. Anemia 7. Diarrhea PLAN GI OMODIUM Problems: Subjective 24 Hr Interval Summary Subjective hx not possible: other (DIARRHEA+) Exam/Review of Systems Vital Signs Vitals Vital Signs Date Time Temp Pulse Resp B/P Pulse Ox O2 Delivery O2 Flow Rate FiO2 04/17/17 16:28 67 04/17/17 15:42 98.0 18 123/69 98 04/16/17 06:15 Room Air Intake and Output 04/16/17 04/16/17 04/17/17 15:00 23:00 07:00 Intake Total 850 ml Output Total 700 ml Balance 150 ml Exam Respiratory: clear to auscultation Cardiovascular: regular rate and rhythm Gastrointestinal: soft Genitourinary - Female: nl external genitalia Results Result Diagram: 04/17/17 0600 04/17/17 0600 Results 24 hrs Laboratory Tests Test 04/16/17 18:50 04/17/17 00:53 04/17/17 06:00 04/17/17 12:11 Troponin I < 0.012 < 0.012 < 0.012 < 0.012 B-Type Natriuretic Peptide 2120 H White Blood Count 6.1 # Red Blood Count 3.44 L Hemoglobin 10.2 L Hematocrit 34.3 L Mean Corpuscular Volume 99.7 Mean Corpuscular Hemoglobin 29.7 Mean Corpuscular Hemoglobin Concent 29.7 L Red Cell Distribution Width 16.4 H Platelet Count 181 # Mean Platelet Volume 10.5 H Neutrophils % 37.5 L Lymphocytes % 46.4 Monocytes % 9.8 Eosinophils % 5.0 Basophils % 0.5 Nucleated Red Blood Cells % 0.0 Neutrophils # 2.3 Lymphocytes # 2.9 Monocytes # 0.6 Eosinophils # 0.3 Basophils # 0.0 Nucleated Red Blood Cells # 0.0 Sodium Level 137 Potassium Level 4.4 Chloride Level 113 H Carbon Dioxide Level 21 Anion Gap 7 L Blood Urea Nitrogen 15 Creatinine 0.80 Glucose Level 102 Calcium Level 8.3 L Total Bilirubin 0.0 L Direct Bilirubin 0.00 Indirect Bilirubin 0.0 Aspartate Amino Transf (AST/SGOT) 14 L Alanine Aminotransferase (ALT/SGPT) 23 Alkaline Phosphatase 74 Total Protein 4.7 #L Albumin 2.5 L Globulin 2.20 Albumin/Globulin Ratio 1.13 Medications Medications Current Medications Acetaminophen (Tylenol Tab) 650 mg Q6 PRN PO PAIN; Start 04/16/17 at 06:30 Atorvastatin Calcium (Lipitor) 20 mg QHS PO Last administered on 04/16/17 21: 08; Admin Dose 20 MG; Start 04/16/17 at 21:00 Benazepril HCl (Lotensin) 10 mg DAILY PO Last administered on 04/17/17 08:21; Admin Dose 10 MG; Start 04/16/17 at 09:00 Carbidopa/Levodopa (Sinemet (25/ 100)) 1 tab TID PO Last administered on 12:34; Admin Dose 1 TAB; Start 04/16/17 at 09:00 Levetiracetam (Keppra) 750 mg BID PO Last administered on 04/17/17 08:20; Admin Dose 750 MG; Start 04/16/17 at 09:00 Pramipexole (Mirapex) 0.5 mg TID PO Last administered on 04/17/17 12:34; Admin Dose 0.5 MG; Start 04/16/17 at 09:00 Primidone (Mysoline) 50 mg DAILY PO Last administered on 04/17/17 08:20; Admin Dose 50 MG; Start 04/16/17 at 09:00 Sertraline HCl 25 mg 25 mg DAILY PO Last administered on 04/17/17 08:24; Admin Dose 25 MG; Start 04/16/17 at 09:00 Sodium Chloride (NS) 1,000 ml @ 50 mls/hr Q20H IV Last administered on 05:13; Admin Dose 50 MLS/HR; Start 04/16/17 at 06:21 Ondansetron HCl 4 mg 4 mg Q6H PRN IV NAUSEA AND/OR VOMITING; Start 04/16/17 at 06:30 Ceftriaxone Sodium (Rocephin) 50 ml @ 100 mls/hr Q24H IVPB Last administered on 04/17/17 05:13; Admin Dose 100 MLS/HR; Start 04/16/17 at 06:30 Nystatin (Nystatin Powder) 1 applic BID TOP Last administered on 04/17/17 08: 21; Admin Dose 1 APPLIC; Start 04/16/17 at 14:00 Collagenase (Santyl) APPLY TO SACRUM & BUTTO... BID TOP Last administered on 14:12; Admin Dose 1 APPLIC; Start 04/17/17 at 13:30 Famotidine (Pepcid) 20 mg DAILY PO ; Start 04/18/17 at 09:00 MYLES SCHAFFER MD April 17, 2017 17:39
[2017-04-17] MEDS ORDERED: LOPERAMIDE 2 MG CAP PO PRN (18:00)
[2017-04-17] MEDS: ATORVASTATIN 20 MG TAB PO SCH (21:32)
[2017-04-18] VITALS (12 sets, daily range): BP systolic 92–137; BP diastolic 51–78; PULSE 57–63; RESP 16–20
[2017-04-18 06:15] LABS: ADD SCAN DIFF NO
[2017-04-18 06:21] LABS: BASOPHIL # 0.1 10^3/ul (0.0-0.1); BASOPHILS % 0.6 % (0.0-2.0); EOSINOPHILS # 0.4 10^3/ul (0.0-0.5); EOSINOPHILS % 5.2 % (0.0-7.0); HEMATOCRIT 37.1 % (37.0-47.0); HEMOGLOBIN 10.8 g/dl (12.0-16.0); LYMPHOCYTES % 37.8 % (15.0-51.0); MEAN CORPUSCULAR HEMOGLOBIN 28.9 pg (29.0-33.0); MEAN CORPUSCULAR HGB CONC 29.1 g/dl (32.0-37.0); MEAN CORPUSCULAR VOLUME 99.2 fl (82.0-101.0); MONOCYTE # 0.9 10^3/ul (0.3-0.9); MONOCYTES % 11.2 % (0.0-11.0); NEUTROPHIL # 3.5 10^3/ul (1.6-7.5); NEUTROPHILS % 44.3 % (39.0-77.0); PLATELET COUNT 180 10^3/UL (140-415); RED BLOOD COUNT 3.74 10^6/ul (4.20-5.40); RED CELL DISTRIBUTION WIDTH 16.2 % (11.5-14.5); WHITE BLOOD COUNT 7.9 10^3/ul (4.8-10.8)
[2017-04-18 07:02] LABS: ALBUMIN 2.6 g/dl (3.3-4.9); ALBUMIN/GLOBULIN RATIO 1.08; CALCIUM 8.3 mg/dl (8.4-10.2); CREATININE 0.78 mg/dl (0.44-1.00); POTASSIUM 4.7 mmol/L (3.5-5.1)
[2017-04-18] MEDS: LEVOTHYROXINE 125 MCG TAB PO SCH (07:50)
[2017-04-18] MEDS: CEFTRIAXONE 1 GM/50 ML (PMX) 50 ML IVPB SCH (07:52)
[2017-04-18] MEDS: LEVETIRACETAM 750 MG TAB PO SCH ×2 (08:34→20:20)
[2017-04-18] MEDS: CARBIDOPA/LEVODOPA (25/100) TAB PO SCH ×3 (08:44→20:20)
[2017-04-18] MEDS: SERTRALINE 50 MG TAB PO SCH (08:45)
[2017-04-18] MEDS: FAMOTIDINE 20 MG TAB PO SCH (08:45)
[2017-04-18] MEDS: PRIMIDONE 50 MG TAB PO SCH (08:45)
[2017-04-18] MEDS: BENAZEPRIL 10 MG TAB PO SCH (08:46)
[2017-04-18] MEDS: COLLAGENASE 30 GM TUBE TOP SCH ×2 (08:47→20:22)
[2017-04-18] MEDS: NYSTATIN 30 GM POWDER BTL TOP SCH ×2 (08:47→20:21)
[2017-04-18] MEDS: PRAMIPEXOLE 0.25 MG TAB PO SCH ×3 (08:51→20:21)
--- NOTE | 2017-04-18 13:08 | CONS ---
DATE OF ADMISSION: 04/16/2017 DATE OF CONSULTATION: GASTROENTEROLOGY CONSULTATION REFERRING PHYSICIAN: Boni Lovett MD REASON FOR CONSULTATION: Diarrhea of 1 day duration. HISTORY OF PRESENT ILLNESS: The patient is an 89-year-old female, came to the ER complaining of syn copal episodes. The patient has had diarrhea for almost 1 week duration. No GI bleeding, no weight loss, no abdominal pain, but vomiting on and off intermittently. In the ER, the patient was diagno sed to have hypotension, and so was admitted for further management. PAST MEDICAL HISTORY: Includes Parkinson's disease, seizure disorder, anemia, hypothyroidism, hyper lipidemia, hypertension. REVIEW OF SYSTEMS: Otherwise negative. PAST SURGICAL HISTORY: None. FAMILY HISTORY: History of hypertension and seizures. SOCIAL HISTORY: Alcohol: None. Former smoker. PHYSICAL EXAMINATION: GENERAL: Alert, awake, not in distress. VITAL SIGNS: Stable. HEENT: Unremarkable. CARDIOVASCULAR: No murmur, gallop, or click. LUNGS: Clear. ABDOMEN: Benign. EXTREMITIES: No edema. CENTRAL NERVOUS SYSTEM: Grossly within normal limits. LABORATORY DATA: The hematocrit is 37.5, WBC is 7.9. CMP is grossly within normal limits. Coagula tion is also normal. C difficile toxin was reported negative. Stool is so far negative. Urine gre w Proteus. IMPRESSION: 1. Urinary tract infection. 2. Parkinson's disease. 3. Diarrhea. 4. Seizure. 5. Hypothyroidism. 6. Hyperlipidemia. 7. Syncopal episode. PLAN: To empirically start the patient on cholestyramine for her diarrhea. So far all the cultures and Clostridium difficile has been negative, and hopefully this will resolve her symptoms. Continu e present care. Dictated By: RAYO LANG/GABRIELLA Conf#: [id number] DID#: [id number]
--- NOTE | 2017-04-18 16:54 | PN ---
Date/Time of Note Date/Time of Note DATE: 04/18/17 TIME: 16:53 Assessment/Plan VTE Prophylaxis VTE Prophylaxis Intervention: other Lines/Catheters IV C[facility]ter Type (from [facility] Peripheral IV Urinary Cath still in place: No Assessment/Plan Chief Complaint/Hosp Course 1. Syncope episode 2. Hypertension 3. Hyperlipidemia 4. Hypothyroidism 5. Ct scan showed changes in right side of the brain as a Chronic right frontal infarct. 6. Parkinson disease 4. Hs seizure 5. Hs abdominal surgery 6. Anemia 7. Diarrhea PLAN GI OMODIUM ck labs Problems: Subjective 24 Hr Interval Summary Cardiovascular: no complaints Gastrointestinal: diarrhea Exam/Review of Systems Vital Signs Vitals Vital Signs Date Time Temp Pulse Resp B/P Pulse Ox O2 Delivery O2 Flow Rate FiO2 04/18/17 16:16 61 04/18/17 15:06 97.8 20 111/56 97 04/16/17 06:15 Room Air Intake and Output 04/17/17 04/17/17 04/18/17 15:00 23:00 07:00 Intake Total 700 ml 510 ml Output Total 700 ml Balance 0 ml 510 ml Exam Respiratory: clear to auscultation Cardiovascular: regular rate and rhythm Gastrointestinal: soft Results Result Diagram: 04/18/17 0543 04/18/17 0543 Results 24 hrs Laboratory Tests Test 04/17/17 18:45 04/18/17 00:58 04/18/17 05:43 Troponin I < 0.012 < 0.012 White Blood Count 7.9 # Red Blood Count 3.74 L Hemoglobin 10.8 L Hematocrit 37.1 Mean Corpuscular Volume 99.2 Mean Corpuscular Hemoglobin 28.9 L Mean Corpuscular Hemoglobin Concent 29.1 L Red Cell Distribution Width 16.2 H Platelet Count 180 Mean Platelet Volume 10.0 Neutrophils % 44.3 Lymphocytes % 37.8 Monocytes % 11.2 H Eosinophils % 5.2 Basophils % 0.6 Nucleated Red Blood Cells % 0.0 Neutrophils # 3.5 Lymphocytes # 3.0 H Monocytes # 0.9 Eosinophils # 0.4 Basophils # 0.1 Nucleated Red Blood Cells # 0.0 Sodium Level 134 L Potassium Level 4.7 Chloride Level 108 Carbon Dioxide Level 24 Anion Gap 7 L Blood Urea Nitrogen 17 Creatinine 0.78 Glucose Level 76 Calcium Level 8.3 L Total Bilirubin 0.0 L Direct Bilirubin 0.00 Indirect Bilirubin 0.0 Aspartate Amino Transf (AST/SGOT) 14 L Alanine Aminotransferase (ALT/SGPT) 18 Alkaline Phosphatase 72 Total Protein 5.0 L Albumin 2.6 L Globulin 2.40 Albumin/Globulin Ratio 1.08 Medications Medications Current Medications Acetaminophen (Tylenol Tab) 650 mg Q6 PRN PO PAIN; Start 04/16/17 at 06:30 Atorvastatin Calcium (Lipitor) 20 mg QHS PO Last administered on 04/17/17 21: 32; Admin Dose 20 MG; Start 04/16/17 at 21:00 Benazepril HCl (Lotensin) 10 mg DAILY PO Last administered on 04/18/17 08:46; Admin Dose 10 MG; Start 04/16/17 at 09:00 Carbidopa/Levodopa (Sinemet (25/ 100)) 1 tab TID PO Last administered on 12:20; Admin Dose 1 TAB; Start 04/16/17 at 09:00 Levetiracetam (Keppra) 750 mg BID PO Last administered on 04/18/17 08:34; Admin Dose 750 MG; Start 04/16/17 at 09:00 Pramipexole (Mirapex) 0.5 mg TID PO Last administered on 04/18/17 12:20; Admin Dose 0.5 MG; Start 04/16/17 at 09:00 Primidone (Mysoline) 50 mg DAILY PO Last administered on 04/18/17 08:45; Admin Dose 50 MG; Start 04/16/17 at 09:00 Sertraline HCl 25 mg 25 mg DAILY PO Last administered on 04/18/17 08:45; Admin Dose 25 MG; Start 04/16/17 at 09:00 Sodium Chloride (NS) 1,000 ml @ 50 mls/hr Q20H IV Last administered on 22:21; Admin Dose 50 MLS/HR; Start 04/16/17 at 06:21 Ondansetron HCl 4 mg 4 mg Q6H PRN IV NAUSEA AND/OR VOMITING; Start 04/16/17 at 06:30 Ceftriaxone Sodium (Rocephin) 50 ml @ 100 mls/hr Q24H IVPB Last administered on 04/18/17 07:52; Admin Dose 100 MLS/HR; Start 5/20/17 at 06:30 Nystatin (Nystatin Powder) 1 applic BID TOP Last administered on 04/18/17 08: 47; Admin Dose 1 APPLIC; Start 04/16/17 at 14:00 Collagenase (Santyl) APPLY TO SACRUM & BUTTO... BID TOP Last administered on 08:47; Admin Dose 1 APPLIC; Start 04/17/17 at 13:30 Famotidine (Pepcid) 20 mg DAILY PO Last administered on 04/18/17 08:45; Admin Dose 20 MG; Start 04/18/17 at 09:00 Loperamide HCl (Imodium Cap) 2 mg QID PRN PO DIARRHEA; Start 04/17/17 at 18:00 MYLES SCHAFFER MD April 18, 2017 16:54
--- NOTE | 2017-04-18 17:43 | CONS ---
Date/Time of Note Date/Time of Note DATE: 04/18/17 TIME: 17:35 Assessment/Plan Assessment/Plan Chief Complaint/Hosp Course Imp: 1.syncope-preserved EF by echo 02/11 with Diastolic dysfunction. negative trop >3 2.HTN-somewhat labile 3.HL 4.H/O seizures 5.Anemia 6.Loose stools/diarrhea 7.Bradycardia to 50's/S. Jeremy Recc: -Tele -Continue Benazepril -Continue statin -Continue abx's and f/u cx data -Follow volume status closely -Check TSH -Check fasting lipid panel Problems: Consultation Date/Type/Reason Admit Date/Time April 16, 2017 at 05:02 Initial Consult Date 04/17/2017 Type of Consultation: Cardiology Reason for Consultation syncope Referring Provider: MYLES SCHAFFER Exam/Review of Systems Vital Signs Vitals Vital Signs Date Time Temp Pulse Resp B/P Pulse Ox O2 Delivery O2 Flow Rate FiO2 04/18/17 16:16 61 04/18/17 15:06 97.8 20 111/56 97 04/16/17 06:15 Room Air Intake and Output 04/17/17 04/17/17 04/18/17 15:00 23:00 07:00 Intake Total 700 ml 510 ml Output Total 700 ml Balance 0 ml 510 ml Exam Review of Systems: CONSTITUTIONAL: No fevers, chills. PULMONARY: No sob CARDIOVASCULAR: No chest pain/palpitations GASTROINTESTINAL: No nausea/vomiting. GENITOURINARY: No hematuria/dysuria. MUSCULOSKELETAL: No myagias/arthalgias. PSYCHIATRIC: The patient denies depression. NEUROLOGIC: lethargic Constitutional: alert Psych: no complaints Head: normocephalic ENMT: mucosa pink and moist Neck: jvd (9 cm water), supple Respiratory: diminished breath sounds (at bases/B) Cardiovascular: regular rate and rhythm Gastrointestinal: non-tender, soft Musculoskeletal: muscle tone (normal) Extremities: edema (none) Neurological: lethargic Results Result Diagram: 04/18/17 0543 04/18/17 0543 Results 24 hrs Laboratory Tests Test 04/17/17 18:45 04/18/17 00:58 04/18/17 05:43 Troponin I < 0.012 < 0.012 White Blood Count 7.9 # Red Blood Count 3.74 L Hemoglobin 10.8 L Hematocrit 37.1 Mean Corpuscular Volume 99.2 Mean Corpuscular Hemoglobin 28.9 L Mean Corpuscular Hemoglobin Concent 29.1 L Red Cell Distribution Width 16.2 H Platelet Count 180 Mean Platelet Volume 10.0 Neutrophils % 44.3 Lymphocytes % 37.8 Monocytes % 11.2 H Eosinophils % 5.2 Basophils % 0.6 Nucleated Red Blood Cells % 0.0 Neutrophils # 3.5 Lymphocytes # 3.0 H Monocytes # 0.9 Eosinophils # 0.4 Basophils # 0.1 Nucleated Red Blood Cells # 0.0 Sodium Level 134 L Potassium Level 4.7 Chloride Level 108 Carbon Dioxide Level 24 Anion Gap 7 L Blood Urea Nitrogen 17 Creatinine 0.78 Glucose Level 76 Calcium Level 8.3 L Total Bilirubin 0.0 L Direct Bilirubin 0.00 Indirect Bilirubin 0.0 Aspartate Amino Transf (AST/SGOT) 14 L Alanine Aminotransferase (ALT/SGPT) 18 Alkaline Phosphatase 72 Total Protein 5.0 L Albumin 2.6 L Globulin 2.40 Albumin/Globulin Ratio 1.08 Medications Medications Current Medications Acetaminophen (Tylenol Tab) 650 mg Q6 PRN PO PAIN; Start 04/16/17 at 06:30 Atorvastatin Calcium (Lipitor) 20 mg QHS PO Last administered on 04/17/17 21: 32; Admin Dose 20 MG; Start 04/16/17 at 21:00 Benazepril HCl (Lotensin) 10 mg DAILY PO Last administered on 04/18/17 08:46; Admin Dose 10 MG; Start 04/16/17 at 09:00 Carbidopa/Levodopa (Sinemet (25/ 100)) 1 tab TID PO Last administered on 12:20; Admin Dose 1 TAB; Start 04/16/17 at 09:00 Levetiracetam (Keppra) 750 mg BID PO Last administered on 04/18/17 08:34; Admin Dose 750 MG; Start 04/16/17 at 09:00 Pramipexole (Mirapex) 0.5 mg TID PO Last administered on 04/18/17 12:20; Admin Dose 0.5 MG; Start 04/16/17 at 09:00 Primidone (Mysoline) 50 mg DAILY PO Last administered on 04/18/17 08:45; Admin Dose 50 MG; Start 04/16/17 at 09:00 Sertraline HCl 25 mg 25 mg DAILY PO Last administered on 04/18/17 08:45; Admin Dose 25 MG; Start 04/16/17 at 09:00 Sodium Chloride (NS) 1,000 ml @ 50 mls/hr Q20H IV Last administered on 22:21; Admin Dose 50 MLS/HR; Start 04/16/17 at 06:21 Ondansetron HCl 4 mg 4 mg Q6H PRN IV NAUSEA AND/OR VOMITING; Start 04/16/17 at 06:30 Ceftriaxone Sodium (Rocephin) 50 ml @ 100 mls/hr Q24H IVPB Last administered on 04/18/17 07:52; Admin Dose 100 MLS/HR; Start 04/16/17 at 06:30 Nystatin (Nystatin Powder) 1 applic BID TOP Last administered on 04/18/17 08: 47; Admin Dose 1 APPLIC; Start 04/16/17 at 14:00 Collagenase (Santyl) APPLY TO SACRUM & BUTTO... BID TOP Last administered on 08:47; Admin Dose 1 APPLIC; Start 04/17/17 at 13:30 Famotidine (Pepcid) 20 mg DAILY PO Last administered on 04/18/17 08:45; Admin Dose 20 MG; Start 04/18/17 at 09:00 Loperamide HCl (Imodium Cap) 2 mg QID PRN PO DIARRHEA; Start 04/17/17 at 18:00 KELLY DOSS April 18, 2017 17:43
[2017-04-18] MEDS: SOD CHLORIDE 0.9% 1,000 ML IV SCH (18:01)
[2017-04-18] MEDS: ATORVASTATIN 20 MG TAB PO SCH (20:20)
--- NOTE | 2017-04-18 23:48 | RADRPT ---
Echocardiogram Report Patient Name: DAVID BLACK Gender: Female Date: 1925 Study Date: 18-Apr-2017 Head Of Marketing Adometry: EMMIE Location: I Ref. Physician: NAYLA JUAREZ Quality: Adequate Procedures: Transthoracic echocardiogram examination. Indications: Syncope. 2D/M Mode Doppler Measurement Value Normal Range Measurement Value Normal Range LVOT Diam 2.0 cm DASHAWN Vmax 2.3 cm2 LVOT Area 3.1 cm2 AV Peak Froilan 1.2 m/sec AV Peak PG 6.0 mmHg AI Peak PG 31.0 mmHg AI Peak Froilan 2.8 m/sec LVOT Peak Froilan 0.8 m/sec LVOT Peak PG 3.0 mmHg TR Peak Froilan 4.1 m/sec TR Peak PG 67.0 mmHg RVSP 75.0 mmHg Findings Left Ventricle: Normal left ventricular cavity size. Normal left ventricular systolic function. Moderate concentric left ventricular hypertrophy. The left ventricular ejection fraction is visually estimated at 60 - 65 %. Right Ventricle: Normal right ventricular size. Normal right ventricular systolic function. Left Atrium: The left atrium is normal in size and appearance. Right Atrium: The right atrium is normal in size and appearance. Mitral Valve: Anterior mitral valve leaflet appear mildly thickened. Mild mitral annular calcification. Mild to moderate mitral regurgitation. Aortic Valve: No hemodynamically significant aortic stenosis by Doppler. Aortic cusps appear mildly calcified. Mild aortic regurgitation. Tricuspid Valve: Normal appearance of the tricuspid valve. The estimated Peak RVSP is 75 mmHg. There is moderate tricuspid regurgitation. Pulmonic Valve: Normal pulmonic valve appearance and function with trivial (physiologic) regurgitation. Pericardium: Normal pericardium with no significant pericardial effusion. There is an anterior echo free space consistent with epicardial fat pad. Aorta: Normal aortic root. IVC: Dilated inferior vena cava with respiratory collapse only with sniff. Conclusions 1.Normal left ventricular cavity size. Normal left ventricular systolic function. Moderate concentric left ventricular hypertrophy. The left ventricular ejection fraction is visually estimated at 60 - 65 %. 2.Mild to moderate mitral regurgitation. 3.Mild aortic regurgitation. 4.Normal appearance of the tricuspid valve. The estimated Peak RVSP is 75 mmHg. There is moderate tricuspid regurgitation. 5.Normal pulmonic valve appearance and function with trivial (physiologic) regurgitation. 6.Normal pericardium with no significant pericardial effusion. There is an anterior echo free space consistent with epicardial fat pad. Electronically Signed By: Yosvany Mccabe 18-Apr-2017 23:47:18 -0700 Patient Name: DAVID BLACK Study Date: 18-Apr-[id number]
[2017-04-19] VITALS (11 sets, daily range): BP systolic 115–154; BP diastolic 58–68; PULSE 60–76; RESP 16–22
[2017-04-19] MEDS: LEVOTHYROXINE 125 MCG TAB PO SCH (06:13)
[2017-04-19] MEDS: CEFTRIAXONE 1 GM/50 ML (PMX) 50 ML IVPB SCH (06:14)
[2017-04-19 07:08] LABS: CHOL/HDL RATIO 2.2 RATIO; POTASSIUM 4.7 mmol/L (3.5-5.1)
[2017-04-19 07:10] LABS: CREATININE 0.69 mg/dl (0.44-1.00)
[2017-04-19 07:11] LABS: CALCIUM 8.5 mg/dl (8.4-10.2)
[2017-04-19] MEDS: CARBIDOPA/LEVODOPA (25/100) TAB PO SCH ×3 (09:18→20:52)
[2017-04-19] MEDS: SERTRALINE 50 MG TAB PO SCH (09:19)
[2017-04-19] MEDS: PRAMIPEXOLE 0.25 MG TAB PO SCH ×3 (09:19→20:52)
[2017-04-19] MEDS: FAMOTIDINE 20 MG TAB PO SCH (09:19)
[2017-04-19] MEDS: LEVETIRACETAM 750 MG TAB PO SCH ×2 (09:19→20:55)
[2017-04-19] MEDS: BENAZEPRIL 10 MG TAB PO SCH (09:19)
[2017-04-19] MEDS: NYSTATIN 30 GM POWDER BTL TOP SCH ×2 (09:20→20:56)
[2017-04-19] MEDS: COLLAGENASE 30 GM TUBE TOP SCH ×2 (09:20→21:03)
[2017-04-19] MEDS: PRIMIDONE 50 MG TAB PO SCH (09:24)
--- NOTE | 2017-04-19 12:17 | CONS ---
Date/Time of Note Date/Time of Note DATE: 04/19/17 TIME: 12:15 Assessment/Plan Assessment/Plan Additional Assessment/Plan 1.syncope-preserved EF by echo 02/11 with Diastolic dysfunction. negative trop > 3 - no new episodes, no indication for pacer 2.HTN-somewhat labile - better now 3.HL 4.H/O seizures - primary follows 5.Anemia - H/H stable - no new new bleed 6.Loose stools/diarrhea - stable 7.Bradycardia to 50's/S. Jeremy - no indication for pacer Consultation Date/Type/Reason Admit Date/Time April 16, 2017 at 05:02 Initial Consult Date Type of Consultation: Cardiology Referring Provider: MYLES SCHAFFER MD 24 HR Interval Summary Free Text/Dictation No acute change - no pauser - no new episodes, no indication for pacer ROS: No fever, no chills, no nausea, no vomiting, no diarrhea/constipation No recent weight changes No chest pain, no PND, no orthopnea No dizziness, blurred vision No thirst, no heat or cold intolerance Exam/Review of Systems Vital Signs Vitals Vital Signs Date Time Temp Pulse Resp B/P Pulse Ox O2 Delivery O2 Flow Rate FiO2 04/19/17 11:10 97.9 79 18 115/68 97 04/16/17 06:15 Room Air Intake and Output 04/18/17 04/18/17 04/19/17 15:00 23:00 07:00 Intake Total 50 ml 1460 ml 650 ml Balance 50 ml 1460 ml 650 ml Exam General: WN/WD/NAD, AOx 2-3 HEENT: Unicetric/atraumatic/EOMI (follow commands) NECK: JVD elevated, no thyromegaly Lymph: no lymphadenopathy HEART: regular with no S3, II/ systolic murmur at apex LUNGS: Coarse sounds ABD: soft, NT, ND, +BS : Intact Neuro: non focal SKIN: chronic changes EXT: trace edema Results Result Diagram: 04/18/17 0543 04/19/17 0627 Results 24 hrs Laboratory Tests Test 04/19/17 06:27 Sodium Level 137 Potassium Level 4.7 Chloride Level 103 Carbon Dioxide Level 27 Anion Gap 12 Blood Urea Nitrogen 16 Creatinine 0.69 Glucose Level 90 Calcium Level 8.5 Triglycerides Level 72 Cholesterol Level 120 LDL Cholesterol, Calculated 53 HDL Cholesterol 53 Cholesterol/HDL Ratio 2.2 Medications Medications Current Medications Acetaminophen (Tylenol Tab) 650 mg Q6 PRN PO PAIN; Start 04/16/17 at 06:30 Atorvastatin Calcium (Lipitor) 20 mg QHS PO Last administered on 04/18/17 20: 20; Admin Dose 20 MG; Start 04/16/17 at 21:00 Benazepril HCl (Lotensin) 10 mg DAILY PO Last administered on 04/19/17 09:19; Admin Dose 10 MG; Start 04/16/17 at 09:00 Carbidopa/Levodopa (Sinemet (25/ 100)) 1 tab TID PO Last administered on 09:18; Admin Dose 1 TAB; Start 04/16/17 at 09:00 Levetiracetam (Keppra) 750 mg BID PO Last administered on 04/19/17 09:19; Admin Dose 750 MG; Start 04/16/17 at 09:00 Pramipexole (Mirapex) 0.5 mg TID PO Last administered on 04/19/17 09:19; Admin Dose 0.5 MG; Start 04/16/17 at 09:00 Primidone (Mysoline) 50 mg DAILY PO Last administered on 04/19/17 09:24; Admin Dose 50 MG; Start 04/16/17 at 09:00 Sertraline HCl 25 mg 25 mg DAILY PO Last administered on 04/19/17 09:19; Admin Dose 25 MG; Start 04/16/17 at 09:00 Sodium Chloride (NS) 1,000 ml @ 50 mls/hr Q20H IV Last administered on 22:21; Admin Dose 50 MLS/HR; Start 04/16/17 at 06:21 Ondansetron HCl 4 mg 4 mg Q6H PRN IV NAUSEA AND/OR VOMITING; Start 04/16/17 at 06:30 Ceftriaxone Sodium (Rocephin) 50 ml @ 100 mls/hr Q24H IVPB Last administered on 04/19/17 06:14; Admin Dose 100 MLS/HR; Start 04/16/17 at 06:30 Nystatin (Nystatin Powder) 1 applic BID TOP Last administered on 04/19/17 09: 20; Admin Dose 1 APPLIC; Start 04/16/17 at 14:00 Collagenase (Santyl) APPLY TO SACRUM & BUTTO... BID TOP Last administered on 09:20; Admin Dose 1 APPLIC; Start 04/17/17 at 13:30 Famotidine (Pepcid) 20 mg DAILY PO Last administered on 04/19/17 09:19; Admin Dose 20 MG; Start 04/18/17 at 09:00 Loperamide HCl (Imodium Cap) 2 mg QID PRN PO DIARRHEA; Start 04/17/17 at 18:00 Cholestyramine Resin (Questran Light) 4 gm BID PO ; Start 04/19/17 at 09:00 ETELVINA ENRIQUEZ MD April 19, 2017 12:17
[2017-04-19] MEDS: CHOLESTYRAMINE (LIGHT) 4 GM PACKET PO SCH ×2 (13:32→20:52)
[2017-04-19] MEDS: SOD CHLORIDE 0.9% 1,000 ML IV SCH ×2 (14:21→20:51)
[2017-04-19] MEDS: CEPHALEXIN 500 MG CAP PO SCH ×2 (17:53→20:51)
--- NOTE | 2017-04-19 18:49 | CONS ---
Date/Time of Note Date/Time of Note DATE: 04/19/17 TIME: 18:48 Assessment/Plan Assessment/Plan Additional Assessment/Plan IMPRESSION: 1. Urinary tract infection. 2. Parkinson's disease. 3. Diarrhea. All cultures are negative so far 4. Seizure. 5. Hypothyroidism. 6. Hyperlipidemia. 7. Syncopal episode. Plan Patient started on Questran Consultation Date/Type/Reason Admit Date/Time April 16, 2017 at 05:02 Initial Consult Date Type of Consultation: Cardiology Referring Provider: MYLES SCHAFFER MD 24 HR Interval Summary Free Text/Dictation Diarrhea Exam/Review of Systems Vital Signs Vitals Vital Signs Date Time Temp Pulse Resp B/P Pulse Ox O2 Delivery O2 Flow Rate FiO2 04/19/17 16:14 76 04/19/17 11:10 97.9 18 115/68 97 04/16/17 06:15 Room Air Intake and Output 04/18/17 04/18/17 04/19/17 15:00 23:00 07:00 Intake Total 50 ml 1460 ml 650 ml Balance 50 ml 1460 ml 650 ml Exam Constitutional: alert, oriented, well developed Psych: nl mood/affect, no complaints Head: atraumatic, normocephalic Eyes: EOMI, PERRL, nl conjunctiva, nl lids, nl sclera ENMT: nl external ears & nose, nl lips & teeth, nl nasal mucosa & septum Neck: non-tender, supple Respiratory: clear to auscultation, normal air movement Cardiovascular: nl pulses, regular rate and rhythm Gastrointestinal: nl liver, spleen, non-tender, soft Musculoskeletal: nl extremities to inspection, nl gait and stance Extremities: normal pulses Neurological: PATIENT ASSISTANT II-XII intact, nl mental status, nl speech, nl strength Skin: nl turgor, No rash or lesions Lymph: nl lymph nodes Results Result Diagram: 04/18/17 0543 04/19/17 0627 Results 24 hrs Laboratory Tests Test 04/19/17 06:27 Sodium Level 137 Potassium Level 4.7 Chloride Level 103 Carbon Dioxide Level 27 Anion Gap 12 Blood Urea Nitrogen 16 Creatinine 0.69 Glucose Level 90 Calcium Level 8.5 Triglycerides Level 72 Cholesterol Level 120 LDL Cholesterol, Calculated 53 HDL Cholesterol 53 Cholesterol/HDL Ratio 2.2 Medications Medications Current Medications Acetaminophen (Tylenol Tab) 650 mg Q6 PRN PO PAIN; Start 04/16/17 at 06:30 Atorvastatin Calcium (Lipitor) 20 mg QHS PO Last administered on 04/18/17 20: 20; Admin Dose 20 MG; Start 04/16/17 at 21:00 Benazepril HCl (Lotensin) 10 mg DAILY PO Last administered on 04/19/17 09:19; Admin Dose 10 MG; Start 04/16/17 at 09:00 Carbidopa/Levodopa (Sinemet (25/ 100)) 1 tab TID PO Last administered on 13:32; Admin Dose 1 TAB; Start 04/16/17 at 09:00 Levetiracetam (Keppra) 750 mg BID PO Last administered on 04/19/17 09:19; Admin Dose 750 MG; Start 04/16/17 at 09:00 Pramipexole (Mirapex) 0.5 mg TID PO Last administered on 04/19/17 13:32; Admin Dose 0.5 MG; Start 04/16/17 at 09:00 Primidone (Mysoline) 50 mg DAILY PO Last administered on 04/19/17 09:24; Admin Dose 50 MG; Start 04/16/17 at 09:00 Sertraline HCl 25 mg 25 mg DAILY PO Last administered on 04/19/17 09:19; Admin Dose 25 MG; Start 04/16/17 at 09:00 Sodium Chloride (NS) 1,000 ml @ 50 mls/hr Q20H IV Last administered on 22:21; Admin Dose 50 MLS/HR; Start 04/16/17 at 06:21 Ondansetron HCl 4 mg 4 mg Q6H PRN IV NAUSEA AND/OR VOMITING; Start 04/16/17 at 06:30 Ceftriaxone Sodium (Rocephin) 50 ml @ 100 mls/hr Q24H IVPB Last administered on 04/19/17 06:14; Admin Dose 100 MLS/HR; Start 04/16/17 at 06:30 Nystatin (Nystatin Powder) 1 applic BID TOP Last administered on 04/19/17 09: 20; Admin Dose 1 APPLIC; Start 04/16/17 at 14:00 Collagenase (Santyl) APPLY TO SACRUM & BUTTO... BID TOP Last administered on 09:20; Admin Dose 1 APPLIC; Start 04/17/17 at 13:30 Famotidine (Pepcid) 20 mg DAILY PO Last administered on 04/19/17 09:19; Admin Dose 20 MG; Start 04/18/17 at 09:00 Loperamide HCl (Imodium Cap) 2 mg QID PRN PO DIARRHEA; Start 04/17/17 at 18:00 Cholestyramine Resin (Questran Light) 4 gm BID PO Last administered on 13:32; Admin Dose 4 GM; Start 04/19/17 at 09:00 Cephalexin (Keflex) 500 mg QID PO Last administered on 04/19/17 17:53; Admin Dose 500 MG; Start 04/19/17 at 17:00 RAYO HUI MD April 19, 2017 18:49
[2017-04-19] MEDS: ATORVASTATIN 20 MG TAB PO SCH (20:52)
--- NOTE | 2017-04-19 23:47 | PN ---
Date/Time of Note Date/Time of Note DATE: 04/19/17 TIME: 23:46 Assessment/Plan VTE Prophylaxis VTE Prophylaxis Intervention: other Lines/Catheters IV [facility] Peripheral IV Urinary Cath still in place: No Assessment/Plan Chief Complaint/Hosp Course 1. Syncope episode 2. Hypertension 3. Hyperlipidemia 4. Hypothyroidism 5. Ct scan showed changes in right side of the brain as a Chronic right frontal infarct. 6. Parkinson disease 4. Hs seizure 5. Hs abdominal surgery 6. Anemia 7. Diarrhea PLAN GI OMODIUM ck labs Problems: Subjective 24 Hr Interval Summary Gastrointestinal: No diarrhea Exam/Review of Systems Vital Signs Vitals Vital Signs Date Time Temp Pulse Resp B/P Pulse Ox O2 Delivery O2 Flow Rate FiO2 04/19/17 23:26 98.2 80 20 154/60 95 04/16/17 06:15 Room Air Intake and Output 04/18/17 04/18/17 04/19/17 15:00 23:00 07:00 Intake Total 50 ml 1460 ml 650 ml Balance 50 ml 1460 ml 650 ml Exam Respiratory: clear to auscultation Cardiovascular: regular rate and rhythm Gastrointestinal: ascites, bowel sounds, soft Results Result Diagram: 04/18/17 0543 04/19/17 0627 Results 24 hrs Laboratory Tests Test 04/19/17 06:27 Sodium Level 137 Potassium Level 4.7 Chloride Level 103 Carbon Dioxide Level 27 Anion Gap 12 Blood Urea Nitrogen 16 Creatinine 0.69 Glucose Level 90 Calcium Level 8.5 Triglycerides Level 72 Cholesterol Level 120 LDL Cholesterol, Calculated 53 HDL Cholesterol 53 Cholesterol/HDL Ratio 2.2 Medications Medications Current Medications Acetaminophen (Tylenol Tab) 650 mg Q6 PRN PO PAIN; Start 04/16/17 at 06:30 Atorvastatin Calcium (Lipitor) 20 mg QHS PO Last administered on 04/19/17 20: 52; Admin Dose 20 MG; Start 04/16/17 at 21:00 Benazepril HCl (Lotensin) 10 mg DAILY PO Last administered on 04/19/17 09:19; Admin Dose 10 MG; Start 04/16/17 at 09:00 Carbidopa/Levodopa (Sinemet (25/ 100)) 1 tab TID PO Last administered on 20:52; Admin Dose 1 TAB; Start 04/16/17 at 09:00 Levetiracetam (Keppra) 750 mg BID PO Last administered on 04/19/17 20:55; Admin Dose 750 MG; Start 04/16/17 at 09:00 Pramipexole (Mirapex) 0.5 mg TID PO Last administered on 04/19/17 20:52; Admin Dose 0.5 MG; Start 04/16/17 at 09:00 Primidone (Mysoline) 50 mg DAILY PO Last administered on 04/19/17 09:24; Admin Dose 50 MG; Start 04/16/17 at 09:00 Sertraline HCl 25 mg 25 mg DAILY PO Last administered on 04/19/17 09:19; Admin Dose 25 MG; Start 04/16/17 at 09:00 Sodium Chloride (NS) 1,000 ml @ 50 mls/hr Q20H IV Last administered on 20:51; Admin Dose 50 MLS/HR; Start 04/16/17 at 06:21 Ondansetron HCl 4 mg 4 mg Q6H PRN IV NAUSEA AND/OR VOMITING; Start 04/16/17 at 06:30 Ceftriaxone Sodium (Rocephin) 50 ml @ 100 mls/hr Q24H IVPB Last administered on 04/19/17 06:14; Admin Dose 100 MLS/HR; Start 04/16/17 at 06:30 Nystatin (Nystatin Powder) 1 applic BID TOP Last administered on 04/19/17 20: 56; Admin Dose 1 APPLIC; Start 04/16/17 at 14:00 Collagenase (Santyl) APPLY TO SACRUM & BUTTO... BID TOP Last administered on 21:03; Admin Dose 1 APPLIC; Start 04/17/17 at 13:30 Famotidine (Pepcid) 20 mg DAILY PO Last administered on 04/19/17 09:19; Admin Dose 20 MG; Start 04/18/17 at 09:00 Loperamide HCl (Imodium Cap) 2 mg QID PRN PO DIARRHEA; Start 04/17/17 at 18:00 Cholestyramine Resin (Questran Light) 4 gm BID PO Last administered on 20:52; Admin Dose 4 GM; Start 04/19/17 at 09:00 Cephalexin (Keflex) 500 mg QID PO Last administered on 5/23/17at 20:51; Admin Dose 500 MG; Start 04/19/17 at 17:00 MYLES SCHAFFER MD April 19, 2017 23:46
[2017-04-20] MEDS: CEFTRIAXONE 1 GM/50 ML (PMX) 50 ML IVPB SCH (06:23)
[2017-04-20] MEDS: LEVOTHYROXINE 100 MCG TAB PO SCH (06:23)
[2017-04-20 08:33] VITALS: BP 140/103; RESP 20
[2017-04-20] MEDS: SERTRALINE 50 MG TAB PO SCH (09:00)
[2017-04-20] MEDS: CHOLESTYRAMINE (LIGHT) 4 GM PACKET PO SCH ×2 (09:00→20:53)
[2017-04-20] MEDS: PRIMIDONE 50 MG TAB PO SCH (09:00)
[2017-04-20] MEDS: LEVETIRACETAM 750 MG TAB PO SCH ×2 (09:00→20:53)
[2017-04-20] MEDS: PRAMIPEXOLE 1 MG TAB PO SCH ×3 (09:30→21:01)
[2017-04-20] MEDS: NYSTATIN 30 GM POWDER BTL TOP SCH ×2 (10:06→20:54)
[2017-04-20] MEDS: FAMOTIDINE 20 MG TAB PO SCH (10:06)
[2017-04-20] MEDS: CEPHALEXIN 500 MG CAP PO SCH ×4 (10:06→20:53)
[2017-04-20] MEDS: BENAZEPRIL 10 MG TAB PO SCH (10:06)
[2017-04-20] MEDS: CARBIDOPA/LEVODOPA (25/100) TAB PO SCH ×3 (10:06→20:53)
[2017-04-20] MEDS: COLLAGENASE 30 GM TUBE TOP SCH ×2 (10:07→20:55)
--- NOTE | 2017-04-20 15:42 | CONS ---
Date/Time of Note Date/Time of Note DATE: 04/20/17 TIME: 15:39 Assessment/Plan Assessment/Plan Chief Complaint/Hosp Course Imp: 1.syncope-preserved EF by echo 02/11 with Diastolic dysfunction. negative trop >3 2.HTN-somewhat labile 3.HL 4.H/O seizures 5.Anemia 6.Loose stools/diarrhea-negative c diff 7.Bradycardia to 50's/S. Jeremy while on tele with stable BP Recc: -Tele -Continue Benazepril -Continue statin -Continue abx's and f/u cx data -Follow volume status closely -ongoing GI eval of loose stools -Continue abx's and f/u cx data Problems: Consultation Date/Type/Reason Admit Date/Time April 16, 2017 at 05:02 Initial Consult Date 04/17/2017 Type of Consultation: Cardiology Reason for Consultation syncope Referring Provider: MYLES SCHAFFER MD Exam/Review of Systems Vital Signs Vitals Vital Signs Date Time Temp Pulse Resp B/P Pulse Ox O2 Delivery O2 Flow Rate FiO2 04/20/17 08:33 97.3 59 20 140/103 93 Intake and Output 04/19/17 04/19/17 04/20/17 15:00 23:00 07:00 Intake Total 750 ml 240 ml Balance 750 ml 240 ml Exam Review of Systems: CONSTITUTIONAL: No fevers, chills. PULMONARY: No sob CARDIOVASCULAR: No chest pain/palpitations GASTROINTESTINAL:Loose stools GENITOURINARY: No hematuria/dysuria. MUSCULOSKELETAL: No myagias/arthalgias. PSYCHIATRIC: The patient denies depression. NEUROLOGIC: No weakness Constitutional: other (sleeping, easily arousable) Psych: no complaints Head: normocephalic ENMT: mucosa pink and moist Neck: supple Respiratory: diminished breath sounds (at bases/B) Cardiovascular: regular rate and rhythm Gastrointestinal: non-tender, soft Musculoskeletal: muscle tone (normal) Extremities: edema (none) Neurological: lethargic, other (No focal deficits) Results Result Diagram: 04/18/17 0543 04/19/17 0627 Medications Medications Current Medications Acetaminophen (Tylenol Tab) 650 mg Q6 PRN PO PAIN; Start 04/16/17 at 06:30 Atorvastatin Calcium (Lipitor) 20 mg QHS PO Last administered on 04/19/17t 20: 52; Admin Dose 20 MG; Start 04/16/17 at 21:00 Benazepril HCl (Lotensin) 10 mg DAILY PO Last administered on 04/20/17 10:06; Admin Dose 10 MG; Start 04/16/17 at 09:00 Carbidopa/Levodopa (Sinemet (25/ 100)) 1 tab TID PO Last administered on 13:31; Admin Dose 1 TAB; Start 04/16/17 at 09:00 Levetiracetam (Keppra) 750 mg BID PO Last administered on 04/19/17 20:55; Admin Dose 750 MG; Start 04/16/17 at 09:00 Primidone (Mysoline) 50 mg DAILY PO Last administered on 04/19/17 09:24; Admin Dose 50 MG; Start 04/16/17 at 09:00 Sertraline HCl 25 mg 25 mg DAILY PO Last administered on 04/19/17 09:19; Admin Dose 25 MG; Start 04/16/17 at 09:00 Sodium Chloride (NS) 1,000 ml @ 50 mls/hr Q20H IV Last administered on 20:51; Admin Dose 50 MLS/HR; Start 04/16/17 at 06:21 Ondansetron HCl 4 mg 4 mg Q6H PRN IV NAUSEA AND/OR VOMITING; Start 04/16/17 at 06:30 Ceftriaxone Sodium (Rocephin) 50 ml @ 100 mls/hr Q24H IVPB Last administered on 04/20/17 06:23; Admin Dose 100 MLS/HR; Start 04/16/17 at 06:30 Nystatin (Nystatin Powder) 1 applic BID TOP Last administered on 04/20/17 10: 06; Admin Dose 1 APPLIC; Start 04/16/17 at 14:00 Collagenase (Santyl) APPLY TO SACRUM & BUTTO... BID TOP Last administered on 10:07; Admin Dose 30 APPLIC; Start 04/17/17 at 13:30 Famotidine (Pepcid) 20 mg DAILY PO Last administered on 04/20/17 10:06; Admin Dose 20 MG; Start 04/18/17 at 09:00 Loperamide HCl (Imodium Cap) 2 mg QID PRN PO DIARRHEA; Start 04/17/17 at 18:00 Cholestyramine Resin (Questran Light) 4 gm BID PO Last administered on 20:52; Admin Dose 4 GM; Start 04/19/17 at 09:00 Cephalexin (Keflex) 500 mg QID PO Last administered on 04/20/17 13:30; Admin Dose 500 MG; Start 04/19/17 at 17:00 Pramipexole (Mirapex) 0.5 mg TID PO Last administered on 04/20/17 13:30; Admin Dose 0.5 MG; Start 04/20/17 at 09:30 KELLY DOSS April 20, 2017 15:42
--- NOTE | 2017-04-20 19:00 | CONS ---
Date/Time of Note Date/Time of Note DATE: 04/20/17 TIME: 19:00 Assessment/Plan Assessment/Plan Additional Assessment/Plan Additional Assessment/Plan IMPRESSION: 1. Urinary tract infection. 2. Parkinson's disease. 3. Diarrhea. All cultures are negative so far 4. Seizure. 5. Hypothyroidism. 6. Hyperlipidemia. 7. Syncopal episode. Plan Patient started on Questran Consultation Date/Type/Reason Admit Date/Time April 16, 2017 at 05:02 Type of Consultation: Cardiology Referring Provider: MYLES SCHAFFER MD 24 HR Interval Summary Free Text/Dictation Mild to diarrhea Exam/Review of Systems Vital Signs Vitals Vital Signs Date Time Temp Pulse Resp B/P Pulse Ox O2 Delivery O2 Flow Rate FiO2 04/20/17 08:33 97.3 59 20 140/103 93 Intake and Output 04/19/17 04/19/17 04/20/17 15:00 23:00 07:00 Intake Total 750 ml 240 ml Balance 750 ml 240 ml Exam Constitutional: alert, oriented, well developed Psych: nl mood/affect, no complaints Head: atraumatic, normocephalic Eyes: EOMI, PERRL, nl conjunctiva, nl lids, nl sclera ENMT: nl external ears & nose, nl lips & teeth, nl nasal mucosa & septum Neck: non-tender, supple Respiratory: clear to auscultation, normal air movement Cardiovascular: nl pulses, regular rate and rhythm Gastrointestinal: nl liver, spleen, non-tender, soft Musculoskeletal: nl extremities to inspection, nl gait and stance Extremities: normal pulses Neurological: 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 REPAIRER II-XII 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, nl mental status, nl speech, nl strength Skin: nl turgor, No rash or lesions Lymph: nl lymph nodes Results Result Diagram: 04/18/17 0543 04/19/17 0627 Results 24 hrs Laboratory Tests Test 04/20/17 16:55 Free Thyroxine 1.28 Medications Medications Current Medications Acetaminophen (Tylenol Tab) 650 mg Q6 PRN PO PAIN; Start 04/16/17 at 06:30 Atorvastatin Calcium (Lipitor) 20 mg QHS PO Last administered on 04/19/17 20: 52; Admin Dose 20 MG; Start 04/16/17 at 21:00 Benazepril HCl (Lotensin) 10 mg DAILY PO Last administered on 04/20/17 10:06; Admin Dose 10 MG; Start 04/16/17 at 09:00 Carbidopa/Levodopa (Sinemet (25/ 100)) 1 tab TID PO Last administered on 13:31; Admin Dose 1 TAB; Start 04/16/17 at 09:00 Levetiracetam (Keppra) 750 mg BID PO Last administered on 04/19/17 20:55; Admin Dose 750 MG; Start 04/16/17 at 09:00 Primidone (Mysoline) 50 mg DAILY PO Last administered on 04/19/17 09:24; Admin Dose 50 MG; Start 04/16/17 at 09:00 Sertraline HCl 25 mg 25 mg DAILY PO Last administered on 04/19/17 09:19; Admin Dose 25 MG; Start 04/16/17 at 09:00 Sodium Chloride (NS) 1,000 ml @ 50 mls/hr Q20H IV Last administered on 20:51; Admin Dose 50 MLS/HR; Start 04/16/17 at 06:21 Ondansetron HCl 4 mg 4 mg Q6H PRN IV NAUSEA AND/OR VOMITING; Start 04/16/17 at 06:30 Ceftriaxone Sodium (Rocephin) 50 ml @ 100 mls/hr Q24H IVPB Last administered on 04/20/17 06:23; Admin Dose 100 MLS/HR; Start 04/16/17 at 06:30 Nystatin (Nystatin Powder) 1 applic BID TOP Last administered on 04/20/17 10: 06; Admin Dose 1 APPLIC; Start 04/16/17 at 14:00 Collagenase (Santyl) APPLY TO SACRUM & BUTTO... BID TOP Last administered on 10:07; Admin Dose 30 APPLIC; Start 04/17/17 at 13:30 Famotidine (Pepcid) 20 mg DAILY PO Last administered on 04/20/17 10:06; Admin Dose 20 MG; Start 04/18/17 at 09:00 Loperamide HCl (Imodium Cap) 2 mg QID PRN PO DIARRHEA; Start 04/17/17 at 18:00 Cholestyramine Resin (Questran Light) 4 gm BID PO Last administered on 20:52; Admin Dose 4 GM; Start 04/19/17 at 09:00 Cephalexin (Keflex) 500 mg QID PO Last administered on 04/20/17 17:35; Admin Dose 500 MG; Start 04/19/17 at 17:00 Pramipexole (Mirapex) 0.5 mg TID PO Last administered on 04/20/17 13:30; Admin Dose 0.5 MG; Start 04/20/17 at 09:30 RAYO HUI MD April 20, 2017 19:00
[2017-04-20] MEDS: SOD CHLORIDE 0.9% 1,000 ML IV SCH (19:08)
[2017-04-20 19:13] VITALS: BP 115/55; RESP 20
[2017-04-20] MEDS: ATORVASTATIN 20 MG TAB PO SCH (20:53)
--- NOTE | 2017-04-20 23:54 | PN ---
Date/Time of Note Date/Time of Note DATE: 04/20/17 TIME: 23:53 Assessment/Plan VTE Prophylaxis VTE Prophylaxis Intervention: other Lines/Catheters IV Catheter Type (from Nrs): Peripheral IV Urinary Cath still in place: No Reason Cath still needed: other (indicate) Assessment/Plan Chief Complaint/Hosp Course 1. Syncope episode 2. Hypertension 3. Hyperlipidemia 4. Hypothyroidism 5. Ct scan showed changes in right side of the brain as a Chronic right frontal infarct. 6. Parkinson disease 4. Hs seizure 5. Hs abdominal surgery 6. Anemia 7. Diarrhea PLAN GI OMODIUM ck labs Problems: Subjective 24 Hr Interval Summary Gastrointestinal: no complaints Genitourinary: no complaints Exam/Review of Systems Vital Signs Vitals Vital Signs Date Time Temp Pulse Resp B/P Pulse Ox O2 Delivery O2 Flow Rate FiO2 04/20/17 19:13 97.5 73 20 115/55 96 Intake and Output 04/19/17 04/19/17 04/20/17 15:00 23:00 07:00 Intake Total 750 ml 240 ml Balance 750 ml 240 ml Exam Cardiovascular: regular rate and rhythm Gastrointestinal: bowel sounds (+), soft Results Result Diagram: 04/18/17 0543 04/19/17 0627 Results 24 hrs Laboratory Tests Test 04/20/17 16:55 Free Thyroxine 1.28 Medications Medications Current Medications Acetaminophen (Tylenol Tab) 650 mg Q6 PRN PO PAIN; Start 04/16/17 at 06:30 Atorvastatin Calcium (Lipitor) 20 mg QHS PO Last administered on 04/20/17 20: 53; Admin Dose 20 MG; Start 04/16/17 at 21:00 Benazepril HCl (Lotensin) 10 mg DAILY PO Last administered on 04/20/17 10:06; Admin Dose 10 MG; Start 04/16/17 at 09:00 Carbidopa/Levodopa (Sinemet (25/ 100)) 1 tab TID PO Last administered on 20:53; Admin Dose 1 TAB; Start 04/16/17 at 09:00 Levetiracetam (Keppra) 750 mg BID PO Last administered on 04/20/17 20:53; Admin Dose 750 MG; Start 04/16/17 at 09:00 Primidone (Mysoline) 50 mg DAILY PO Last administered on 04/19/17 09:24; Admin Dose 50 MG; Start 04/16/17 at 09:00 Sertraline HCl 25 mg 25 mg DAILY PO Last administered on 04/19/17 09:19; Admin Dose 25 MG; Start 04/16/17 at 09:00 Sodium Chloride (NS) 1,000 ml @ 50 mls/hr Q20H IV Last administered on 19:08; Admin Dose 50 MLS/HR; Start 04/16/17 at 06:21 Ondansetron HCl 4 mg 4 mg Q6H PRN IV NAUSEA AND/OR VOMITING; Start 04/16/17 at 06:30 Ceftriaxone Sodium (Rocephin) 50 ml @ 100 mls/hr Q24H IVPB Last administered on 04/20/17 06:23; Admin Dose 100 MLS/HR; Start 04/16/17 at 06:30 Nystatin (Nystatin Powder) 1 applic BID TOP Last administered on 04/20/17 20: 54; Admin Dose 1 APPLIC; Start 04/16/17 at 14:00 Collagenase (Santyl) APPLY TO SACRUM & BUTTO... BID TOP Last administered on 20:55; Admin Dose 1 APPLIC; Start 04/17/17 at 13:30 Famotidine (Pepcid) 20 mg DAILY PO Last administered on 04/20/17 10:06; Admin Dose 20 MG; Start 04/18/17 at 09:00 Loperamide HCl (Imodium Cap) 2 mg QID PRN PO DIARRHEA; Start 04/17/17 at 18:00 Cholestyramine Resin (Questran Light) 4 gm BID PO Last administered on 20:53; Admin Dose 4 GM; Start 04/19/17 at 09:00 Cephalexin (Keflex) 500 mg QID PO Last administered on 04/20/17 20:53; Admin Dose 500 MG; Start 04/19/17 at 17:00 Pramipexole (Mirapex) 0.5 mg TID PO Last administered on 04/20/17 21:01; Admin Dose 0.5 MG; Start 04/20/17 at 09:30 MYLES SCHAFFER MD April 20, 2017 23:54
[2017-04-21] MEDS: LEVOTHYROXINE 100 MCG TAB PO SCH (06:09)
[2017-04-21] MEDS: CEFTRIAXONE 1 GM/50 ML (PMX) 50 ML IVPB SCH (06:09)
[2017-04-21 07:47] VITALS: BP 121/58; RESP 19
[2017-04-21] MEDS: CHOLESTYRAMINE (LIGHT) 4 GM PACKET PO SCH ×2 (08:32→20:55)
[2017-04-21] MEDS: PRAMIPEXOLE 1 MG TAB PO SCH ×3 (08:33→20:55)
[2017-04-21] MEDS: FAMOTIDINE 20 MG TAB PO SCH (08:33)
[2017-04-21] MEDS: LEVETIRACETAM 750 MG TAB PO SCH ×2 (08:33→20:54)
[2017-04-21] MEDS: CEPHALEXIN 500 MG CAP PO SCH (08:33)
[2017-04-21] MEDS: SERTRALINE 50 MG TAB PO SCH (08:34)
[2017-04-21] MEDS: BENAZEPRIL 10 MG TAB PO SCH (08:36)
[2017-04-21] MEDS: PRIMIDONE 50 MG TAB PO SCH (08:40)
[2017-04-21] MEDS: CARBIDOPA/LEVODOPA (25/100) TAB PO SCH ×3 (08:40→20:55)
[2017-04-21] MEDS: NYSTATIN 30 GM POWDER BTL TOP SCH ×2 (08:45→20:55)
[2017-04-21] MEDS: COLLAGENASE 30 GM TUBE TOP SCH ×2 (09:00→20:56)
--- NOTE | 2017-04-21 10:28 | CONS ---
Date/Time of Note Date/Time of Note DATE: 04/21/17 TIME: 10:26 Assessment/Plan Assessment/Plan Additional Assessment/Plan IMPRESSION: 1. Urinary tract infection. 2. Parkinson's disease. 3. Diarrhea. All cultures are negative so far 4. Seizure. 5. Hypothyroidism. 6. Hyperlipidemia. 7. Syncopal episode. Plan Patient started on Questran. Diarrhea is under control Consultation Date/Type/Reason Admit Date/Time April 16, 2017 at 05:02 Type of Consultation: Cardiology Referring Provider: MYLES SCHAFFER MD 24 HR Interval Summary Constitutional: improved Exam/Review of Systems Vital Signs Vitals Vital Signs Date Time Temp Pulse Resp B/P Pulse Ox O2 Delivery O2 Flow Rate FiO2 04/21/17 07:47 98.0 67 19 121/58 98 Intake and Output 04/20/17 04/20/17 04/21/17 15:00 23:00 07:00 Intake Total 550 ml 1640 ml 1410 ml Balance 550 ml 1640 ml 1410 ml Exam Constitutional: alert, oriented, well developed Psych: nl mood/affect, no complaints Head: atraumatic, normocephalic Eyes: EOMI, PERRL, nl conjunctiva, nl lids, nl sclera ENMT: nl external ears & nose, nl lips & teeth, nl nasal mucosa & septum Neck: non-tender, supple Respiratory: clear to auscultation, normal air movement Cardiovascular: nl pulses, regular rate and rhythm Gastrointestinal: nl liver, spleen, non-tender, soft Musculoskeletal: nl extremities to inspection, nl gait and stance Extremities: normal pulses Neurological: NECK CUTTER II-XII intact, nl mental status, nl speech, nl strength Skin: nl turgor, No rash or lesions Lymph: nl lymph nodes Results Result Diagram: 04/18/17 0543 04/19/17 0627 Results 24 hrs Laboratory Tests Test 04/20/17 16:55 Free Thyroxine 1.28 Medications Medications Current Medications Acetaminophen (Tylenol Tab) 650 mg Q6 PRN PO PAIN; Start 04/16/17 at 06:30 Atorvastatin Calcium (Lipitor) 20 mg QHS PO Last administered on 04/20/17 20: 53; Admin Dose 20 MG; Start 04/16/17 at 21:00 Benazepril HCl (Lotensin) 10 mg DAILY PO Last administered on 04/21/17 08:36; Admin Dose 10 MG; Start 04/16/17 at 09:00 Carbidopa/Levodopa (Sinemet (25/ 100)) 1 tab TID PO Last administered on 08:40; Admin Dose 1 TAB; Start 04/16/17 at 09:00 Levetiracetam (Keppra) 750 mg BID PO Last administered on 04/21/17 08:33; Admin Dose 750 MG; Start 04/16/17 at 09:00 Primidone (Mysoline) 50 mg DAILY PO Last administered on 04/21/17 08:40; Admin Dose 50 MG; Start 04/16/17 at 09:00 Sertraline HCl 25 mg 25 mg DAILY PO Last administered on 04/21/17 08:34; Admin Dose 25 MG; Start 04/16/17 at 09:00 Sodium Chloride (NS) 1,000 ml @ 50 mls/hr Q20H IV Last administered on 19:08; Admin Dose 50 MLS/HR; Start 04/16/17 at 06:21 Ondansetron HCl 4 mg 4 mg Q6H PRN IV NAUSEA AND/OR VOMITING; Start 04/16/17 at 06:30 Ceftriaxone Sodium (Rocephin) 50 ml @ 100 mls/hr Q24H IVPB Last administered on 04/21/17 06:09; Admin Dose 100 MLS/HR; Start 04/16/17 at 06:30 Nystatin (Nystatin Powder) 1 applic BID TOP Last administered on 04/21/17 08: 45; Admin Dose 1 APPLIC; Start 04/16/17 at 14:00 Collagenase (Santyl) APPLY TO SACRUM & BUTTO... BID TOP Last administered on 20:55; Admin Dose 1 APPLIC; Start 04/17/17 at 13:30 Famotidine (Pepcid) 20 mg DAILY PO Last administered on 04/21/17 08:33; Admin Dose 20 MG; Start 04/18/17 at 09:00 Loperamide HCl (Imodium Cap) 2 mg QID PRN PO DIARRHEA; Start 04/17/17 at 18:00 Cholestyramine Resin (Questran Light) 4 gm BID PO Last administered on 08:32; Admin Dose 4 GM; Start 04/19/17 at 09:00 Cephalexin (Keflex) 500 mg QID PO Last administered on 04/21/17 08:33; Admin Dose 500 MG; Start 04/19/17 at 17:00 Pramipexole (Mirapex) 0.5 mg TID PO Last administered on 04/21/17 08:33; Admin Dose 0.5 MG; Start 04/20/17 at 09:30 RAYO HUI MD April 21, 2017 10:28
--- NOTE | 2017-04-21 13:36 | CONS ---
Date/Time of Note Date/Time of Note DATE: 04/21/17 TIME: 13:35 Assessment/Plan Assessment/Plan Chief Complaint/Hosp Course Imp: 1.syncope-preserved EF by echo 02/11 with Diastolic dysfunction. negative trop >3 2.HTN-somewhat labile but currently reasonable 3.HL 4.H/O seizures 5.Anemia 6.Loose stools/diarrhea-negative c diff 7.Bradycardia to 50's/S. Jeremy while on tele with stable BP Recc: -Tele -Continue Benazepril -Continue statin -Continue abx's and f/u cx data -Follow volume status closely -ongoing GI eval of loose stools -Continue abx's and f/u cx data Problems: Consultation Date/Type/Reason Admit Date/Time April 16, 2017 at 05:02 Initial Consult Date 04/17/2017 Type of Consultation: Cardiology Reason for Consultation syncope Referring Provider: MYLES SCHAFFER MD Exam/Review of Systems Vital Signs Vitals Vital Signs Date Time Temp Pulse Resp B/P Pulse Ox O2 Delivery O2 Flow Rate FiO2 04/21/17 07:47 98.0 67 19 121/58 98 Intake and Output 04/20/17 04/20/17 04/21/17 15:00 23:00 07:00 Intake Total 550 ml 1640 ml 1410 ml Balance 550 ml 1640 ml 1410 ml Exam Review of Systems: CONSTITUTIONAL: No fevers, chills. PULMONARY: mild sob/cough CARDIOVASCULAR: No chest pain/palpitations GASTROINTESTINAL: No nausea/vomiting. GENITOURINARY: No hematuria/dysuria. MUSCULOSKELETAL: No myagias/arthalgias. PSYCHIATRIC: The patient denies depression. NEUROLOGIC: No weakness Constitutional: alert Psych: no complaints Head: normocephalic ENMT: mucosa pink and moist Neck: jvd (9 cm water), supple Respiratory: diminished breath sounds (at bases/B) Cardiovascular: regular rate and rhythm Gastrointestinal: non-tender, soft Musculoskeletal: muscle tone (normal) Extremities: edema (none) Neurological: lethargic Results Result Diagram: 04/18/17 0543 04/19/17 0627 Results 24 hrs Laboratory Tests Test 04/20/17 16:55 Free Thyroxine 1.28 Medications Medications Current Medications Acetaminophen (Tylenol Tab) 650 mg Q6 PRN PO PAIN; Start 04/16/17 at 06:30 Atorvastatin Calcium (Lipitor) 20 mg QHS PO Last administered on 04/20/17 20: 53; Admin Dose 20 MG; Start 04/16/17 at 21:00 Benazepril HCl (Lotensin) 10 mg DAILY PO Last administered on 04/21/17 08:36; Admin Dose 10 MG; Start 04/16/17 at 09:00 Carbidopa/Levodopa (Sinemet (25/ 100)) 1 tab TID PO Last administered on 13:12; Admin Dose 1 TAB; Start 04/16/17 at 09:00 Levetiracetam (Keppra) 750 mg BID PO Last administered on 04/21/17 08:33; Admin Dose 750 MG; Start 04/16/17 at 09:00 Primidone (Mysoline) 50 mg DAILY PO Last administered on 04/21/17 08:40; Admin Dose 50 MG; Start 04/16/17 at 09:00 Sertraline HCl 25 mg 25 mg DAILY PO Last administered on 04/21/17 08:34; Admin Dose 25 MG; Start 04/16/17 at 09:00 Sodium Chloride (NS) 1,000 ml @ 50 mls/hr Q20H IV Last administered on 19:08; Admin Dose 50 MLS/HR; Start 04/16/17 at 06:21 Ondansetron HCl 4 mg 4 mg Q6H PRN IV NAUSEA AND/OR VOMITING; Start 04/16/17 at 06:30 Ceftriaxone Sodium (Rocephin) 50 ml @ 100 mls/hr Q24H IVPB Last administered on 04/21/17 06:09; Admin Dose 100 MLS/HR; Start 04/16/17 at 06:30 Nystatin (Nystatin Powder) 1 applic BID TOP Last administered on 04/21/17 08: 45; Admin Dose 1 APPLIC; Start 04/16/17 at 14:00 Collagenase (Santyl) APPLY TO SACRUM & BUTTO... BID TOP Last administered on 20:55; Admin Dose 1 APPLIC; Start 04/17/17 at 13:30 Famotidine (Pepcid) 20 mg DAILY PO Last administered on 04/21/17 08:33; Admin Dose 20 MG; Start 5/22/17 at 09:00 Loperamide HCl (Imodium Cap) 2 mg QID PRN PO DIARRHEA; Start 04/17/17 at 18:00 Cholestyramine Resin (Questran Light) 4 gm BID PO Last administered on 08:32; Admin Dose 4 GM; Start 04/19/17 at 09:00 Pramipexole (Mirapex) 0.5 mg TID PO Last administered on 04/21/17 13:12; Admin Dose 0.5 MG; Start 04/20/17 at 09:30 KELLY DOSS April 21, 2017 13:36
--- NOTE | 2017-04-21 16:33 | QN ---
Documentation Comment ID consult requested by Dr. Lovett. Dr. Lauren to see pt shortly. Thank you. NABIL ZARATE NP April 21, 2017 16:33
--- NOTE | 2017-04-21 19:11 | PN ---
Date/Time of Note Date/Time of Note DATE: 04/21/17 TIME: 19:10 Assessment/Plan VTE Prophylaxis VTE Prophylaxis Intervention: other Lines/Catheters IV [facility]ter Type (from [facility]): Peripheral IV Urinary Cath still in place: No Assessment/Plan Chief Complaint/Hosp Course 1. Syncope episode 2. Hypertension 3. Hyperlipidemia 4. Hypothyroidism 5. Ct scan showed changes in right side of the brain as a Chronic right frontal infarct. 6. Parkinson disease 4. Hs seizure 5. Hs abdominal surgery 6. Anemia 7. Diarrhea PLAN ID CONSULT Problems: Subjective 24 Hr Interval Summary Gastrointestinal: no complaints Genitourinary: no complaints Exam/Review of Systems Vital Signs Vitals Vital Signs Date Time Temp Pulse Resp B/P Pulse Ox O2 Delivery O2 Flow Rate FiO2 04/21/17 07:47 98.0 67 19 121/58 98 Intake and Output 04/20/17 04/20/17 04/21/17 15:00 23:00 07:00 Intake Total 550 ml 1640 ml 1410 ml Balance 550 ml 1640 ml 1410 ml Exam Respiratory: clear to auscultation Cardiovascular: regular rate and rhythm Gastrointestinal: soft Musculoskeletal: nl extremities to inspection Extremities: normal pulses Results Result Diagram: 04/18/17 0543 04/19/17 0627 Medications Medications Current Medications Acetaminophen (Tylenol Tab) 650 mg Q6 PRN PO PAIN; Start 04/16/17 at 06:30 Atorvastatin Calcium (Lipitor) 20 mg QHS PO Last administered on 04/20/17 20: 53; Admin Dose 20 MG; Start 04/16/17 at 21:00 Benazepril HCl (Lotensin) 10 mg DAILY PO Last administered on 04/21/17 08:36; Admin Dose 10 MG; Start 04/16/17 at 09:00 Carbidopa/Levodopa (Sinemet (25/ 100)) 1 tab TID PO Last administered on 13:12; Admin Dose 1 TAB; Start 04/16/17 at 09:00 Levetiracetam (Keppra) 750 mg BID PO Last administered on 04/21/17 08:33; Admin Dose 750 MG; Start 04/16/17 at 09:00 Primidone (Mysoline) 50 mg DAILY PO Last administered on 04/21/17 08:40; Admin Dose 50 MG; Start 5/20/17 at 09:00 Sertraline HCl 25 mg 25 mg DAILY PO Last administered on 04/21/17 08:34; Admin Dose 25 MG; Start 04/16/17 at 09:00 Sodium Chloride (NS) 1,000 ml @ 50 mls/hr Q20H IV Last administered on 19:08; Admin Dose 50 MLS/HR; Start 04/16/17 at 06:21 Ondansetron HCl (Zofran Inj) 4 mg Q6H PRN IV NAUSEA AND/OR VOMITING; Start at 06:30 Nystatin (Nystatin Powder) 1 applic BID TOP Last administered on 04/21/17 08: 45; Admin Dose 1 APPLIC; Start 04/16/17 at 14:00 Collagenase (Santyl) APPLY TO SACRUM & BUTTO... BID TOP Last administered on 20:55; Admin Dose 1 APPLIC; Start 04/17/17 at 13:30 Famotidine (Pepcid) 20 mg DAILY PO Last administered on 04/21/17 08:33; Admin Dose 20 MG; Start 04/18/17 at 09:00 Loperamide HCl (Imodium Cap) 2 mg QID PRN PO DIARRHEA; Start 04/17/17 at 18:00 Cholestyramine Resin (Questran Light) 4 gm BID PO Last administered on 08:32; Admin Dose 4 GM; Start 04/19/17 at 09:00 Pramipexole 0.5 mg 0.5 mg TID PO Last administered on 04/21/17 13:12; Admin Dose 0.5 MG; Start 04/20/17 at 09:30 Cefotaxime Sodium (Claforan 1gm/50 ml (Pmx)) 50 ml @ 100 mls/hr Q8 IVPB ; Start 04/21/17 at 22:00 MYLES SCHAFFER MD April 21, 2017 19:10
[2017-04-21] MEDS: SOD CHLORIDE 0.9% 1,000 ML IV SCH (20:15)
[2017-04-21 20:40] VITALS: BP 94/59; RESP 17
[2017-04-21] MEDS: ATORVASTATIN 20 MG TAB PO SCH (20:54)
[2017-04-21] MEDS: CEFOTAXIME 1 GM/50 ML (PMX) 50 ML IVPB SCH (22:42)
[2017-04-22] MEDS: CEFOTAXIME 1 GM/50 ML (PMX) 50 ML IVPB SCH ×3 (05:24→21:34)
[2017-04-22 07:29] VITALS: BP 106/43; RESP 18
[2017-04-22] MEDS: PRIMIDONE 50 MG TAB PO SCH (08:08)
[2017-04-22] MEDS: LEVOTHYROXINE 100 MCG TAB PO SCH (08:11)
[2017-04-22] MEDS: CARBIDOPA/LEVODOPA (25/100) TAB PO SCH ×3 (08:11→21:29)
[2017-04-22] MEDS: SERTRALINE 50 MG TAB PO SCH (08:13)
[2017-04-22] MEDS: CHOLESTYRAMINE (LIGHT) 4 GM PACKET PO SCH ×2 (08:13→21:29)
[2017-04-22] MEDS: BENAZEPRIL 10 MG TAB PO SCH (08:13)
[2017-04-22] MEDS: FAMOTIDINE 20 MG TAB PO SCH (08:13)
[2017-04-22] MEDS: LEVETIRACETAM 750 MG TAB PO SCH ×2 (08:13→21:29)
[2017-04-22] MEDS: PRAMIPEXOLE 1 MG TAB PO SCH ×3 (08:13→21:29)
[2017-04-22] MEDS: COLLAGENASE 30 GM TUBE TOP SCH ×2 (08:14→21:30)
[2017-04-22] MEDS: NYSTATIN 30 GM POWDER BTL TOP SCH ×2 (08:14→21:30)
[2017-04-22 08:21] VITALS: BP 146/73; PULSE 82
--- NOTE | 2017-04-22 13:36 | CONS ---
Date/Time of Note Date/Time of Note DATE: 04/22/17 TIME: 13:35 Assessment/Plan Assessment/Plan Chief Complaint/Hosp Course Imp: 1.syncope-preserved EF by echo 02/11 with Diastolic dysfunction. negative trop >3 2.HTN-somewhat labile but currently reasonable 3.HL 4.H/O seizures 5.Anemia 6.Loose stools/diarrhea-negative c diff 7.Bradycardia to 50's/S. Jeremy while on tele with stable BP Recc: -Tele -Continue Benazepril -Continue statin -Continue abx's and f/u cx data -Follow volume status closely -ongoing GI eval of loose stools -Continue abx's and f/u cx data Problems: Consultation Date/Type/Reason Admit Date/Time April 16, 2017 at 05:02 Initial Consult Date 04/17/2017 Type of Consultation: Cardiology Reason for Consultation syncope Referring Provider: MYLES SCHAFFER MD Exam/Review of Systems Vital Signs Vitals Vital Signs Date Time Temp Pulse Resp B/P Pulse Ox O2 Delivery O2 Flow Rate FiO2 04/22/17 08:21 82 146/73 04/22/17 07:29 97.4 18 93 Intake and Output 04/21/17 04/21/17 04/22/17 14:59 22:59 06:59 Intake Total 100 ml 550 ml 1300 ml Balance 100 ml 550 ml 1300 ml Exam Review of Systems: CONSTITUTIONAL: No fevers, chills. PULMONARY: No sob CARDIOVASCULAR: No chest pain/palpitations GASTROINTESTINAL: No nausea/vomiting. GENITOURINARY: No hematuria/dysuria. MUSCULOSKELETAL: No myagias/arthalgias. PSYCHIATRIC: The patient denies depression. NEUROLOGIC: Mild generalized weakness Constitutional: alert Psych: no complaints Head: normocephalic ENMT: mucosa pink and moist Neck: jvd (9 cm water), supple Respiratory: diminished breath sounds (at bases/B) Cardiovascular: regular rate and rhythm Gastrointestinal: non-tender, soft Musculoskeletal: muscle tone (normal) Extremities: edema (none) Neurological: other (No focal deficits) Results Result Diagram: 04/18/17 0543 04/19/17 0627 Medications Medications Current Medications Acetaminophen (Tylenol Tab) 650 mg Q6 PRN PO PAIN; Start 04/16/17 at 06:30 Atorvastatin Calcium (Lipitor) 20 mg QHS PO Last administered on 04/21/17 20: 54; Admin Dose 20 MG; Start 04/16/17 at 21:00 Benazepril HCl (Lotensin) 10 mg DAILY PO Last administered on 04/22/17 08:13; Admin Dose 10 MG; Start 04/16/17 at 09:00 Carbidopa/Levodopa (Sinemet (25/ )) 1 tab TID PO Last administered on 12:30; Admin Dose 1 TAB; Start 04/16/17 at 09:00 Levetiracetam (Keppra) 750 mg BID PO Last administered on 04/22/17 08:13; Admin Dose 750 MG; Start 04/16/17 at 09:00 Primidone (Mysoline) 50 mg DAILY PO Last administered on 04/22/17 08:08; Admin Dose 50 MG; Start 04/16/17 at 09:00 Sertraline HCl 25 mg 25 mg DAILY PO Last administered on 04/22/17 08:13; Admin Dose 25 MG; Start 04/16/17 at 09:00 Sodium Chloride (NS) 1,000 ml @ 50 mls/hr Q20H IV Last administered on 20:15; Admin Dose 50 MLS/HR; Start 04/16/17 at 06:21 Ondansetron HCl (Zofran Inj) 4 mg Q6H PRN IV NAUSEA AND/OR VOMITING; Start at 06:30 Nystatin (Nystatin Powder) 1 applic BID TOP Last administered on 04/22/17 08: 14; Admin Dose 1 APPLIC; Start 04/16/17 at 14:00 Collagenase (Santyl) APPLY TO SACRUM & BUTTO... BID TOP Last administered on 08:14; Admin Dose 1 APPLIC; Start 04/17/17 at 13:30 Famotidine (Pepcid) 20 mg DAILY PO Last administered on 04/22/17 08:13; Admin Dose 20 MG; Start 04/18/17 at 09:00 Loperamide HCl (Imodium Cap) 2 mg QID PRN PO DIARRHEA; Start 04/17/17 at 18:00 Cholestyramine Resin (Questran Light) 4 gm BID PO Last administered on 08:13; Admin Dose 4 GM; Start 04/19/17 at 09:00 Pramipexole 0.5 mg 0.5 mg TID PO Last administered on 04/22/17 12:30; Admin Dose 0.5 MG; Start 04/20/17 at 09:30 Cefotaxime Sodium (Claforan 1gm/50 ml (Pmx)) 50 ml @ 100 mls/hr Q8 IVPB Last administered on 04/22/17 05:24; Admin Dose 100 MLS/HR; Start 04/21/17 at 22:00 KELLY DOSS April 22, 2017 13:36
--- NOTE | 2017-04-22 13:46 | PN ---
Date/Time of Note Date/Time of Note DATE: 04/22/17 TIME: 13:45 Assessment/Plan VTE Prophylaxis VTE Prophylaxis Intervention: SCD's Lines/Catheters IV Catheter Type (from Nrs): Peripheral IV Urinary Cath still in place: No Assessment/Plan Chief Complaint/Hosp Course 1. Syncope episode 2. Hypertension 3. Hyperlipidemia 4. Hypothyroidism 5. Ct scan showed changes in right side of the brain as a Chronic right frontal infarct. 6. Parkinson disease 4. Hs seizure 5. Hs abdominal surgery 6. Anemia 7. Diarrhea Problems: Assessment/Plan 1. Continue telemetry Subjective 24 Hr Interval Summary Constitutional: no complaints Exam/Review of Systems Vital Signs Vitals Vital Signs Date Time Temp Pulse Resp B/P Pulse Ox O2 Delivery O2 Flow Rate FiO2 04/22/17 08:21 82 146/73 04/22/17 07:29 97.4 18 93 Intake and Output 04/21/17 04/21/17 04/22/17 15:00 23:00 07:00 Intake Total 100 ml 550 ml 1300 ml Balance 100 ml 550 ml 1300 ml Exam Constitutional: other (lethargic) Psych: no complaints Head: normocephalic Eyes: nl conjunctiva ENMT: nl external ears & nose Neck: supple Respiratory: clear to auscultation Cardiovascular: regular rate and rhythm Results Result Diagram: 04/18/17 0543 04/19/17 06 Medications Medications Current Medications Acetaminophen (Tylenol Tab) 650 mg Q6 PRN PO PAIN; Start 04/16/17 at 06:30 Atorvastatin Calcium (Lipitor) 20 mg QHS PO Last administered on 04/21/17 20: 54; Admin Dose 20 MG; Start 04/16/17 at 21:00 Benazepril HCl (Lotensin) 10 mg DAILY PO Last administered on 04/22/17 08:13; Admin Dose 10 MG; Start 04/16/17 at 09:00 Carbidopa/Levodopa (Sinemet (25/ )) 1 tab TID PO Last administered on 12:30; Admin Dose 1 TAB; Start 04/16/17 at 09:00 Levetiracetam (Keppra) 750 mg BID PO Last administered on 04/22/17 08:13; Admin Dose 750 MG; Start 04/16/17 at 09:00 Primidone (Mysoline) 50 mg DAILY PO Last administered on 04/22/17 08:08; Admin Dose 50 MG; Start 04/16/17 at 09:00 Sertraline HCl 25 mg 25 mg DAILY PO Last administered on 04/22/17 08:13; Admin Dose 25 MG; Start 04/16/17 at 09:00 Sodium Chloride (NS) 1,000 ml @ 50 mls/hr Q20H IV Last administered on 20:15; Admin Dose 50 MLS/HR; Start 04/16/17 at 06:21 Ondansetron HCl (Zofran Inj) 4 mg Q6H PRN IV NAUSEA AND/OR VOMITING; Start at 06:30 Nystatin (Nystatin Powder) 1 applic BID TOP Last administered on 04/22/17 08: 14; Admin Dose 1 APPLIC; Start 04/16/17 at 14:00 Collagenase (Santyl) APPLY TO SACRUM & BUTTO... BID TOP Last administered on 08:14; Admin Dose 1 APPLIC; Start 04/17/17 at 13:30 Famotidine (Pepcid) 20 mg DAILY PO Last administered on 04/22/17 08:13; Admin Dose 20 MG; Start 04/18/17 at 09:00 Loperamide HCl (Imodium Cap) 2 mg QID PRN PO DIARRHEA; Start 04/17/17 at 18:00 Cholestyramine Resin (Questran Light) 4 gm BID PO Last administered on 08:13; Admin Dose 4 GM; Start 04/19/17 at 09:00 Pramipexole 0.5 mg 0.5 mg TID PO Last administered on 04/22/17 12:30; Admin Dose 0.5 MG; Start 04/20/17 at 09:30 Cefotaxime Sodium (Claforan 1gm/50 ml (Pmx)) 50 ml @ 100 mls/hr Q8 IVPB Last administered on 04/22/17 05:24; Admin Dose 100 MLS/HR; Start 04/21/17 at 22:00 CHRISTY SANCHEZ April 22, 2017 13:46
--- NOTE | 2017-04-22 13:51 | CONS ---
Date/Time of Note Date/Time of Note DATE: 04/22/17 TIME: 13:50 Assessment/Plan Assessment/Plan Chief Complaint/Hosp Course patient seen and examined. full note to follow. Problems: Consultation Date/Type/Reason Admit Date/Time April 16, 2017 at 05:02 Initial Consult Date Type of Consultation: Cardiology Referring Provider: MYLES SCHAFFER MD Exam/Review of Systems Vital Signs Vitals Vital Signs Date Time Temp Pulse Resp B/P Pulse Ox O2 Delivery O2 Flow Rate FiO2 04/22/17 08:21 82 146/73 04/22/17 07:29 97.4 18 93 Intake and Output 04/21/17 04/21/17 04/22/17 15:00 23:00 07:00 Intake Total 100 ml 550 ml 1300 ml Balance 100 ml 550 ml 1300 ml Results Result Diagram: 04/18/17 0543 04/19/17 0627 Medications Medications Current Medications Acetaminophen (Tylenol Tab) 650 mg Q6 PRN PO PAIN; Start 04/16/17 at 06:30 Atorvastatin Calcium (Lipitor) 20 mg QHS PO Last administered on 04/21/17 20: 54; Admin Dose 20 MG; Start 04/16/17 at 21:00 Benazepril HCl (Lotensin) 10 mg DAILY PO Last administered on 04/22/17 08:13; Admin Dose 10 MG; Start 04/16/17 at 09:00 Carbidopa/Levodopa (Sinemet (/ )) 1 tab TID PO Last administered on 12:30; Admin Dose 1 TAB; Start 04/16/17 at 09:00 Levetiracetam (Keppra) 750 mg BID PO Last administered on 04/22/17 08:13; Admin Dose 750 MG; Start 04/16/17 at 09:00 Primidone (Mysoline) 50 mg DAILY PO Last administered on 04/22/17 08:08; Admin Dose 50 MG; Start 04/16/17 at 09:00 Sertraline HCl 25 mg 25 mg DAILY PO Last administered on 04/22/17 08:13; Admin Dose 25 MG; Start 04/16/17 at 09:00 Sodium Chloride (NS) 1,000 ml @ 50 mls/hr Q20H IV Last administered on 20:15; Admin Dose 50 MLS/HR; Start 04/16/17 at 06:21 Ondansetron HCl (Zofran Inj) 4 mg Q6H PRN IV NAUSEA AND/OR VOMITING; Start at 06:30 Nystatin (Nystatin Powder) 1 applic BID TOP Last administered on 04/22/17 08: 14; Admin Dose 1 APPLIC; Start 04/16/17 at 14:00 Collagenase (Santyl) APPLY TO SACRUM & BUTTO... BID TOP Last administered on 08:14; Admin Dose 1 APPLIC; Start 04/17/17 at 13:30 Famotidine (Pepcid) 20 mg DAILY PO Last administered on 04/22/17 08:13; Admin Dose 20 MG; Start 04/18/17 at 09:00 Loperamide HCl (Imodium Cap) 2 mg QID PRN PO DIARRHEA; Start 04/17/17 at 18:00 Cholestyramine Resin (Questran Light) 4 gm BID PO Last administered on 08:13; Admin Dose 4 GM; Start 04/19/17 at 09:00 Pramipexole 0.5 mg 0.5 mg TID PO Last administered on 04/22/17 12:30; Admin Dose 0.5 MG; Start 04/20/17 at 09:30 Cefotaxime Sodium (Claforan 1gm/50 ml (Pmx)) 50 ml @ 100 mls/hr Q8 IVPB Last administered on 04/22/17 13:49; Admin Dose 100 MLS/HR; Start 04/21/17 at 22:00 ИВАН ALCOCER MD April 22, 2017 13:51
--- NOTE | 2017-04-22 15:53 | CONS ---
Date/Time of Note Date/Time of Note DATE: 04/22/17 TIME: 15:52 Assessment/Plan Assessment/Plan Additional Assessment/Plan Additional Assessment/Plan IMPRESSION: 1. Urinary tract infection. 2. Parkinson's disease. 3. Diarrhea. All cultures are negative so far 4. Seizure. 5. Hypothyroidism. 6. Hyperlipidemia. 7. Syncopal episode. Plan Patient started on Questran. Diarrhea is under control Consultation Date/Type/Reason Admit Date/Time April 16, 2017 at 05:02 Type of Consultation: Cardiology Referring Provider: MYLES SCHAFFER MD 24 HR Interval Summary Free Text/Dictation No diarrhea Exam/Review of Systems Vital Signs Vitals Vital Signs Date Time Temp Pulse Resp B/P Pulse Ox O2 Delivery O2 Flow Rate FiO2 04/22/17 08:21 82 146/73 04/22/17 07:29 97.4 18 93 Intake and Output 04/21/17 04/21/17 04/22/17 15:00 23:00 07:00 Intake Total 100 ml 550 ml 1300 ml Balance 100 ml 550 ml 1300 ml Exam Constitutional: alert, oriented, well developed Psych: nl mood/affect, no complaints Head: atraumatic, normocephalic Eyes: EOMI, PERRL, nl conjunctiva, nl lids, nl sclera ENMT: nl external ears & nose, nl lips & teeth, nl nasal mucosa & septum Neck: non-tender, supple Respiratory: clear to auscultation, normal air movement Cardiovascular: nl pulses, regular rate and rhythm Gastrointestinal: nl liver, spleen, non-tender, soft Musculoskeletal: nl extremities to inspection, nl gait and stance Extremities: normal pulses Neurological: [employer] II-XII intact, nl mental status, nl speech, nl strength Skin: nl turgor, No rash or lesions Lymph: nl lymph nodes Results Result Diagram: 04/18/17 0543 04/19/17 0627 Medications Medications Current Medications Acetaminophen (Tylenol Tab) 650 mg Q6 PRN PO PAIN; Start 04/16/17 at 06:30 Atorvastatin Calcium (Lipitor) 20 mg QHS PO Last administered on 04/21/17 20: 54; Admin Dose 20 MG; Start 04/16/17 at 21:00 Benazepril HCl (Lotensin) 10 mg DAILY PO Last administered on 04/22/17 08:13; Admin Dose 10 MG; Start 04/16/17 at 09:00 Carbidopa/Levodopa (Sinemet (25/ 100)) 1 tab TID PO Last administered on 12:30; Admin Dose 1 TAB; Start 04/16/17 at 09:00 Levetiracetam (Keppra) 750 mg BID PO Last administered on 04/22/17 08:13; Admin Dose 750 MG; Start 04/16/17 at 09:00 Primidone (Mysoline) 50 mg DAILY PO Last administered on 04/22/17 08:08; Admin Dose 50 MG; Start 04/16/17 at 09:00 Sertraline HCl 25 mg 25 mg DAILY PO Last administered on 04/22/17 08:13; Admin Dose 25 MG; Start 04/16/17 at 09:00 Sodium Chloride (NS) 1,000 ml @ 50 mls/hr Q20H IV Last administered on 20:15; Admin Dose 50 MLS/HR; Start 04/16/17 at 06:21 Ondansetron HCl (Zofran Inj) 4 mg Q6H PRN IV NAUSEA AND/OR VOMITING; Start at 06:30 Nystatin (Nystatin Powder) 1 applic BID TOP Last administered on 04/22/17 08: 14; Admin Dose 1 APPLIC; Start 04/16/17 at 14:00 Collagenase (Santyl) APPLY TO SACRUM & BUTTO... BID TOP Last administered on 08:14; Admin Dose 1 APPLIC; Start 04/17/17 at 13:30 Famotidine (Pepcid) 20 mg DAILY PO Last administered on 04/22/17 08:13; Admin Dose 20 MG; Start 04/18/17 at 09:00 Loperamide HCl (Imodium Cap) 2 mg QID PRN PO DIARRHEA; Start 04/17/17 at 18:00 Cholestyramine Resin (Questran Light) 4 gm BID PO Last administered on 08:13; Admin Dose 4 GM; Start 04/19/17 at 09:00 Pramipexole 0.5 mg 0.5 mg TID PO Last administered on 04/22/17 12:30; Admin Dose 0.5 MG; Start 04/20/17 at 09:30 Cefotaxime Sodium (Claforan 1gm/50 ml (Pmx)) 50 ml @ 100 mls/hr Q8 IVPB Last administered on 04/22/17t 13:49; Admin Dose 100 MLS/HR; Start 04/21/17 at 22:00 RAYO HUI MD April 22, 2017 15:53
[2017-04-22 20:25] VITALS: BP 122/59; RESP 18
[2017-04-22] MEDS ORDERED: ESTROGENS CONJUGATED 42.5 GM VAG CR VAG SCH (21:00)
[2017-04-22] MEDS: ATORVASTATIN 20 MG TAB PO SCH (21:29)
[2017-04-22] MEDS: ESTROGENS CONJUGATED 42.5 GM VAG CR VAG SCH (21:30)
[2017-04-22] MEDS: SOD CHLORIDE 0.9% 1,000 ML IV SCH (21:34)
[2017-04-23] MEDS: LEVOTHYROXINE 100 MCG TAB PO SCH (06:00)
[2017-04-23] MEDS: CEFOTAXIME 1 GM/50 ML (PMX) 50 ML IVPB SCH ×3 (06:00→21:16)
[2017-04-23 08:14] VITALS: BP 116/74; RESP 18
--- NOTE | 2017-04-23 08:23 | CONS ---
Date/Time of Note Date/Time of Note DATE: 04/23/17 TIME: 08:20 Assessment/Plan Assessment/Plan Chief Complaint/Hosp Course IMPRESSION: 1. Urinary tract infection. 2. Parkinson's disease. 3. Diarrhea. All cultures are negative so far. Improved on questran 4. Seizure. 5. Hypothyroidism. 6. Hyperlipidemia. 7. Syncopal episode. Plan - continue Questran. - Continue abx's and f/u cx data Problems: Consultation Date/Type/Reason Admit Date/Time April 16, 2017 at 05:02 Initial Consult Date Type of Consultation: GI Referring Provider: MYLES SCHAFFER MD 24 HR Interval Summary Free Text/Dictation diarrhea improved, no f/c Constitutional: improved Exam/Review of Systems Vital Signs Vitals Vital Signs Date Time Temp Pulse Resp B/P Pulse Ox O2 Delivery O2 Flow Rate FiO2 04/23/17 08:14 97.6 66 18 116/74 92 Intake and Output 04/22/17 04/22/17 04/23/17 15:00 23:00 07:00 Intake Total 820 ml 800 ml Output Total 500 ml Balance 820 ml 300 ml Exam Constitutional: alert, frail Psych: nl mood/affect, no complaints Head: atraumatic, normocephalic Eyes: EOMI, nl conjunctiva, nl lids, nl sclera ENMT: mucosa pink and moist, nl external ears & nose, nl lips & teeth, nl nasal mucosa & septum Neck: non-tender, supple Respiratory: clear to auscultation, normal air movement Cardiovascular: nl pulses, regular rate and rhythm Gastrointestinal: bowel sounds, non-tender, soft Results Result Diagram: 04/19/17 0627 Medications Medications Current Medications Acetaminophen (Tylenol Tab) 650 mg Q6 PRN PO PAIN; Start 04/16/17 at 06:30 Atorvastatin Calcium (Lipitor) 20 mg QHS PO Last administered on 04/22/17 21: 29; Admin Dose 20 MG; Start 04/16/17 at 21:00 Benazepril HCl (Lotensin) 10 mg DAILY PO Last administered on 04/22/17 08:13; Admin Dose 10 MG; Start 04/16/17 at 09:00 Carbidopa/Levodopa (Sinemet (25/ 100)) 1 tab TID PO Last administered on 21:29; Admin Dose 1 TAB; Start 04/16/17 at 09:00 Levetiracetam (Keppra) 750 mg BID PO Last administered on 04/22/17 21:29; Admin Dose 750 MG; Start 04/16/17 at 09:00 Primidone (Mysoline) 50 mg DAILY PO Last administered on 04/22/17 08:08; Admin Dose 50 MG; Start 04/16/17 at 09:00 Sertraline HCl 25 mg 25 mg DAILY PO Last administered on 04/22/17 08:13; Admin Dose 25 MG; Start 04/16/17 at 09:00 Sodium Chloride (NS) 1,000 ml @ 50 mls/hr Q20H IV Last administered on 21:34; Admin Dose 50 MLS/HR; Start 04/16/17 at 06:21 Ondansetron HCl (Zofran Inj) 4 mg Q6H PRN IV NAUSEA AND/OR VOMITING; Start at 06:30 Nystatin (Nystatin Powder) 1 applic BID TOP Last administered on 04/22/17 21: 30; Admin Dose 1 APPLIC; Start 04/16/17 at 14:00 Collagenase (Santyl) APPLY TO SACRUM & BUTTO... BID TOP Last administered on 21:30; Admin Dose 1 APPLIC; Start 04/17/17 at 13:30 Famotidine (Pepcid) 20 mg DAILY PO Last administered on 04/22/17 08:13; Admin Dose 20 MG; Start 04/18/17 at 09:00 Loperamide HCl (Imodium Cap) 2 mg QID PRN PO DIARRHEA; Start 04/17/17 at 18:00 Cholestyramine Resin (Questran Light) 4 gm BID PO Last administered on 21:29; Admin Dose 4 GM; Start 04/19/17 at 09:00 Pramipexole 0.5 mg 0.5 mg TID PO Last administered on 04/22/17 21:29; Admin Dose 0.5 MG; Start 04/20/17 at 09:30 Cefotaxime Sodium (Claforan 1gm/50 ml (Pmx)) 50 ml @ 100 mls/hr Q8 IVPB Last administered on 04/23/17 06:00; Admin Dose 100 MLS/HR; Start 04/21/17 at 22:00 Estrogens Conjugated (Premarin Vaginal Cr) 0.5 GM MEASURED ... DAILY@21 VAG Last administered on 04/22/17t 21:30; Admin Dose 1 APPLIC; Start 04/22/17 at 21: 00 KAYLYNN CORBETT MD April 23, 2017 08:23
--- NOTE | 2017-04-23 09:11 | CONS ---
Date/Time of Note Date/Time of Note DATE: 04/23/17 TIME: 09:06 Assessment/Plan Assessment/Plan Chief Complaint/Hosp Course 1. UTI 2. pmh of multiple chronic medical problems R: complete 7-10 course of Ctx probiotics further recs based on developments within hospital course. will follow closely with you and adjust recommendations accordingly Thank you once again Dr. Schaffer. Our team is looking forward to working with you increasingly in the future. Problems: Consultation Date/Type/Reason Admit Date/Time April 16, 2017 at 05:02 Date of Consultation: April 22, 2017 Reason for Consultation abx recommendations Referring Provider: MYLES SCHAFFER Hx of Present Illness Thank you Dr. Schaffer for consulting. 89 yo female with pmh of htn, hyperlipidemia, hypothy, cva, admitted with ams and probable uti. She has been on CTX. ucx returned with proteus. Patient is unable to provide a detailed hx at this time. Constitutional: improved Cardiovascular: no complaints Gastrointestinal: no complaints Genitourinary: no complaints Psychological: nl mood/affect, no complaints Past Medical History Medical History: hypothyroid Past Surgical History Past Surgical Hx: other (abdominal surgeries) Social History Alcohol Use: none Smoking Status: Former smoker Drug Use: none Exam/Review of Systems Vital Signs Vitals Vital Signs Date Time Temp Pulse Resp B/P Pulse Ox O2 Delivery O2 Flow Rate FiO2 04/23/17 08:14 97.6 66 18 116/74 92 Intake and Output 04/22/17 04/22/17 04/23/17 15:00 23:00 07:00 Intake Total 820 ml 800 ml Output Total 500 ml Balance 820 ml 300 ml Exam Constitutional: alert, frail, oriented, well developed Psych: nl mood/affect, no complaints Head: atraumatic, normocephalic Eyes: EOMI, PERRL, nl conjunctiva, nl lids, nl sclera ENMT: nl external ears & nose, nl lips & teeth, nl nasal mucosa & septum Respiratory: clear to auscultation, normal air movement Cardiovascular: nl pulses, regular rate and rhythm Gastrointestinal: nl liver, spleen, non-tender, soft Results Result Diagram: 04/19/17 0627 Medications Medications Current Medications Acetaminophen (Tylenol Tab) 650 mg Q6 PRN PO PAIN; Start 04/16/17 at 06:30 Atorvastatin Calcium (Lipitor) 20 mg QHS PO Last administered on 04/22/17 21: 29; Admin Dose 20 MG; Start 04/16/17 at 21:00 Benazepril HCl (Lotensin) 10 mg DAILY PO Last administered on 04/22/17 08:13; Admin Dose 10 MG; Start 04/16/17 at 09:00 Carbidopa/Levodopa (Sinemet (25/ 100)) 1 tab TID PO Last administered on 21:29; Admin Dose 1 TAB; Start 04/16/17 at 09:00 Levetiracetam (Keppra) 750 mg BID PO Last administered on 04/22/17 21:29; Admin Dose 750 MG; Start 04/16/17 at 09:00 Primidone (Mysoline) 50 mg DAILY PO Last administered on 04/22/17 08:08; Admin Dose 50 MG; Start 04/16/17 at 09:00 Sertraline HCl 25 mg 25 mg DAILY PO Last administered on 04/22/17 08:13; Admin Dose 25 MG; Start 04/16/17 at 09:00 Sodium Chloride (NS) 1,000 ml @ 50 mls/hr Q20H IV Last administered on 21:34; Admin Dose 50 MLS/HR; Start 04/16/17 at 06:21 Ondansetron HCl (Zofran Inj) 4 mg Q6H PRN IV NAUSEA AND/OR VOMITING; Start at 06:30 Nystatin (Nystatin Powder) 1 applic BID TOP Last administered on 04/22/17 21: 30; Admin Dose 1 APPLIC; Start 04/16/17 at 14:00 Collagenase (Santyl) APPLY TO SACRUM & BUTTO... BID TOP Last administered on 21:30; Admin Dose 1 APPLIC; Start 04/17/17 at 13:30 Famotidine (Pepcid) 20 mg DAILY PO Last administered on 04/22/17 08:13; Admin Dose 20 MG; Start 04/18/17 at 09:00 Loperamide HCl (Imodium Cap) 2 mg QID PRN PO DIARRHEA; Start 04/17/17 at 18:00 Cholestyramine Resin (Questran Light) 4 gm BID PO Last administered on 21:29; Admin Dose 4 GM; Start 04/19/17 at 09:00 Pramipexole 0.5 mg 0.5 mg TID PO Last administered on 04/22/17 21:29; Admin Dose 0.5 MG; Start 04/20/17 at 09:30 Cefotaxime Sodium (Claforan 1gm/50 ml (Pmx)) 50 ml @ 100 mls/hr Q8 IVPB Last administered on 04/23/17 06:00; Admin Dose 100 MLS/HR; Start 04/21/17 at 22:00 Estrogens Conjugated (Premarin Vaginal Cr) 0.5 GM MEASURED ... DAILY@21 VAG Last administered on 04/22/17 21:30; Admin Dose 1 APPLIC; Start 04/22/17 at 21: 00 ИВАН ALCOCER MD April 23, 2017 09:11
[2017-04-23] MEDS: SERTRALINE 50 MG TAB PO SCH (09:53)
[2017-04-23] MEDS: LEVETIRACETAM 750 MG TAB PO SCH ×2 (09:53→21:14)
[2017-04-23] MEDS: PRAMIPEXOLE 1 MG TAB PO SCH ×3 (09:53→21:15)
[2017-04-23] MEDS: BENAZEPRIL 10 MG TAB PO SCH (09:53)
[2017-04-23] MEDS: FAMOTIDINE 20 MG TAB PO SCH (09:53)
[2017-04-23] MEDS: CARBIDOPA/LEVODOPA (25/100) TAB PO SCH ×3 (09:53→21:15)
[2017-04-23] MEDS: PRIMIDONE 50 MG TAB PO SCH (09:53)
[2017-04-23] MEDS: CHOLESTYRAMINE (LIGHT) 4 GM PACKET PO SCH ×2 (09:54→21:15)
[2017-04-23] MEDS: COLLAGENASE 30 GM TUBE TOP SCH ×2 (09:54→21:16)
[2017-04-23] MEDS: NYSTATIN 30 GM POWDER BTL TOP SCH ×2 (09:55→21:16)
--- NOTE | 2017-04-23 13:00 | PN ---
Date/Time of Note Date/Time of Note DATE: 04/23/17 TIME: 12:59 Assessment/Plan VTE Prophylaxis VTE Prophylaxis Intervention: SCD's Lines/Catheters IV [facility]from [facility]): Peripheral IV Urinary Cath still in place: No Assessment/Plan Chief Complaint/Hosp Course 1. Syncope episode multiple factors 2. Hypertension 3. Hyperlipidemia 4. Hypothyroidism 5. Ct scan showed changes in right side of the brain as a Chronic right frontal infarct. 6. Parkinson disease 4. Hs seizure 5. Hs abdominal surgery 6. Anemia 7. Diarrhea Problems: Assessment/Plan 1. Discharge home Subjective 24 Hr Interval Summary Constitutional: improved, no complaints Exam/Review of Systems Vital Signs Vitals Vital Signs Date Time Temp Pulse Resp B/P Pulse Ox O2 Delivery O2 Flow Rate FiO2 04/23/17 08:14 97.6 66 18 116/74 92 Intake and Output 04/22/17 04/22/17 04/23/17 15:00 23:00 07:00 Intake Total 820 ml 800 ml Output Total 500 ml Balance 820 ml 300 ml Exam Constitutional: alert, oriented Psych: no complaints Head: normocephalic Eyes: nl conjunctiva ENMT: nl external ears & nose Neck: supple Respiratory: clear to auscultation Cardiovascular: regular rate and rhythm Gastrointestinal: soft Results Result Diagram: 04/19/17 06 Medications Medications Current Medications Acetaminophen (Tylenol Tab) 650 mg Q6 PRN PO PAIN; Start 04/16/17 at 06:30 Atorvastatin Calcium (Lipitor) 20 mg QHS PO Last administered on 04/22/17 21: 29; Admin Dose 20 MG; Start 04/16/17 at 21:00 Benazepril HCl (Lotensin) 10 mg DAILY PO Last administered on 04/23/17 09:53; Admin Dose 10 MG; Start 04/16/17 at 09:00 Carbidopa/Levodopa (Sinemet (25/ 100)) 1 tab TID PO Last administered on 09:53; Admin Dose 1 TAB; Start 04/16/17 at 09:00 Levetiracetam (Keppra) 750 mg BID PO Last administered on 04/23/17 09:53; Admin Dose 750 MG; Start 04/16/17 at 09:00 Primidone (Mysoline) 50 mg DAILY PO Last administered on 04/23/17 09:53; Admin Dose 50 MG; Start 04/16/17 at 09:00 Sertraline HCl 25 mg 25 mg DAILY PO Last administered on 04/23/17 09:53; Admin Dose 25 MG; Start 04/16/17 at 09:00 Sodium Chloride (NS) 1,000 ml @ 50 mls/hr Q20H IV Last administered on 21:34; Admin Dose 50 MLS/HR; Start 04/16/17 at 06:21 Ondansetron HCl (Zofran Inj) 4 mg Q6H PRN IV NAUSEA AND/OR VOMITING; Start at 06:30 Nystatin (Nystatin Powder) 1 applic BID TOP Last administered on 04/23/17 09: 55; Admin Dose 1 APPLIC; Start 04/16/17 at 14:00 Collagenase (Santyl) APPLY TO SACRUM & BUTTO... BID TOP Last administered on 09:54; Admin Dose 1 APPLIC; Start 04/17/17 at 13:30 Famotidine (Pepcid) 20 mg DAILY PO Last administered on 04/23/17 09:53; Admin Dose 20 MG; Start 04/18/17 at 09:00 Loperamide HCl (Imodium Cap) 2 mg QID PRN PO DIARRHEA; Start 04/17/17 at 18:00 Cholestyramine Resin (Questran Light) 4 gm BID PO Last administered on 09:54; Admin Dose 4 GM; Start 04/19/17 at 09:00 Pramipexole 0.5 mg 0.5 mg TID PO Last administered on 04/23/17 09:53; Admin Dose 0.5 MG; Start 04/20/17 at 09:30 Cefotaxime Sodium (Claforan 1gm/50 ml (Pmx)) 50 ml @ 100 mls/hr Q8 IVPB Last administered on 04/23/17 06:00; Admin Dose 100 MLS/HR; Start 04/21/17 at 22:00 Estrogens Conjugated (Premarin Vaginal Cr) 0.5 GM MEASURED ... DAILY@21 VAG Last administered on 04/22/17 21:30; Admin Dose 1 APPLIC; Start 04/22/17 at 21: 00 CHRISTY SANCHEZ April 23, 2017 13:00
--- NOTE | 2017-04-23 14:19 | CONS ---
Date/Time of Note Date/Time of Note DATE: 04/23/17 TIME: 13:57 Assessment/Plan Assessment/Plan Chief Complaint/Hosp Course - UTI due to MDR proteus - diarrhea - resolved; c diff negative - syncope - h/o seizure - Parkinson's disease - HTN - HLD - hypothyroidism with subclinical hyperthyroidism (depressed TSH and normal FT4) - normocytic anemia - moderate protein calorie malnutrition Recommendations: - continue Cefotaxime (04/21/2017-04/26/2017); s/p Ceftriaxone (04/16/17-04/21/17) & Keflex - probiotics management d/w pt, RN Elana and Dr. Lauren Problems: Consultation Date/Type/Reason Admit Date/Time April 16, 2017 at 05:02 Initial Consult Date 04/22/17 Type of Consultation: Infectious Disease Reason for Consultation MDR UTI Referring Provider: MYLES SCHAFFER MD 24 HR Interval Summary Free Text/Dictation Denies pain, SOB, n/v/d, dysuria but reports "sometimes I have a hard time going ". Exam/Review of Systems Vital Signs Vitals Vital Signs Date Time Temp Pulse Resp B/P Pulse Ox O2 Delivery O2 Flow Rate FiO2 04/23/17 08:14 97.6 66 18 116/74 92 Intake and Output 04/22/17 04/22/17 04/23/17 15:00 23:00 07:00 Intake Total 820 ml 800 ml Output Total 500 ml Balance 820 ml 300 ml Exam Constitutional: alert, frail, oriented, well developed Psych: nl mood/affect Head: atraumatic, normocephalic Eyes: nl sclera Neck: supple Respiratory: clear to auscultation, normal air movement Cardiovascular: regular rate and rhythm Gastrointestinal: non-tender, soft Genitourinary - Female: other (wearing diaper) Extremities: No cyanosis, No edema Neurological: nl mental status, nl speech Skin: ecchymosis (see nurses notes), other (see nurses notes and photos in chart for details) Results Result Diagram: 04/19/17 0627 Medications Medications Current Medications Acetaminophen (Tylenol Tab) 650 mg Q6 PRN PO PAIN; Start 04/16/17 at 06:30 Atorvastatin Calcium (Lipitor) 20 mg QHS PO Last administered on 04/22/17t 21: 29; Admin Dose 20 MG; Start 04/16/17 at 21:00 Benazepril HCl (Lotensin) 10 mg DAILY PO Last administered on 04/23/17 09:53; Admin Dose 10 MG; Start 04/16/17 at 09:00 Carbidopa/Levodopa (Sinemet (25/ 100)) 1 tab TID PO Last administered on 13:18; Admin Dose 1 TAB; Start 04/16/17 at 09:00 Levetiracetam (Keppra) 750 mg BID PO Last administered on 04/23/17 09:53; Admin Dose 750 MG; Start 04/16/17 at 09:00 Primidone (Mysoline) 50 mg DAILY PO Last administered on 04/23/17 09:53; Admin Dose 50 MG; Start 04/16/17 at 09:00 Sertraline HCl 25 mg 25 mg DAILY PO Last administered on 04/23/17 09:53; Admin Dose 25 MG; Start 04/16/17 at 09:00 Sodium Chloride (NS) 1,000 ml @ 50 mls/hr Q20H IV Last administered on 21:34; Admin Dose 50 MLS/HR; Start 04/16/17 at 06:21 Ondansetron HCl (Zofran Inj) 4 mg Q6H PRN IV NAUSEA AND/OR VOMITING; Start at 06:30 Nystatin (Nystatin Powder) 1 applic BID TOP Last administered on 04/23/17 09: 55; Admin Dose 1 APPLIC; Start 04/16/17 at 14:00 Collagenase (Santyl) APPLY TO SACRUM & BUTTO... BID TOP Last administered on 09:54; Admin Dose 1 APPLIC; Start 04/17/17 at 13:30 Famotidine (Pepcid) 20 mg DAILY PO Last administered on 04/23/17 09:53; Admin Dose 20 MG; Start 04/18/17 at 09:00 Loperamide HCl (Imodium Cap) 2 mg QID PRN PO DIARRHEA; Start 04/17/17 at 18:00 Cholestyramine Resin (Questran Light) 4 gm BID PO Last administered on 09:54; Admin Dose 4 GM; Start 04/19/17 at 09:00 Pramipexole 0.5 mg 0.5 mg TID PO Last administered on 04/23/17 13:18; Admin Dose 0.5 MG; Start 04/20/17 at 09:30 Cefotaxime Sodium (Claforan 1gm/50 ml (Pmx)) 50 ml @ 100 mls/hr Q8 IVPB Last administered on 04/23/17 13:18; Admin Dose 100 MLS/HR; Start 04/21/17 at 22:00 Estrogens Conjugated (Premarin Vaginal Cr) 0.5 GM MEASURED ... DAILY@21 VAG Last administered on 04/22/17 21:30; Admin Dose 1 APPLIC; Start 04/22/17 at 21: 00 NABIL ZARATE NP April 23, 2017 14:09
--- NOTE | 2017-04-23 17:40 | CONS ---
Date/Time of Note Date/Time of Note DATE: 04/23/17 TIME: 17:38 Assessment/Plan Assessment/Plan Additional Assessment/Plan 1. Syncope. 2. Hypertension. 3. Dyslipidemia. 4. Parkinson's disease. 5. Anemia. 6. Hypothyroidism. 7. Seizures. 8. Pneumonia. 9. Cardiomegaly. Hemodynamically stable Encourage Oral intake Avoid AV Noe Medications Continue Benazepril Continue Empiric antibiotics continue Lipitor Continue Levothyroxine Continue Sinemet Continue Keppra Consultation Date/Type/Reason Admit Date/Time April 16, 2017 at 05:02 Constitutional: improved, no complaints Cardiovascular: no complaints Gastrointestinal: no complaints Genitourinary: no complaints Psychological: nl mood/affect Past Medical History Medical History: hypothyroid Past Surgical History Past Surgical Hx: other (abdominal surgeries) Social History Alcohol Use: none Smoking Status: Former smoker Drug Use: none Exam/Review of Systems Vital Signs Vitals Vital Signs Date Time Temp Pulse Resp B/P Pulse Ox O2 Delivery O2 Flow Rate FiO2 04/23/17 08:14 97.6 66 18 116/74 92 Intake and Output 04/22/17 04/22/17 04/23/17 15:00 23:00 07:00 Intake Total 820 ml 800 ml Output Total 500 ml Balance 820 ml 300 ml Exam Constitutional: alert Head: atraumatic, normocephalic Neck: non-tender, supple Respiratory: clear to auscultation Cardiovascular: regular rate and rhythm Gastrointestinal: nl liver, spleen, non-tender, soft Extremities: normal pulses Results Result Diagram: 04/19/17 0627 Medications Medications Current Medications Acetaminophen (Tylenol Tab) 650 mg Q6 PRN PO PAIN; Start 04/16/17 at 06:30 Atorvastatin Calcium (Lipitor) 20 mg QHS PO Last administered on 04/22/17 21: 29; Admin Dose 20 MG; Start 04/16/17 at 21:00 Benazepril HCl (Lotensin) 10 mg DAILY PO Last administered on 04/23/17 09:53; Admin Dose 10 MG; Start 04/16/17 at 09:00 Carbidopa/Levodopa (Sinemet (25/ 100)) 1 tab TID PO Last administered on 13:18; Admin Dose 1 TAB; Start 04/16/17 at 09:00 Levetiracetam (Keppra) 750 mg BID PO Last administered on 04/23/17 09:53; Admin Dose 750 MG; Start 04/16/17 at 09:00 Primidone (Mysoline) 50 mg DAILY PO Last administered on 04/23/17 09:53; Admin Dose 50 MG; Start 04/16/17 at 09:00 Sertraline HCl 25 mg 25 mg DAILY PO Last administered on 04/23/17 09:53; Admin Dose 25 MG; Start 04/16/17 at 09:00 Sodium Chloride (NS) 1,000 ml @ 50 mls/hr Q20H IV Last administered on 21:34; Admin Dose 50 MLS/HR; Start 04/16/17 at 06:21 Ondansetron HCl (Zofran Inj) 4 mg Q6H PRN IV NAUSEA AND/OR VOMITING; Start at 06:30 Nystatin (Nystatin Powder) 1 applic BID TOP Last administered on 04/23/17 09: 55; Admin Dose 1 APPLIC; Start 04/16/17 at 14:00 Collagenase (Santyl) APPLY TO SACRUM & BUTTO... BID TOP Last administered on 09:54; Admin Dose 1 APPLIC; Start 04/17/17 at 13:30 Famotidine (Pepcid) 20 mg DAILY PO Last administered on 04/23/17 09:53; Admin Dose 20 MG; Start 04/18/17 at 09:00 Loperamide HCl (Imodium Cap) 2 mg QID PRN PO DIARRHEA; Start 04/17/17 at 18:00 Cholestyramine Resin (Questran Light) 4 gm BID PO Last administered on 09:54; Admin Dose 4 GM; Start 04/19/17 at 09:00 Pramipexole 0.5 mg 0.5 mg TID PO Last administered on 04/23/17 13:18; Admin Dose 0.5 MG; Start 04/20/17 at 09:30 Cefotaxime Sodium (Claforan 1gm/50 ml (Pmx)) 50 ml @ 100 mls/hr Q8 IVPB Last administered on 04/23/17 13:18; Admin Dose 100 MLS/HR; Start 04/21/17 at 22:00 Estrogens Conjugated (Premarin Vaginal Cr) 0.5 GM MEASURED ... DAILY@21 VAG Last administered on 04/22/17t 21:30; Admin Dose 1 APPLIC; Start 04/22/17 at 21: 00 NAYLA JUAREZ M.D. April 23, 2017 17:40
[2017-04-23] MEDS: SOD CHLORIDE 0.9% 1,000 ML IV SCH ×2 (18:21→21:14)
[2017-04-23 20:34] VITALS: BP 102/50; RESP 18
[2017-04-23] MEDS: ATORVASTATIN 20 MG TAB PO SCH (21:15)
[2017-04-23] MEDS: ESTROGENS CONJUGATED 42.5 GM VAG CR VAG SCH (21:16)
[2017-04-24] MEDS: CEFOTAXIME 1 GM/50 ML (PMX) 50 ML IVPB SCH ×3 (05:30→21:22)
[2017-04-24] MEDS: LEVOTHYROXINE 100 MCG TAB PO SCH (05:30)
[2017-04-24 05:50] LABS: ADD SCAN DIFF NO
[2017-04-24 06:05] LABS: BASOPHILS % 0.4 % (0.0-2.0); EOSINOPHILS # 0.4 10^3/ul (0.0-0.5); EOSINOPHILS % 5.6 % (0.0-7.0); HEMATOCRIT 31.7 % (37.0-47.0); HEMOGLOBIN 9.5 g/dl (12.0-16.0); LYMPHOCYTES # 2.7 10^3/ul (0.8-2.9); LYMPHOCYTES % 36.6 % (15.0-51.0); MONOCYTE # 0.8 10^3/ul (0.3-0.9); MONOCYTES % 10.7 % (0.0-11.0); NEUTROPHIL # 3.4 10^3/ul (1.6-7.5); NEUTROPHILS % 46.2 % (39.0-77.0); PLATELET COUNT 264 10^3/UL (140-415); RED BLOOD COUNT 3.17 10^6/ul (4.20-5.40); RED CELL DISTRIBUTION WIDTH 16.3 % (11.5-14.5); WHITE BLOOD COUNT 7.4 10^3/ul (4.8-10.8)
[2017-04-24 06:21] LABS: CALCIUM 8.4 mg/dl (8.4-10.2); CREATININE 0.71 mg/dl (0.44-1.00)
[2017-04-24 07:34] VITALS: BP 108/77; RESP 18
[2017-04-24] MEDS: PRIMIDONE 50 MG TAB PO SCH (09:00)
[2017-04-24] MEDS: CHOLESTYRAMINE (LIGHT) 4 GM PACKET PO SCH ×3 (09:00→21:14)
[2017-04-24] MEDS: SERTRALINE 50 MG TAB PO SCH (09:00)
[2017-04-24] MEDS: NYSTATIN 30 GM POWDER BTL TOP SCH ×2 (09:01→21:19)
[2017-04-24] MEDS: LEVETIRACETAM 750 MG TAB PO SCH ×2 (09:01→21:15)
[2017-04-24] MEDS: CARBIDOPA/LEVODOPA (25/100) TAB PO SCH ×3 (09:01→21:15)
[2017-04-24] MEDS: BENAZEPRIL 10 MG TAB PO SCH (09:01)
[2017-04-24] MEDS: FAMOTIDINE 20 MG TAB PO SCH (09:01)
[2017-04-24] MEDS: PRAMIPEXOLE 1 MG TAB PO SCH ×3 (09:01→21:15)
[2017-04-24] MEDS: COLLAGENASE 30 GM TUBE TOP SCH ×2 (09:02→21:20)
[2017-04-24] MEDS: SOD CHLORIDE 0.9% 1,000 ML IV SCH ×2 (14:21→21:23)
--- NOTE | 2017-04-24 14:51 | CONS ---
Date/Time of Note Date/Time of Note DATE: 04/24/17 TIME: 14:48 Assessment/Plan Assessment/Plan Chief Complaint/Hosp Course IMPRESSION: 1. Urinary tract infection. 2. Parkinson's disease. 3. Diarrhea. All cultures are negative so far. Improved on questran 4. Seizure. 5. Hypothyroidism. 6. Hyperlipidemia. 7. Syncopal episode. Plan - continue Questran. - Continue abx's and f/u cx data Problems: Consultation Date/Type/Reason Admit Date/Time April 16, 2017 at 05:02 Type of Consultation: GI Referring Provider: MYLES SCHAFFER MD 24 HR Interval Summary Free Text/Dictation No n/v Constitutional: disoriented Exam/Review of Systems Vital Signs Vitals Vital Signs Date Time Temp Pulse Resp B/P Pulse Ox O2 Delivery O2 Flow Rate FiO2 04/24/17 07:34 98.1 69 18 108/77 91 Intake and Output 04/23/17 04/23/17 04/24/17 15:00 23:00 07:00 Intake Total 50 ml 1420 ml 950 ml Output Total 3 ml Balance 50 ml 1420 ml 947 ml Exam Constitutional: frail Psych: confusion Head: atraumatic, normocephalic Eyes: EOMI, nl conjunctiva, nl lids, nl sclera ENMT: mucosa pink and moist, nl external ears & nose, nl lips & teeth, nl nasal mucosa & septum Neck: non-tender, supple Respiratory: clear to auscultation, normal air movement Cardiovascular: nl pulses, regular rate and rhythm Gastrointestinal: bowel sounds, non-tender, soft Results Result Diagram: 04/24/17 0511 04/24/17 0511 Results 24 hrs Laboratory Tests Test 04/24/17 05:11 White Blood Count 7.4 Red Blood Count 3.17 L Hemoglobin 9.5 L Hematocrit 31.7 L Mean Corpuscular Volume 100.0 Mean Corpuscular Hemoglobin 30.0 Mean Corpuscular Hemoglobin Concent 30.0 L Red Cell Distribution Width 16.3 H Platelet Count 264 # Mean Platelet Volume 10.0 Neutrophils % 46.2 Lymphocytes % 36.6 Monocytes % 10.7 Eosinophils % 5.6 Basophils % 0.4 Nucleated Red Blood Cells % 0.0 Neutrophils # 3.4 Lymphocytes # 2.7 Monocytes # 0.8 Eosinophils # 0.4 Basophils # 0.0 Nucleated Red Blood Cells # 0.0 Sodium Level 139 Potassium Level 5.0 Chloride Level 106 Carbon Dioxide Level 26 Anion Gap 12 Blood Urea Nitrogen 23 H Creatinine 0.71 Glucose Level 75 Calcium Level 8.4 Medications Medications Current Medications Acetaminophen (Tylenol Tab) 650 mg Q6 PRN PO PAIN; Start 04/16/17 at 06:30 Atorvastatin Calcium (Lipitor) 20 mg QHS PO Last administered on 04/23/17 21: 15; Admin Dose 20 MG; Start 04/16/17 at 21:00 Benazepril HCl (Lotensin) 10 mg DAILY PO Last administered on 04/24/17 09:01; Admin Dose 10 MG; Start 04/16/17 at 09:00 Carbidopa/Levodopa (Sinemet (25/ )) 1 tab TID PO Last administered on 14:02; Admin Dose 1 TAB; Start 04/16/17 at 09:00 Levetiracetam (Keppra) 750 mg BID PO Last administered on 04/24/17 09:01; Admin Dose 750 MG; Start 04/16/17 at 09:00 Primidone (Mysoline) 50 mg DAILY PO Last administered on 04/24/17 09:00; Admin Dose 50 MG; Start 04/16/17 at 09:00 Sertraline HCl 25 mg 25 mg DAILY PO Last administered on 04/24/17 09:00; Admin Dose 25 MG; Start 04/16/17 at 09:00 Sodium Chloride (NS) 1,000 ml @ 50 mls/hr Q20H IV Last administered on 21:14; Admin Dose 50 MLS/HR; Start 04/16/17 at 06:21 Ondansetron HCl (Zofran Inj) 4 mg Q6H PRN IV NAUSEA AND/OR VOMITING; Start at 06:30 Nystatin (Nystatin Powder) 1 applic BID TOP Last administered on 04/24/17 09: 01; Admin Dose 1 APPLIC; Start 04/16/17 at 14:00 Collagenase (Santyl) APPLY TO SACRUM & BUTTO... BID TOP Last administered on 09:02; Admin Dose 1 APPLIC; Start 04/17/17 at 13:30 Famotidine (Pepcid) 20 mg DAILY PO Last administered on 04/24/17 09:01; Admin Dose 20 MG; Start 04/18/17 at 09:00 Loperamide HCl (Imodium Cap) 2 mg QID PRN PO DIARRHEA; Start 04/17/17 at 18:00 Cholestyramine Resin (Questran Light) 4 gm BID PO Last administered on 21:15; Admin Dose 4 GM; Start 04/19/17 at 09:00 Pramipexole 0.5 mg 0.5 mg TID PO Last administered on 04/24/17 14:02; Admin Dose 0.5 MG; Start 04/20/17 at 09:30 Cefotaxime Sodium (Claforan 1gm/50 ml (Pmx)) 50 ml @ 100 mls/hr Q8 IVPB Last administered on 04/24/17 14:02; Admin Dose 100 MLS/HR; Start 04/21/17 at 22:00 Estrogens Conjugated (Premarin Vaginal Cr) 0.5 GM MEASURED ... DAILY@21 VAG Last administered on 04/23/17 21:16; Admin Dose 1 APPLIC; Start 04/22/17 at 21: 00 KAYLYNN CORBETT MD April 24, 2017 14:51
--- NOTE | 2017-04-24 15:57 | CONS ---
Date/Time of Note Date/Time of Note DATE: 04/24/17 TIME: 15:57 Assessment/Plan Assessment/Plan Additional Assessment/Plan 1. Syncope. 2. Hypertension. 3. Dyslipidemia. 4. Parkinson's disease. 5. Anemia. 6. Hypothyroidism. 7. Seizures. 8. Pneumonia. 9. Cardiomegaly. Hemodynamically stable Encourage Oral intake Avoid AV Noe Medications Continue Benazepril Continue Empiric antibiotics continue Lipitor Continue Levothyroxine Continue Sinemet Continue Keppra Consultation Date/Type/Reason Admit Date/Time April 16, 2017 at 05:02 Type of Consultation: GI Referring Provider: MYLES SCHAFFER MD Exam/Review of Systems Vital Signs Vitals Vital Signs Date Time Temp Pulse Resp B/P Pulse Ox O2 Delivery O2 Flow Rate FiO2 04/24/17 07:34 98.1 69 18 108/77 91 Intake and Output 04/23/17 04/23/17 04/24/17 15:00 23:00 07:00 Intake Total 50 ml 1420 ml 950 ml Output Total 3 ml Balance 50 ml 1420 ml 947 ml Exam Constitutional: alert Head: atraumatic, normocephalic Neck: non-tender, supple Respiratory: clear to auscultation Cardiovascular: regular rate and rhythm Gastrointestinal: nl liver, spleen, non-tender, soft Extremities: normal pulses Results Result Diagram: 04/24/17 0511 04/24/17 0511 Results 24 hrs Laboratory Tests Test 04/24/17 05:11 White Blood Count 7.4 Red Blood Count 3.17 L Hemoglobin 9.5 L Hematocrit 31.7 L Mean Corpuscular Volume 100.0 Mean Corpuscular Hemoglobin 30.0 Mean Corpuscular Hemoglobin Concent 30.0 L Red Cell Distribution Width 16.3 H Platelet Count 264 # Mean Platelet Volume 10.0 Neutrophils % 46.2 Lymphocytes % 36.6 Monocytes % 10.7 Eosinophils % 5.6 Basophils % 0.4 Nucleated Red Blood Cells % 0.0 Neutrophils # 3.4 Lymphocytes # 2.7 Monocytes # 0.8 Eosinophils # 0.4 Basophils # 0.0 Nucleated Red Blood Cells # 0.0 Sodium Level 139 Potassium Level 5.0 Chloride Level 106 Carbon Dioxide Level 26 Anion Gap 12 Blood Urea Nitrogen 23 H Creatinine 0.71 Glucose Level 75 Calcium Level 8.4 Medications Medications Current Medications Acetaminophen (Tylenol Tab) 650 mg Q6 PRN PO PAIN; Start 04/16/17 at 06:30 Atorvastatin Calcium (Lipitor) 20 mg QHS PO Last administered on 04/23/17 21: 15; Admin Dose 20 MG; Start 04/16/17 at 21:00 Benazepril HCl (Lotensin) 10 mg DAILY PO Last administered on 04/24/17 09:01; Admin Dose 10 MG; Start 04/16/17 at 09:00 Carbidopa/Levodopa (Sinemet (25/ 100)) 1 tab TID PO Last administered on 14:02; Admin Dose 1 TAB; Start 04/16/17 at 09:00 Levetiracetam (Keppra) 750 mg BID PO Last administered on 04/24/17 09:01; Admin Dose 750 MG; Start 04/16/17 at 09:00 Primidone (Mysoline) 50 mg DAILY PO Last administered on 04/24/17 09:00; Admin Dose 50 MG; Start 04/16/17 at 09:00 Sertraline HCl 25 mg 25 mg DAILY PO Last administered on 04/24/17 09:00; Admin Dose 25 MG; Start 04/16/17 at 09:00 Sodium Chloride (NS) 1,000 ml @ 50 mls/hr Q20H IV Last administered on 21:14; Admin Dose 50 MLS/HR; Start 04/16/17 at 06:21 Ondansetron HCl (Zofran Inj) 4 mg Q6H PRN IV NAUSEA AND/OR VOMITING; Start at 06:30 Nystatin (Nystatin Powder) 1 applic BID TOP Last administered on 04/24/17 09: 01; Admin Dose 1 APPLIC; Start 04/16/17 at 14:00 Collagenase (Santyl) APPLY TO SACRUM & BUTTO... BID TOP Last administered on 09:02; Admin Dose 1 APPLIC; Start 04/17/17 at 13:30 Famotidine (Pepcid) 20 mg DAILY PO Last administered on 04/24/17 09:01; Admin Dose 20 MG; Start 04/18/17 at 09:00 Loperamide HCl (Imodium Cap) 2 mg QID PRN PO DIARRHEA; Start 04/17/17 at 18:00 Cholestyramine Resin (Questran Light) 4 gm BID PO Last administered on 21:15; Admin Dose 4 GM; Start 04/19/17 at 09:00 Pramipexole 0.5 mg 0.5 mg TID PO Last administered on 04/24/17 14:02; Admin Dose 0.5 MG; Start 04/20/17 at 09:30 Cefotaxime Sodium (Claforan 1gm/50 ml (Pmx)) 50 ml @ 100 mls/hr Q8 IVPB Last administered on 04/24/17 14:02; Admin Dose 100 MLS/HR; Start 04/21/17 at 22:00 Estrogens Conjugated (Premarin Vaginal Cr) 0.5 GM MEASURED ... DAILY@21 VAG Last administered on 04/23/17 21:16; Admin Dose 1 APPLIC; Start 04/22/17 at 21: 00 NAYLA JUAREZ M.D. April 24, 2017 15:57
--- NOTE | 2017-04-24 16:58 | PN ---
Date/Time of Note Date/Time of Note DATE: 04/24/17 TIME: 16:57 Assessment/Plan VTE Prophylaxis VTE Prophylaxis Intervention: other Lines/Catheters IV [facility]ter Type (from [facility] Peripheral IV Urinary Cath still in place: No Assessment/Plan Chief Complaint/Hosp Course 1. Syncope episode 2. Hypertension 3. Hyperlipidemia 4. Hypothyroidism 5. Ct scan showed changes in right side of the brain as a Chronic right frontal infarct. 6. Parkinson disease 4. Hs seizure 5. Hs abdominal surgery 6. Anemia 7. Diarrhea PLAN ID CONSULT ANTIBIOTIC Problems: Subjective 24 Hr Interval Summary Cardiovascular: no complaints Gastrointestinal: no complaints Genitourinary: no complaints Exam/Review of Systems Vital Signs Vitals Vital Signs Date Time Temp Pulse Resp B/P Pulse Ox O2 Delivery O2 Flow Rate FiO2 04/24/17 07:34 98.1 69 18 108/77 91 Intake and Output 04/23/17 04/23/17 04/24/17 15:00 23:00 07:00 Intake Total 50 ml 1420 ml 950 ml Output Total 3 ml Balance 50 ml 1420 ml 947 ml Exam Neck: supple Respiratory: clear to auscultation Cardiovascular: regular rate and rhythm Gastrointestinal: soft Genitourinary - Female: nl adnexae Musculoskeletal: nl extremities to inspection Results Result Diagram: 04/24/17 0511 04/24/17 0511 Results 24 hrs Laboratory Tests Test 04/24/17 05:11 White Blood Count 7.4 Red Blood Count 3.17 L Hemoglobin 9.5 L Hematocrit 31.7 L Mean Corpuscular Volume 100.0 Mean Corpuscular Hemoglobin 30.0 Mean Corpuscular Hemoglobin Concent 30.0 L Red Cell Distribution Width 16.3 H Platelet Count 264 # Mean Platelet Volume 10.0 Neutrophils % 46.2 Lymphocytes % 36.6 Monocytes % 10.7 Eosinophils % 5.6 Basophils % 0.4 Nucleated Red Blood Cells % 0.0 Neutrophils # 3.4 Lymphocytes # 2.7 Monocytes # 0.8 Eosinophils # 0.4 Basophils # 0.0 Nucleated Red Blood Cells # 0.0 Sodium Level 139 Potassium Level 5.0 Chloride Level 106 Carbon Dioxide Level 26 Anion Gap 12 Blood Urea Nitrogen 23 H Creatinine 0.71 Glucose Level 75 Calcium Level 8.4 Medications Medications Current Medications Acetaminophen (Tylenol Tab) 650 mg Q6 PRN PO PAIN; Start 04/16/17 at 06:30 Atorvastatin Calcium (Lipitor) 20 mg QHS PO Last administered on 04/23/17 21: 15; Admin Dose 20 MG; Start 04/16/17 at 21:00 Benazepril HCl (Lotensin) 10 mg DAILY PO Last administered on 04/24/17 09:01; Admin Dose 10 MG; Start 04/16/17 at 09:00 Carbidopa/Levodopa (Sinemet (25/ 100)) 1 tab TID PO Last administered on 14:02; Admin Dose 1 TAB; Start 04/16/17 at 09:00 Levetiracetam (Keppra) 750 mg BID PO Last administered on 04/24/17 09:01; Admin Dose 750 MG; Start 04/16/17 at 09:00 Primidone (Mysoline) 50 mg DAILY PO Last administered on 04/24/17 09:00; Admin Dose 50 MG; Start 04/16/17 at 09:00 Sertraline HCl 25 mg 25 mg DAILY PO Last administered on 04/24/17 09:00; Admin Dose 25 MG; Start 04/16/17 at 09:00 Sodium Chloride (NS) 1,000 ml @ 50 mls/hr Q20H IV Last administered on 21:14; Admin Dose 50 MLS/HR; Start 04/16/17 at 06:21 Ondansetron HCl (Zofran Inj) 4 mg Q6H PRN IV NAUSEA AND/OR VOMITING; Start at 06:30 Nystatin (Nystatin Powder) 1 applic BID TOP Last administered on 04/24/17 09: 01; Admin Dose 1 APPLIC; Start 04/16/17 at 14:00 Collagenase (Santyl) APPLY TO SACRUM & BUTTO... BID TOP Last administered on 09:02; Admin Dose 1 APPLIC; Start 04/17/17 at 13:30 Famotidine (Pepcid) 20 mg DAILY PO Last administered on 04/24/17 09:01; Admin Dose 20 MG; Start 04/18/17 at 09:00 Loperamide HCl (Imodium Cap) 2 mg QID PRN PO DIARRHEA; Start 04/17/17 at 18:00 Cholestyramine Resin (Questran Light) 4 gm BID PO Last administered on 21:15; Admin Dose 4 GM; Start 04/19/17 at 09:00 Pramipexole 0.5 mg 0.5 mg TID PO Last administered on 04/24/17 14:02; Admin Dose 0.5 MG; Start 04/20/17 at 09:30 Cefotaxime Sodium (Claforan 1gm/50 ml (Pmx)) 50 ml @ 100 mls/hr Q8 IVPB Last administered on 04/24/17 14:02; Admin Dose 100 MLS/HR; Start 04/21/17 at 22:00 Estrogens Conjugated (Premarin Vaginal Cr) 0.5 GM MEASURED ... DAILY@21 VAG Last administered on 04/23/17 21:16; Admin Dose 1 APPLIC; Start 04/22/17 at 21: 00 MYLES SCHAFFER MD April 24, 2017 16:58
[2017-04-24 20:40] VITALS: BP 127/50; RESP 18
[2017-04-24] MEDS: ATORVASTATIN 20 MG TAB PO SCH (21:15)
[2017-04-24] MEDS: ESTROGENS CONJUGATED 42.5 GM VAG CR VAG SCH (21:20)
[2017-04-25] MEDS: CEFOTAXIME 1 GM/50 ML (PMX) 50 ML IVPB SCH ×3 (06:23→21:20)
[2017-04-25] MEDS: LEVOTHYROXINE 100 MCG TAB PO SCH (06:23)
[2017-04-25 08:10] VITALS: BP 118/53; RESP 16
[2017-04-25] MEDS: COLLAGENASE 30 GM TUBE TOP SCH ×2 (09:00→21:14)
[2017-04-25] MEDS: BENAZEPRIL 10 MG TAB PO SCH (09:00)
[2017-04-25] MEDS: CARBIDOPA/LEVODOPA (25/100) TAB PO SCH ×3 (09:34→21:12)
[2017-04-25] MEDS: SERTRALINE 50 MG TAB PO SCH (09:34)
[2017-04-25] MEDS: CHOLESTYRAMINE (LIGHT) 4 GM PACKET PO SCH ×2 (09:34→21:12)
[2017-04-25] MEDS: PRAMIPEXOLE 1 MG TAB PO SCH ×3 (09:34→21:19)
[2017-04-25] MEDS: LEVETIRACETAM 750 MG TAB PO SCH ×2 (09:36→21:12)
[2017-04-25] MEDS: PRIMIDONE 50 MG TAB PO SCH (09:36)
[2017-04-25] MEDS: NYSTATIN 30 GM POWDER BTL TOP SCH ×2 (09:36→21:13)
[2017-04-25] MEDS: FAMOTIDINE 20 MG TAB PO SCH (09:36)
[2017-04-25] MEDS: SOD CHLORIDE 0.9% 1,000 ML IV SCH ×2 (10:21→21:00)
--- NOTE | 2017-04-25 11:10 | CONS ---
Date/Time of Note Date/Time of Note DATE: 04/24/17 TIME: 11:09 Assessment/Plan Assessment/Plan Chief Complaint/Hosp Course 1. UTI 2. pmh of multiple chronic medical problems R: complete 7-10 course of Ctx probiotics further recs based on developments within hospital course. will follow closely with you and adjust recommendations accordingly Thank you once again Dr. Schaffer. Our team is looking forward to working with you increasingly in the future. Problems: Consultation Date/Type/Reason Admit Date/Time April 16, 2017 at 05:02 Type of Consultation: GI Referring Provider: MYLES SCHAFFER MD Exam/Review of Systems Vital Signs Vitals Vital Signs Date Time Temp Pulse Resp B/P Pulse Ox O2 Delivery O2 Flow Rate FiO2 04/25/17 08:10 98.0 63 16 118/53 94 Intake and Output 04/24/17 04/24/17 04/25/17 15:00 23:00 07:00 Intake Total 50 ml 930 ml 600 ml Balance 50 ml 930 ml 600 ml Exam Constitutional: alert, oriented, well developed Psych: nl mood/affect, no complaints Eyes: EOMI, PERRL, nl conjunctiva, nl lids, nl sclera Respiratory: clear to auscultation, normal air movement Cardiovascular: nl pulses, regular rate and rhythm Gastrointestinal: nl liver, spleen, non-tender, soft Results Result Diagram: 04/24/17 0511 04/24/17 0511 Medications Medications Current Medications Acetaminophen (Tylenol Tab) 650 mg Q6 PRN PO PAIN; Start 04/16/17 at 06:30 Atorvastatin Calcium (Lipitor) 20 mg QHS PO Last administered on 04/24/17 21: 15; Admin Dose 20 MG; Start 04/16/17 at 21:00 Benazepril HCl (Lotensin) 10 mg DAILY PO Last administered on 04/24/17 09:01; Admin Dose 10 MG; Start 04/16/17 at 09:00 Carbidopa/Levodopa (Sinemet (25/ 100)) 1 tab TID PO Last administered on 09:34; Admin Dose 1 TAB; Start 04/16/17 at 09:00 Levetiracetam (Keppra) 750 mg BID PO Last administered on 04/25/17 09:36; Admin Dose 750 MG; Start 04/16/17 at 09:00 Primidone (Mysoline) 50 mg DAILY PO Last administered on 04/25/17 09:36; Admin Dose 50 MG; Start 04/16/17 at 09:00 Sertraline HCl 25 mg 25 mg DAILY PO Last administered on 04/25/17 09:34; Admin Dose 25 MG; Start 04/16/17 at 09:00 Sodium Chloride (NS) 1,000 ml @ 50 mls/hr Q20H IV Last administered on 21:23; Admin Dose 50 MLS/HR; Start 04/16/17 at 06:21 Ondansetron HCl (Zofran Inj) 4 mg Q6H PRN IV NAUSEA AND/OR VOMITING; Start at 06:30 Nystatin (Nystatin Powder) 1 applic BID TOP Last administered on 04/25/17 09: 36; Admin Dose 1 APPLIC; Start 04/16/17 at 14:00 Collagenase (Santyl) APPLY TO SACRUM & BUTTO... BID TOP Last administered on 21:20; Admin Dose 1 APPLIC; Start 04/17/17 at 13:30 Famotidine (Pepcid) 20 mg DAILY PO Last administered on 04/25/17 09:36; Admin Dose 20 MG; Start 04/18/17 at 09:00 Loperamide HCl (Imodium Cap) 2 mg QID PRN PO DIARRHEA; Start 04/17/17 at 18:00 Cholestyramine Resin (Questran Light) 4 gm BID PO Last administered on 09:34; Admin Dose 4 GM; Start 04/19/17 at 09:00 Pramipexole 0.5 mg 0.5 mg TID PO Last administered on 04/25/17 09:34; Admin Dose 0.5 MG; Start 04/20/17 at 09:30 Cefotaxime Sodium (Claforan 1gm/50 ml (Pmx)) 50 ml @ 100 mls/hr Q8 IVPB Last administered on 04/25/17 06:23; Admin Dose 100 MLS/HR; Start 04/21/17 at 22:00 Estrogens Conjugated (Premarin Vaginal Cr) 0.5 GM MEASURED ... DAILY@21 VAG Last administered on 04/24/17 21:20; Admin Dose 1 APPLIC; Start 04/22/17 at 21: 00 ИВАН ALCOCER MD April 25, 2017 11:10
--- NOTE | 2017-04-25 12:58 | CONS ---
Date/Time of Note Date/Time of Note DATE: 04/25/17 TIME: 12:57 Assessment/Plan Assessment/Plan Additional Assessment/Plan 1. Syncope. 2. Hypertension. 3. Dyslipidemia. 4. Parkinson's disease. 5. Anemia. 6. Hypothyroidism. 7. Seizures. 8. Pneumonia. 9. Cardiomegaly. Hemodynamically stable Encourage Oral intake Avoid AV Noe Medications Continue Benazepril Continue Empiric antibiotics continue Lipitor Continue Levothyroxine Continue Sinemet Continue Keppra Consultation Date/Type/Reason Admit Date/Time April 16, 2017 at 05:02 Type of Consultation: GI Referring Provider: MYLES SCHAFFER MD Exam/Review of Systems Vital Signs Vitals Vital Signs Date Time Temp Pulse Resp B/P Pulse Ox O2 Delivery O2 Flow Rate FiO2 04/25/17 08:10 98.0 63 16 118/53 94 Intake and Output 04/24/17 04/24/17 04/25/17 15:00 23:00 07:00 Intake Total 50 ml 930 ml 600 ml Balance 50 ml 930 ml 600 ml Exam Constitutional: alert Head: atraumatic, normocephalic Neck: non-tender, supple Respiratory: clear to auscultation Cardiovascular: regular rate and rhythm Gastrointestinal: nl liver, spleen, non-tender, soft Extremities: normal pulses Results Result Diagram: 04/24/1751004/24/17 05 Medications Medications Current Medications Acetaminophen (Tylenol Tab) 650 mg Q6 PRN PO PAIN; Start 04/16/17 at 06:30 Atorvastatin Calcium (Lipitor) 20 mg QHS PO Last administered on 04/24/17 21: 15; Admin Dose 20 MG; Start 04/16/17 at 21:00 Benazepril HCl (Lotensin) 10 mg DAILY PO Last administered on 04/24/17 09:01; Admin Dose 10 MG; Start 04/16/17 at 09:00 Carbidopa/Levodopa (Sinemet (25/ 100)) 1 tab TID PO Last administered on 09:34; Admin Dose 1 TAB; Start 04/16/17 at 09:00 Levetiracetam (Keppra) 750 mg BID PO Last administered on 04/25/17 09:36; Admin Dose 750 MG; Start 04/16/17 at 09:00 Primidone (Mysoline) 50 mg DAILY PO Last administered on 04/25/17 09:36; Admin Dose 50 MG; Start 04/16/17 at 09:00 Sertraline HCl 25 mg 25 mg DAILY PO Last administered on 04/25/17 09:34; Admin Dose 25 MG; Start 04/16/17 at 09:00 Sodium Chloride (NS) 1,000 ml @ 50 mls/hr Q20H IV Last administered on 21:23; Admin Dose 50 MLS/HR; Start 04/16/17 at 06:21 Ondansetron HCl (Zofran Inj) 4 mg Q6H PRN IV NAUSEA AND/OR VOMITING; Start at 06:30 Nystatin (Nystatin Powder) 1 applic BID TOP Last administered on 04/25/17 09: 36; Admin Dose 1 APPLIC; Start 04/16/17 at 14:00 Collagenase (Santyl) APPLY TO SACRUM & BUTTO... BID TOP Last administered on 21:20; Admin Dose 1 APPLIC; Start 04/17/17 at 13:30 Famotidine (Pepcid) 20 mg DAILY PO Last administered on 04/25/17 09:36; Admin Dose 20 MG; Start 04/18/17 at 09:00 Loperamide HCl (Imodium Cap) 2 mg QID PRN PO DIARRHEA; Start 04/17/17 at 18:00 Cholestyramine Resin (Questran Light) 4 gm BID PO Last administered on 09:34; Admin Dose 4 GM; Start 04/19/17 at 09:00 Pramipexole 0.5 mg 0.5 mg TID PO Last administered on 04/25/17 09:34; Admin Dose 0.5 MG; Start 04/20/17 at 09:30 Cefotaxime Sodium (Claforan 1gm/50 ml (Pmx)) 50 ml @ 100 mls/hr Q8 IVPB Last administered on 04/25/17 06:23; Admin Dose 100 MLS/HR; Start 04/21/17 at 22:00 Estrogens Conjugated (Premarin Vaginal Cr) 0.5 GM MEASURED ... DAILY@21 VAG Last administered on 04/24/17 21:20; Admin Dose 1 APPLIC; Start 04/22/17 at 21: 00 NAYLA JUAREZ M.D. April 25, 2017 12:58
--- NOTE | 2017-04-25 13:07 | PN ---
Date/Time of Note Date/Time of Note DATE: 04/25/17 TIME: 13:06 Assessment/Plan VTE Prophylaxis VTE Prophylaxis Intervention: SCD's Lines/Catheters [facility] Peripheral IV Urinary Cath still in place: No Assessment/Plan Chief Complaint/Hosp Course 1. Syncope episode multiple factors 2. Hypertension 3. Hyperlipidemia 4. Hypothyroidism 5. Ct scan showed changes in right side of the brain as a Chronic right frontal infarct. 6. Parkinson disease 4. Hs seizure 5. Hs abdominal surgery 6. Anemia 7. Diarrhea 8. UTI Problems: Assessment/Plan 1. Possible discharge Subjective 24 Hr Interval Summary Constitutional: no complaints Cardiovascular: no complaints Gastrointestinal: no complaints Exam/Review of Systems Vital Signs Vitals Vital Signs Date Time Temp Pulse Resp B/P Pulse Ox O2 Delivery O2 Flow Rate FiO2 04/25/17 08:10 98.0 63 16 118/53 94 Intake and Output 04/24/17 04/24/17 04/25/17 15:00 23:00 07:00 Intake Total 50 ml 930 ml 600 ml Balance 50 ml 930 ml 600 ml Exam Constitutional: alert, oriented Psych: no complaints Neck: supple Respiratory: clear to auscultation Cardiovascular: regular rate and rhythm Gastrointestinal: soft Genitourinary - Female: nl external genitalia Results Result Diagram: 04/24/1751004/24/17 05 Medications Medications Current Medications Acetaminophen (Tylenol Tab) 650 mg Q6 PRN PO PAIN; Start 04/16/17 at 06:30 Atorvastatin Calcium (Lipitor) 20 mg QHS PO Last administered on 04/24/17 21: 15; Admin Dose 20 MG; Start 04/16/17 at 21:00 Benazepril HCl (Lotensin) 10 mg DAILY PO Last administered on 04/24/17 09:01; Admin Dose 10 MG; Start 04/16/17 at 09:00 Carbidopa/Levodopa (Sinemet (25/ 100)) 1 tab TID PO Last administered on 13:01; Admin Dose 1 TAB; Start 04/16/17 at 09:00 Levetiracetam (Keppra) 750 mg BID PO Last administered on 04/25/17 09:36; Admin Dose 750 MG; Start 04/16/17 at 09:00 Primidone (Mysoline) 50 mg DAILY PO Last administered on 04/25/17 09:36; Admin Dose 50 MG; Start 04/16/17 at 09:00 Sertraline HCl 25 mg 25 mg DAILY PO Last administered on 04/25/17 09:34; Admin Dose 25 MG; Start 04/16/17 at 09:00 Sodium Chloride (NS) 1,000 ml @ 50 mls/hr Q20H IV Last administered on 21:23; Admin Dose 50 MLS/HR; Start 04/16/17 at 06:21 Ondansetron HCl (Zofran Inj) 4 mg Q6H PRN IV NAUSEA AND/OR VOMITING; Start at 06:30 Nystatin (Nystatin Powder) 1 applic BID TOP Last administered on 04/25/17 09: 36; Admin Dose 1 APPLIC; Start 04/16/17 at 14:00 Collagenase (Santyl) APPLY TO SACRUM & BUTTO... BID TOP Last administered on 21:20; Admin Dose 1 APPLIC; Start 04/17/17 at 13:30 Famotidine (Pepcid) 20 mg DAILY PO Last administered on 04/25/17 09:36; Admin Dose 20 MG; Start 04/18/17 at 09:00 Loperamide HCl (Imodium Cap) 2 mg QID PRN PO DIARRHEA; Start 04/17/17 at 18:00 Cholestyramine Resin (Questran Light) 4 gm BID PO Last administered on 09:34; Admin Dose 4 GM; Start 04/19/17 at 09:00 Pramipexole 0.5 mg 0.5 mg TID PO Last administered on 04/25/17 13:01; Admin Dose 0.5 MG; Start 04/20/17 at 09:30 Cefotaxime Sodium (Claforan 1gm/50 ml (Pmx)) 50 ml @ 100 mls/hr Q8 IVPB Last administered on 04/25/17 06:23; Admin Dose 100 MLS/HR; Start 04/21/17 at 22:00 Estrogens Conjugated (Premarin Vaginal Cr) 0.5 GM MEASURED ... DAILY@21 VAG Last administered on 04/24/17 21:20; Admin Dose 1 APPLIC; Start 04/22/17 at 21: 00 CHRISTY SANCHEZ April 25, 2017 13:07
--- NOTE | 2017-04-25 13:17 | CONS ---
Date/Time of Note Date/Time of Note DATE: 04/25/17 TIME: 13:16 Assessment/Plan Assessment/Plan Chief Complaint/Hosp Course IMPRESSION: 1. Urinary tract infection. 2. Parkinson's disease. 3. Diarrhea. All cultures are negative so far. Improved on questran 4. Seizure. 5. Hypothyroidism. 6. Hyperlipidemia. 7. Syncopal episode. Plan - continue Questran. - Continue abx's and f/u cx data - Dr. Carolina to resume care of this patient tomorrow Problems: Consultation Date/Type/Reason Admit Date/Time April 16, 2017 at 05:02 Type of Consultation: GI Referring Provider: MYLES SCHAFFER MD 24 HR Interval Summary Free Text/Dictation diarrhea improved, no n/v Exam/Review of Systems Vital Signs Vitals Vital Signs Date Time Temp Pulse Resp B/P Pulse Ox O2 Delivery O2 Flow Rate FiO2 04/25/17 08:10 98.0 63 16 118/53 94 Intake and Output 04/24/17 04/24/17 04/25/17 14:59 22:59 06:59 Intake Total 50 ml 930 ml 550 ml Balance 50 ml 930 ml 550 ml Exam Constitutional: frail Head: atraumatic, normocephalic Eyes: nl conjunctiva, nl lids, nl sclera ENMT: mucosa pink and moist, nl external ears & nose, nl lips & teeth, nl nasal mucosa & septum Neck: non-tender, supple Respiratory: clear to auscultation, normal air movement Cardiovascular: nl pulses, regular rate and rhythm Gastrointestinal: bowel sounds, non-tender, soft Results Result Diagram: 04/24/1751004/24/17510 Medications Medications Current Medications Acetaminophen (Tylenol Tab) 650 mg Q6 PRN PO PAIN; Start 04/16/17 at 06:30 Atorvastatin Calcium (Lipitor) 20 mg QHS PO Last administered on 04/24/17 21: 15; Admin Dose 20 MG; Start 04/16/17 at 21:00 Benazepril HCl (Lotensin) 10 mg DAILY PO Last administered on 04/24/17 09:01; Admin Dose 10 MG; Start 04/16/17 at 09:00 Carbidopa/Levodopa (Sinemet (25/ 100)) 1 tab TID PO Last administered on 13:01; Admin Dose 1 TAB; Start 04/16/17 at 09:00 Levetiracetam (Keppra) 750 mg BID PO Last administered on 04/25/17 09:36; Admin Dose 750 MG; Start 04/16/17 at 09:00 Primidone (Mysoline) 50 mg DAILY PO Last administered on 04/25/17 09:36; Admin Dose 50 MG; Start 04/16/17 at 09:00 Sertraline HCl 25 mg 25 mg DAILY PO Last administered on 04/25/17 09:34; Admin Dose 25 MG; Start 04/16/17 at 09:00 Sodium Chloride (NS) 1,000 ml @ 50 mls/hr Q20H IV Last administered on 21:23; Admin Dose 50 MLS/HR; Start 04/16/17 at 06:21 Ondansetron HCl (Zofran Inj) 4 mg Q6H PRN IV NAUSEA AND/OR VOMITING; Start at 06:30 Nystatin (Nystatin Powder) 1 applic BID TOP Last administered on 04/25/17 09: 36; Admin Dose 1 APPLIC; Start 04/16/17 at 14:00 Collagenase (Santyl) APPLY TO SACRUM & BUTTO... BID TOP Last administered on 21:20; Admin Dose 1 APPLIC; Start 04/17/17 at 13:30 Famotidine (Pepcid) 20 mg DAILY PO Last administered on 04/25/17 09:36; Admin Dose 20 MG; Start 04/18/17 at 09:00 Loperamide HCl (Imodium Cap) 2 mg QID PRN PO DIARRHEA; Start 04/17/17 at 18:00 Cholestyramine Resin (Questran Light) 4 gm BID PO Last administered on 09:34; Admin Dose 4 GM; Start 04/19/17 at 09:00 Pramipexole 0.5 mg 0.5 mg TID PO Last administered on 04/25/17 13:01; Admin Dose 0.5 MG; Start 04/20/17 at 09:30 Cefotaxime Sodium (Claforan 1gm/50 ml (Pmx)) 50 ml @ 100 mls/hr Q8 IVPB Last administered on 04/25/17 06:23; Admin Dose 100 MLS/HR; Start 04/21/17 at 22:00 Estrogens Conjugated (Premarin Vaginal Cr) 0.5 GM MEASURED ... DAILY@21 VAG Last administered on 04/24/17 21:20; Admin Dose 1 APPLIC; Start 04/22/17 at 21: 00 KAYLYNN CORBETT MD April 25, 2017 13:17
--- NOTE | 2017-04-25 15:53 | CONS ---
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 Lauren Consultation Date/Type/Reason Admit Date/Time April 16, 2017 at 05:02 Initial Consult Date 04/22/17 Type of Consultation: GI Referring Provider: MYLES SCHAFFER MD Exam/Review of Systems Vital Signs Vitals Vital Signs Date Time Temp Pulse Resp B/P Pulse Ox O2 Delivery O2 Flow Rate FiO2 04/25/17 08:10 98.0 63 16 118/53 94 Intake and Output 04/24/17 04/24/17 04/25/17 15:00 23:00 07:00 Intake Total 50 ml 930 ml 600 ml Balance 50 ml 930 ml 600 ml Exam Constitutional: alert, frail, thin, in NAD, smiling Head: atraumatic, normocephalic Eyes: nl sclera Neck: other (unable to assess) Respiratory: clear to auscultation (anteriorly). Normal air magnets Cardiovascular: nl pulses, regular rate and rhythm Gastrointestinal: bowel sounds (present), non-tender, soft Musculoskeletal: muscle weakness Extremities: other (contracted with fine tremors noted on fingers) Neurological: other (+ tracking); quadriplegic Skin: other (Wounds including sacral decub- see nurse notes and photos in chart for details) Constitutional: alert, well developed Psych: nl mood/affect Eyes: EOMI, nl sclera ENMT: nl external ears & nose Respiratory: clear to auscultation, normal air movement Cardiovascular: nl pulses, regular rate and rhythm Gastrointestinal: non-tender, soft Musculoskeletal: nl extremities to inspection Extremities: normal pulses Neurological: nl mental status, nl speech Skin: other Lymph: nontender Results Result Diagram: 04/24/1751004/24/17510 Medications Medications Current Medications Acetaminophen (Tylenol Tab) 650 mg Q6 PRN PO PAIN; Start 04/16/17 at 06:30 Atorvastatin Calcium (Lipitor) 20 mg QHS PO Last administered on 04/24/17 21: 15; Admin Dose 20 MG; Start 04/16/17 at 21:00 Benazepril HCl (Lotensin) 10 mg DAILY PO Last administered on 04/24/17 09:01; Admin Dose 10 MG; Start 04/16/17 at 09:00 Carbidopa/Levodopa (Sinemet (25/ 100)) 1 tab TID PO Last administered on 13:01; Admin Dose 1 TAB; Start 04/16/17 at 09:00 Levetiracetam (Keppra) 750 mg BID PO Last administered on 04/25/17 09:36; Admin Dose 750 MG; Start 04/16/17 at 09:00 Primidone (Mysoline) 50 mg DAILY PO Last administered on 04/25/17 09:36; Admin Dose 50 MG; Start 04/16/17 at 09:00 Sertraline HCl 25 mg 25 mg DAILY PO Last administered on 04/25/17 09:34; Admin Dose 25 MG; Start 04/16/17 at 09:00 Sodium Chloride (NS) 1,000 ml @ 50 mls/hr Q20H IV Last administered on 21:23; Admin Dose 50 MLS/HR; Start 04/16/17 at 06:21 Ondansetron HCl (Zofran Inj) 4 mg Q6H PRN IV NAUSEA AND/OR VOMITING; Start at 06:30 Nystatin (Nystatin Powder) 1 applic BID TOP Last administered on 04/25/17 09: 36; Admin Dose 1 APPLIC; Start 04/16/17 at 14:00 Collagenase (Santyl) APPLY TO SACRUM & BUTTO... BID TOP Last administered on 21:20; Admin Dose 1 APPLIC; Start 04/17/17 at 13:30 Famotidine (Pepcid) 20 mg DAILY PO Last administered on 04/25/17 09:36; Admin Dose 20 MG; Start 04/18/17 at 09:00 Loperamide HCl (Imodium Cap) 2 mg QID PRN PO DIARRHEA; Start 04/17/17 at 18:00 Cholestyramine Resin (Questran Light) 4 gm BID PO Last administered on 09:34; Admin Dose 4 GM; Start 04/19/17 at 09:00 Pramipexole 0.5 mg 0.5 mg TID PO Last administered on 04/25/17 13:01; Admin Dose 0.5 MG; Start 04/20/17 at 09:30 Cefotaxime Sodium (Claforan 1gm/50 ml (Pmx)) 50 ml @ 100 mls/hr Q8 IVPB Last administered on 04/25/17 14:02; Admin Dose 100 MLS/HR; Start 04/21/17 at 22:00 Estrogens Conjugated (Premarin Vaginal Cr) 0.5 GM MEASURED ... DAILY@21 VAG Last administered on 04/24/17 21:20; Admin Dose 1 APPLIC; Start 04/22/17 at 21: 00 ABDIRASHID URBAN April 25, 2017 15:53
[2017-04-25 19:38] VITALS: BP 109/53; RESP 18
[2017-04-25] MEDS: ATORVASTATIN 20 MG TAB PO SCH (21:12)
[2017-04-25] MEDS: ESTROGENS CONJUGATED 42.5 GM VAG CR VAG SCH (21:13)
[2017-04-26] MEDS: CEFOTAXIME 1 GM/50 ML (PMX) 50 ML IVPB SCH ×3 (05:41→21:04)
[2017-04-26] MEDS: LEVOTHYROXINE 100 MCG TAB PO SCH (06:04)
[2017-04-26 08:19] VITALS: BP 101/56; RESP 18
--- NOTE | 2017-04-26 08:48 | CONS ---
Date/Time of Note Date/Time of Note DATE: 04/26/17 TIME: 08:46 Assessment/Plan Assessment/Plan Additional Assessment/Plan 1.syncope-preserved EF by echo 02/11 with Diastolic dysfunction. negative trop > 3 - off tele now, no new symptoms 2.HTN-somewhat labile but currently reasonable - stable now 3.HL 4.H/O seizures - no new episodes 5.Anemia - H/h stable 6.Loose stools/diarrhea-negative c diff - improved 7.Bradycardia to 50's/S. Jeremy while on tele with stable BP - no indication for pacer now Consultation Date/Type/Reason Admit Date/Time April 16, 2017 at 05:02 Type of Consultation: GI Referring Provider: MYLES SCHAFFER MD 24 HR Interval Summary Free Text/Dictation NO acute events - BP in good range - no new syncope noted ROS: No fever, no chills, no nausea, no vomiting, no diarrhea/constipation No recent weight changes No chest pain, no PND, no orthopnea No dizziness, blurred vision No thirst, no heat or cold intolerance Exam/Review of Systems Vital Signs Vitals Vital Signs Date Time Temp Pulse Resp B/P Pulse Ox O2 Delivery O2 Flow Rate FiO2 04/26/17 08:19 98.2 76 18 101/56 94 Intake and Output 04/25/17 04/25/17 04/26/17 15:00 23:00 07:00 Intake Total 50 ml 1840 ml 980 ml Output Total 2 ml Balance 50 ml 1840 ml 978 ml Exam General: WN/WD/NAD, AOx 2-3 HEENT: Unicetric/atraumatic/EOMI (follows commands) NECK: JVD elevated, no thyromegaly Lymph: no lymphadenopathy HEART: regular with no S3, II/ systolic murmur at apex LUNGS: Coarse sounds ABD: soft, NT, ND, +BS : Intact Neuro: non focal SKIN: chronic changes EXT: trace edema Results Result Diagram: 04/24/1751004/24/17510 Medications Medications Current Medications Acetaminophen (Tylenol Tab) 650 mg Q6 PRN PO PAIN; Start 04/16/17 at 06:30 Atorvastatin Calcium (Lipitor) 20 mg QHS PO Last administered on 04/25/17t 21: 12; Admin Dose 20 MG; Start 04/16/17 at 21:00 Benazepril HCl (Lotensin) 10 mg DAILY PO Last administered on 04/24/17 09:01; Admin Dose 10 MG; Start 04/16/17 at 09:00 Carbidopa/Levodopa (Sinemet (25/ 100)) 1 tab TID PO Last administered on 21:12; Admin Dose 1 TAB; Start 04/16/17 at 09:00 Levetiracetam (Keppra) 750 mg BID PO Last administered on 04/25/17 21:12; Admin Dose 750 MG; Start 04/16/17 at 09:00 Primidone (Mysoline) 50 mg DAILY PO Last administered on 04/25/17 09:36; Admin Dose 50 MG; Start 04/16/17 at 09:00 Sertraline HCl 25 mg 25 mg DAILY PO Last administered on 04/25/17 09:34; Admin Dose 25 MG; Start 04/16/17 at 09:00 Sodium Chloride (NS) 1,000 ml @ 50 mls/hr Q20H IV Last administered on 21:00; Admin Dose 50 MLS/HR; Start 04/16/17 at 06:21 Ondansetron HCl (Zofran Inj) 4 mg Q6H PRN IV NAUSEA AND/OR VOMITING; Start at 06:30 Nystatin (Nystatin Powder) 1 applic BID TOP Last administered on 04/25/17 21: 13; Admin Dose 1 APPLIC; Start 04/16/17 at 14:00 Collagenase (Santyl) APPLY TO SACRUM & BUTTO... BID TOP Last administered on 21:14; Admin Dose 1 APPLIC; Start 04/17/17 at 13:30 Famotidine (Pepcid) 20 mg DAILY PO Last administered on 04/25/17 09:36; Admin Dose 20 MG; Start 04/18/17 at 09:00 Loperamide HCl (Imodium Cap) 2 mg QID PRN PO DIARRHEA; Start 04/17/17 at 18:00 Cholestyramine Resin (Questran Light) 4 gm BID PO Last administered on 21:12; Admin Dose 4 GM; Start 04/19/17 at 09:00 Pramipexole 0.5 mg 0.5 mg TID PO Last administered on 04/25/17 21:19; Admin Dose 0.5 MG; Start 04/20/17 at 09:30 Cefotaxime Sodium (Claforan 1gm/50 ml (Pmx)) 50 ml @ 100 mls/hr Q8 IVPB Last administered on 04/26/17 05:41; Admin Dose 100 MLS/HR; Start 04/21/17 at 22:00 Estrogens Conjugated (Premarin Vaginal Cr) 0.5 GM MEASURED ... DAILY@21 VAG Last administered on 04/25/17 21:13; Admin Dose 1 APPLIC; Start 04/22/17 at 21: 00 Zolpidem Tartrate (Ambien) 2.5 mg HS PRN PO INSOMNIA; Start 04/25/17 at 17:00 ETELVINA ENRIQUEZ MD April 26, 2017 08:48
[2017-04-26] MEDS: LEVETIRACETAM 750 MG TAB PO SCH ×2 (09:07→21:02)
[2017-04-26] MEDS: CHOLESTYRAMINE (LIGHT) 4 GM PACKET PO SCH ×2 (09:08→21:02)
[2017-04-26] MEDS: PRAMIPEXOLE 1 MG TAB PO SCH ×3 (09:08→21:03)
[2017-04-26] MEDS: CARBIDOPA/LEVODOPA (25/100) TAB PO SCH ×3 (09:08→21:02)
[2017-04-26] MEDS: NYSTATIN 30 GM POWDER BTL TOP SCH ×2 (09:09→21:03)
[2017-04-26] MEDS: COLLAGENASE 30 GM TUBE TOP SCH ×2 (09:10→21:11)
[2017-04-26] MEDS: BENAZEPRIL 10 MG TAB PO SCH (09:11)
[2017-04-26] MEDS: FAMOTIDINE 20 MG TAB PO SCH (09:11)
[2017-04-26 09:21] LABS: ADD SCAN DIFF NO
[2017-04-26 09:23] LABS: BASOPHILS % 0.5 % (0.0-2.0); EOSINOPHILS # 0.5 10^3/ul (0.0-0.5); HEMATOCRIT 34.3 % (37.0-47.0); HEMOGLOBIN 10.4 g/dl (12.0-16.0); LYMPHOCYTES # 3.3 10^3/ul (0.8-2.9); LYMPHOCYTES % 39.6 % (15.0-51.0); MEAN CORPUSCULAR HEMOGLOBIN 30.5 pg (29.0-33.0); MEAN CORPUSCULAR HGB CONC 30.3 g/dl (32.0-37.0); MEAN CORPUSCULAR VOLUME 100.6 fl (82.0-101.0); MEAN PLATELET VOLUME 9.9 fl (7.4-10.4); MONOCYTES % 11.4 % (0.0-11.0); NEUTROPHIL # 3.5 10^3/ul (1.6-7.5); NEUTROPHILS % 41.7 % (39.0-77.0); PLATELET COUNT 318 10^3/UL (140-415); RED BLOOD COUNT 3.41 10^6/ul (4.20-5.40); RED CELL DISTRIBUTION WIDTH 16.1 % (11.5-14.5); WHITE BLOOD COUNT 8.4 10^3/ul (4.8-10.8)
[2017-04-26] MEDS: PRIMIDONE 50 MG TAB PO SCH (09:45)
[2017-04-26] MEDS: SERTRALINE 50 MG TAB PO SCH (09:46)
[2017-04-26 09:59] LABS: POTASSIUM 4.7 mmol/L (3.5-5.1)
[2017-04-26 10:02] LABS: CREATININE 0.67 mg/dl (0.44-1.00)
[2017-04-26 10:03] LABS: CALCIUM 8.7 mg/dl (8.4-10.2)
--- NOTE | 2017-04-26 14:58 | CONS ---
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 Pt took ceftriaxone ( 04/16/17-04/21/17) & Keflex previously management d/w Pt's RN Problems: Consultation Date/Type/Reason Admit Date/Time April 16, 2017 at 05:02 Initial Consult Date 04/22/17 Type of Consultation: ID Referring Provider: MYLES SCHAFFER MD 24 HR Interval Summary Free Text/Dictation ROS limited due to her lethargy Constitutional: no complaints Detailed Summary Respiratory: no complaints Gastrointestinal: other (constipated) Exam/Review of Systems Vital Signs Vitals Vital Signs Date Time Temp Pulse Resp B/P Pulse Ox O2 Delivery O2 Flow Rate FiO2 04/26/17 08:19 98.2 76 18 101/56 94 Intake and Output 04/25/17 04/25/17 04/26/17 15:00 23:00 07:00 Intake Total 50 ml 1840 ml 980 ml Output Total 2 ml Balance 50 ml 1840 ml 978 ml Exam Constitutional: frail Psych: confusion Head: atraumatic, normocephalic Eyes: nl conjunctiva, nl lids ENMT: nl external ears & nose, nl nasal mucosa & septum Respiratory: clear to auscultation, normal air movement Cardiovascular: nl pulses, regular rate and rhythm Gastrointestinal: non-tender, soft Musculoskeletal: nl extremities to inspection Extremities: No edema Neurological: lethargic Skin: No rash or lesions Results Result Diagram: 04/26/1758 04/26/17 0858 Results 24 hrs Laboratory Tests Test 04/26/17 08:58 White Blood Count 8.4 Red Blood Count 3.41 L Hemoglobin 10.4 L Hematocrit 34.3 L Mean Corpuscular Volume 100.6 Mean Corpuscular Hemoglobin 30.5 Mean Corpuscular Hemoglobin Concent 30.3 L Red Cell Distribution Width 16.1 H Platelet Count 318 # Mean Platelet Volume 9.9 Neutrophils % 41.7 Lymphocytes % 39.6 Monocytes % 11.4 H Eosinophils % 6.0 Basophils % 0.5 Nucleated Red Blood Cells % 0.0 Neutrophils # 3.5 Lymphocytes # 3.3 H Monocytes # 1.0 H Eosinophils # 0.5 Basophils # 0.0 Nucleated Red Blood Cells # 0.0 Sodium Level 139 Potassium Level 4.7 Chloride Level 111 H Carbon Dioxide Level 29 Anion Gap 4 L Blood Urea Nitrogen 17 Creatinine 0.67 Glucose Level 78 Calcium Level 8.7 Medications Medications Current Medications Acetaminophen (Tylenol Tab) 650 mg Q6 PRN PO PAIN; Start 04/16/17 at 06:30 Atorvastatin Calcium (Lipitor) 20 mg QHS PO Last administered on 04/25/17 21: 12; Admin Dose 20 MG; Start 04/16/17 at 21:00 Benazepril HCl (Lotensin) 10 mg DAILY PO Last administered on 04/26/17 09:11; Admin Dose 10 MG; Start 04/16/17 at 09:00 Carbidopa/Levodopa (Sinemet (25/ 100)) 1 tab TID PO Last administered on 13:40; Admin Dose 1 TAB; Start 04/16/17 at 09:00 Levetiracetam (Keppra) 750 mg BID PO Last administered on 04/26/17 09:07; Admin Dose 750 MG; Start 04/16/17 at 09:00 Primidone (Mysoline) 50 mg DAILY PO Last administered on 04/26/17 09:45; Admin Dose 50 MG; Start 04/16/17 at 09:00 Sertraline HCl 25 mg 25 mg DAILY PO Last administered on 04/26/17 09:46; Admin Dose 25 MG; Start 04/16/17 at 09:00 Sodium Chloride (NS) 1,000 ml @ 50 mls/hr Q20H IV Last administered on 21:00; Admin Dose 50 MLS/HR; Start 04/16/17 at 06:21 Ondansetron HCl (Zofran Inj) 4 mg Q6H PRN IV NAUSEA AND/OR VOMITING; Start at 06:30 Nystatin (Nystatin Powder) 1 applic BID TOP Last administered on 04/26/17 09: 09; Admin Dose 1 APPLIC; Start 5/20/17 at 14:00 Collagenase (Santyl) APPLY TO SACRUM & BUTTO... BID TOP Last administered on 09:10; Admin Dose 1 APPLIC; Start 04/17/17 at 13:30 Famotidine (Pepcid) 20 mg DAILY PO Last administered on 04/26/17 09:11; Admin Dose 20 MG; Start 04/18/17 at 09:00 Loperamide HCl (Imodium Cap) 2 mg QID PRN PO DIARRHEA; Start 04/17/17 at 18:00 Cholestyramine Resin (Questran Light) 4 gm BID PO Last administered on 09:08; Admin Dose 4 GM; Start 04/19/17 at 09:00 Pramipexole 0.5 mg 0.5 mg TID PO Last administered on 04/26/17 13:40; Admin Dose 0.5 MG; Start 04/20/17 at 09:30 Cefotaxime Sodium (Claforan 1gm/50 ml (Pmx)) 50 ml @ 100 mls/hr Q8 IVPB Last administered on 04/26/17 13:40; Admin Dose 100 MLS/HR; Start 04/21/17 at 22:00 Estrogens Conjugated (Premarin Vaginal Cr) 0.5 GM MEASURED ... DAILY@21 VAG Last administered on 04/25/17 21:13; Admin Dose 1 APPLIC; Start 04/22/17 at 21: 00 Zolpidem Tartrate (Ambien) 2.5 mg HS PRN PO INSOMNIA; Start 04/25/17 at 17:00 LORI BIGGS M.D. April 26, 2017 14:58
[2017-04-26] MEDS: SOD CHLORIDE 0.9% 1,000 ML IV SCH (19:50)
[2017-04-26 19:59] VITALS: BP 132/55; RESP 18
[2017-04-26] MEDS: ATORVASTATIN 20 MG TAB PO SCH (21:03)
[2017-04-26] MEDS: ESTROGENS CONJUGATED 42.5 GM VAG CR VAG SCH (21:04)
--- NOTE | 2017-04-26 21:04 | CONS ---
Date/Time of Note Date/Time of Note DATE: 04/26/17 TIME: 21:03 Assessment/Plan Assessment/Plan Additional Assessment/Plan IMPRESSION: 1. Urinary tract infection. 2. Parkinson's disease. 3. Diarrhea. All cultures are negative so far. Improved on questran 4. Seizure. 5. Hypothyroidism. 6. Hyperlipidemia. 7. Syncopal episode. Plan - continue Questran. - Continue abx's and f/u cx data Consultation Date/Type/Reason Admit Date/Time April 16, 2017 at 05:02 Type of Consultation: ID Referring Provider: MYLES SCHAFFER MD 24 HR Interval Summary Free Text/Dictation No diarrhea Constitutional: no complaints Exam/Review of Systems Vital Signs Vitals Vital Signs Date Time Temp Pulse Resp B/P Pulse Ox O2 Delivery O2 Flow Rate FiO2 04/26/17 19:59 98.3 74 18 132/55 97 Intake and Output 04/25/17 04/25/17 04/26/17 15:00 23:00 07:00 Intake Total 50 ml 1840 ml 980 ml Output Total 2 ml Balance 50 ml 1840 ml 978 ml Exam Constitutional: alert, oriented, well developed Psych: nl mood/affect, no complaints Head: atraumatic, normocephalic Eyes: EOMI, PERRL, nl conjunctiva, nl lids, nl sclera ENMT: nl external ears & nose, nl lips & teeth, nl nasal mucosa & septum Neck: non-tender, supple Respiratory: clear to auscultation, normal air movement Cardiovascular: nl pulses, regular rate and rhythm Gastrointestinal: nl liver, spleen, non-tender, soft Musculoskeletal: nl extremities to inspection, nl gait and stance Extremities: normal pulses Neurological: [employer] II-XII intact, nl mental status, nl speech, nl strength Skin: nl turgor, No rash or lesions Lymph: nl lymph nodes Results Result Diagram: 04/26/17 0858 04/26/17 0858 Results 24 hrs Laboratory Tests Test 04/26/17 08:58 White Blood Count 8.4 Red Blood Count 3.41 L Hemoglobin 10.4 L Hematocrit 34.3 L Mean Corpuscular Volume 100.6 Mean Corpuscular Hemoglobin 30.5 Mean Corpuscular Hemoglobin Concent 30.3 L Red Cell Distribution Width 16.1 H Platelet Count 318 # Mean Platelet Volume 9.9 Neutrophils % 41.7 Lymphocytes % 39.6 Monocytes % 11.4 H Eosinophils % 6.0 Basophils % 0.5 Nucleated Red Blood Cells % 0.0 Neutrophils # 3.5 Lymphocytes # 3.3 H Monocytes # 1.0 H Eosinophils # 0.5 Basophils # 0.0 Nucleated Red Blood Cells # 0.0 Sodium Level 139 Potassium Level 4.7 Chloride Level 111 H Carbon Dioxide Level 29 Anion Gap 4 L Blood Urea Nitrogen 17 Creatinine 0.67 Glucose Level 78 Calcium Level 8.7 Medications Medications Current Medications Acetaminophen (Tylenol Tab) 650 mg Q6 PRN PO PAIN; Start 04/16/17 at 06:30 Atorvastatin Calcium (Lipitor) 20 mg QHS PO Last administered on 04/25/17 21: 12; Admin Dose 20 MG; Start 04/16/17 at 21:00 Benazepril HCl (Lotensin) 10 mg DAILY PO Last administered on 04/26/17 09:11; Admin Dose 10 MG; Start 04/16/17 at 09:00 Carbidopa/Levodopa (Sinemet (25/ 100)) 1 tab TID PO Last administered on 13:40; Admin Dose 1 TAB; Start 04/16/17 at 09:00 Levetiracetam (Keppra) 750 mg BID PO Last administered on 04/26/17 09:07; Admin Dose 750 MG; Start 04/16/17 at 09:00 Primidone (Mysoline) 50 mg DAILY PO Last administered on 04/26/17 09:45; Admin Dose 50 MG; Start 04/16/17 at 09:00 Sertraline HCl 25 mg 25 mg DAILY PO Last administered on 04/26/17 09:46; Admin Dose 25 MG; Start 04/16/17 at 09:00 Sodium Chloride (NS) 1,000 ml @ 50 mls/hr Q20H IV Last administered on 19:50; Admin Dose 50 MLS/HR; Start 04/16/17 at 06:21 Ondansetron HCl (Zofran Inj) 4 mg Q6H PRN IV NAUSEA AND/OR VOMITING; Start at 06:30 Nystatin (Nystatin Powder) 1 applic BID TOP Last administered on 04/26/17 09: 09; Admin Dose 1 APPLIC; Start 04/16/17 at 14:00 Collagenase (Santyl) APPLY TO SACRUM & BUTTO... BID TOP Last administered on 09:10; Admin Dose 1 APPLIC; Start 04/17/17 at 13:30 Famotidine (Pepcid) 20 mg DAILY PO Last administered on 04/26/17 09:11; Admin Dose 20 MG; Start 04/18/17 at 09:00 Loperamide HCl (Imodium Cap) 2 mg QID PRN PO DIARRHEA; Start 04/17/17 at 18:00 Cholestyramine Resin (Questran Light) 4 gm BID PO Last administered on 09:08; Admin Dose 4 GM; Start 04/19/17 at 09:00 Pramipexole 0.5 mg 0.5 mg TID PO Last administered on 04/26/17 13:40; Admin Dose 0.5 MG; Start 04/20/17 at 09:30 Cefotaxime Sodium (Claforan 1gm/50 ml (Pmx)) 50 ml @ 100 mls/hr Q8 IVPB Last administered on 04/26/17 13:40; Admin Dose 100 MLS/HR; Start 04/21/17 at 22:00 ; Stop 04/26/17 at 23:59 Estrogens Conjugated (Premarin Vaginal Cr) 0.5 GM MEASURED ... DAILY@21 VAG Last administered on 04/25/17 21:13; Admin Dose 1 APPLIC; Start 04/22/17 at 21: 00 Zolpidem Tartrate (Ambien) 2.5 mg HS PRN PO INSOMNIA; Start 04/25/17 at 17:00 RAYO HUI MD April 26, 2017 21:04
[2017-04-26] MEDS: ZOLPIDEM 5 MG TAB PO PRN (23:30)
--- NOTE | 2017-04-26 23:44 | PN ---
Date/Time of Note Date/Time of Note DATE: 04/26/17 TIME: 23:44 Assessment/Plan VTE Prophylaxis VTE Prophylaxis Intervention: other Lines/Catheters IV C[facility]ter Type (from [facility]): Peripheral IV Urinary Cath still in place: No Assessment/Plan Chief Complaint/Hosp Course 1. Syncope episode 2. Hypertension 3. Hyperlipidemia 4. Hypothyroidism 5. Ct scan showed changes in right side of the brain as a Chronic right frontal infarct. 6. Parkinson disease 4. Hs seizure 5. Hs abdominal surgery 6. Anemia 7. Diarrhea better PLAN ID CONSULT ANTIBIOTIC per gi Problems: Subjective 24 Hr Interval Summary Gastrointestinal: no complaints Genitourinary: no complaints Musculoskeletal: no complaints Exam/Review of Systems Vital Signs Vitals Vital Signs Date Time Temp Pulse Resp B/P Pulse Ox O2 Delivery O2 Flow Rate FiO2 04/26/17 19:59 98.3 74 18 132/55 97 Intake and Output 04/25/17 04/25/17 04/26/17 15:00 23:00 07:00 Intake Total 50 ml 1840 ml 980 ml Output Total 2 ml Balance 50 ml 1840 ml 978 ml Exam Respiratory: clear to auscultation Cardiovascular: regular rate and rhythm Gastrointestinal: soft Musculoskeletal: nl extremities to inspection Extremities: normal pulses Results Result Diagram: 04/26/17 0858 04/26/17 0858 Results 24 hrs Laboratory Tests Test 04/26/17 08:58 White Blood Count 8.4 Red Blood Count 3.41 L Hemoglobin 10.4 L Hematocrit 34.3 L Mean Corpuscular Volume 100.6 Mean Corpuscular Hemoglobin 30.5 Mean Corpuscular Hemoglobin Concent 30.3 L Red Cell Distribution Width 16.1 H Platelet Count 318 # Mean Platelet Volume 9.9 Neutrophils % 41.7 Lymphocytes % 39.6 Monocytes % 11.4 H Eosinophils % 6.0 Basophils % 0.5 Nucleated Red Blood Cells % 0.0 Neutrophils # 3.5 Lymphocytes # 3.3 H Monocytes # 1.0 H Eosinophils # 0.5 Basophils # 0.0 Nucleated Red Blood Cells # 0.0 Sodium Level 139 Potassium Level 4.7 Chloride Level 111 H Carbon Dioxide Level 29 Anion Gap 4 L Blood Urea Nitrogen 17 Creatinine 0.67 Glucose Level 78 Calcium Level 8.7 Medications Medications Current Medications Acetaminophen (Tylenol Tab) 650 mg Q6 PRN PO PAIN; Start 04/16/17 at 06:30 Atorvastatin Calcium (Lipitor) 20 mg QHS PO Last administered on 04/26/17 21: 03; Admin Dose 20 MG; Start 04/16/17 at 21:00 Benazepril HCl (Lotensin) 10 mg DAILY PO Last administered on 04/26/17 09:11; Admin Dose 10 MG; Start 04/16/17 at 09:00 Carbidopa/Levodopa (Sinemet (25/ 100)) 1 tab TID PO Last administered on 21:02; Admin Dose 1 TAB; Start 04/16/17 at 09:00 Levetiracetam (Keppra) 750 mg BID PO Last administered on 04/26/17 21:02; Admin Dose 750 MG; Start 04/16/17 at 09:00 Primidone (Mysoline) 50 mg DAILY PO Last administered on 04/26/17 09:45; Admin Dose 50 MG; Start 04/16/17 at 09:00 Sertraline HCl 25 mg 25 mg DAILY PO Last administered on 04/26/17 09:46; Admin Dose 25 MG; Start 04/16/17 at 09:00 Sodium Chloride (NS) 1,000 ml @ 50 mls/hr Q20H IV Last administered on 19:50; Admin Dose 50 MLS/HR; Start 04/16/17 at 06:21 Ondansetron HCl (Zofran Inj) 4 mg Q6H PRN IV NAUSEA AND/OR VOMITING; Start at 06:30 Nystatin (Nystatin Powder) 1 applic BID TOP Last administered on 04/26/17 21: 03; Admin Dose 1 APPLIC; Start 04/16/17 at 14:00 Collagenase (Santyl) APPLY TO SACRUM & BUTTO... BID TOP Last administered on 21:11; Admin Dose 1 APPLIC; Start 04/17/17 at 13:30 Famotidine (Pepcid) 20 mg DAILY PO Last administered on 04/26/17 09:11; Admin Dose 20 MG; Start 04/18/17 at 09:00 Loperamide HCl (Imodium Cap) 2 mg QID PRN PO DIARRHEA; Start 04/17/17 at 18:00 Cholestyramine Resin (Questran Light) 4 gm BID PO Last administered on 21:02; Admin Dose 4 GM; Start 04/19/17 at 09:00 Pramipexole 0.5 mg 0.5 mg TID PO Last administered on 04/26/17 21:03; Admin Dose 0.5 MG; Start 04/20/17 at 09:30 Cefotaxime Sodium (Claforan 1gm/50 ml (Pmx)) 50 ml @ 100 mls/hr Q8 IVPB Last administered on 04/26/17 21:04; Admin Dose 100 MLS/HR; Start 04/21/17 at 22:00 ; Stop 04/26/17 at 23:59 Estrogens Conjugated (Premarin Vaginal Cr) 0.5 GM MEASURED ... DAILY@21 VAG Last administered on 04/26/17 21:04; Admin Dose 1 APPLIC; Start 04/22/17 at 21: 00 Zolpidem Tartrate (Ambien) 2.5 mg HS PRN PO INSOMNIA Last administered on 23:30; Admin Dose 2.5 MG; Start 04/25/17 at 17:00 MYLES SCHAFFER MD April 26, 2017 23:44
[2017-04-27] MEDS: LEVOTHYROXINE 100 MCG TAB PO SCH (06:27)
[2017-04-27 08:11] VITALS: BP 136/59; RESP 16
[2017-04-27] MEDS: CARBIDOPA/LEVODOPA (25/100) TAB PO SCH ×3 (08:30→21:06)
[2017-04-27] MEDS: CHOLESTYRAMINE (LIGHT) 4 GM PACKET PO SCH ×2 (08:30→21:06)
[2017-04-27] MEDS: LEVETIRACETAM 750 MG TAB PO SCH ×2 (08:30→21:06)
[2017-04-27] MEDS: PRAMIPEXOLE 1 MG TAB PO SCH ×3 (08:30→21:06)
[2017-04-27] MEDS: FAMOTIDINE 20 MG TAB PO SCH (08:30)
[2017-04-27] MEDS: SERTRALINE 50 MG TAB PO SCH (08:30)
[2017-04-27] MEDS: PRIMIDONE 50 MG TAB PO SCH (08:30)
[2017-04-27] MEDS: BENAZEPRIL 10 MG TAB PO SCH (08:31)
[2017-04-27] MEDS: COLLAGENASE 30 GM TUBE TOP SCH ×2 (08:31→21:07)
[2017-04-27] MEDS: NYSTATIN 30 GM POWDER BTL TOP SCH ×2 (08:31→21:07)
--- NOTE | 2017-04-27 10:30 | CONS ---
Date/Time of Note Date/Time of Note DATE: 04/27/17 TIME: 10:26 Assessment/Plan Assessment/Plan Chief Complaint/Hosp Course - UTI due to MDR proteus. Completed 10 day course of antibiotic - diarrhea - resolved; C diff negative - syncope - h/o seizure - Parkinson's disease - HTN - HLD - hypothyroidism with subclinical hyperthyroidism (depressed TSH and normal FT4) - normocytic anemia - moderate protein calorie malnutrition recommendations: - repeat conner cultures if temp >100.4F. - continue to monitor Pt off systemic antibiotics. - ID consult team will see this Pt as needed Problems: Consultation Date/Type/Reason Admit Date/Time April 16, 2017 at 05:02 Initial Consult Date 04/22/17 Type of Consultation: ID Referring Provider: MYLES SCHAFFER MD 24 HR Interval Summary Free Text/Dictation Pt refused to talk with me or to be examined Subjective hx not possible: pt non-verbal Exam/Review of Systems Vital Signs Vitals Vital Signs Date Time Temp Pulse Resp B/P Pulse Ox O2 Delivery O2 Flow Rate FiO2 04/27/17 08:11 97.3 69 16 136/59 96 Intake and Output 04/26/17 04/26/17 04/27/17 15:00 23:00 07:00 Intake Total 50 ml 1290 ml 500 ml Balance 50 ml 1290 ml 500 ml Exam Pt refused PE saying "leave me alone" Results Result Diagram: 04/26/1758 04/26/17 0858 Medications Medications Current Medications Acetaminophen (Tylenol Tab) 650 mg Q6 PRN PO PAIN; Start 04/16/17 at 06:30 Atorvastatin Calcium (Lipitor) 20 mg QHS PO Last administered on 04/26/17 21: 03; Admin Dose 20 MG; Start 04/16/17 at 21:00 Benazepril HCl (Lotensin) 10 mg DAILY PO Last administered on 04/27/17 08:31; Admin Dose 10 MG; Start 04/16/17 at 09:00 Carbidopa/Levodopa (Sinemet (25/ 100)) 1 tab TID PO Last administered on 08:30; Admin Dose 1 TAB; Start 04/16/17 at 09:00 Levetiracetam (Keppra) 750 mg BID PO Last administered on 04/27/17 08:30; Admin Dose 750 MG; Start 04/16/17 at 09:00 Primidone (Mysoline) 50 mg DAILY PO Last administered on 04/27/17 08:30; Admin Dose 50 MG; Start 04/16/17 at 09:00 Sertraline HCl 25 mg 25 mg DAILY PO Last administered on 04/27/17 08:30; Admin Dose 25 MG; Start 04/16/17 at 09:00 Sodium Chloride (NS) 1,000 ml @ 50 mls/hr Q20H IV Last administered on 19:50; Admin Dose 50 MLS/HR; Start 04/16/17 at 06:21 Ondansetron HCl (Zofran Inj) 4 mg Q6H PRN IV NAUSEA AND/OR VOMITING; Start at 06:30 Nystatin (Nystatin Powder) 1 applic BID TOP Last administered on 04/27/17 08: 31; Admin Dose 1 APPLIC; Start 04/16/17 at 14:00 Collagenase (Santyl) APPLY TO SACRUM & BUTTO... BID TOP Last administered on 08:31; Admin Dose 1 APPLIC; Start 04/17/17 at 13:30 Famotidine (Pepcid) 20 mg DAILY PO Last administered on 04/27/17 08:30; Admin Dose 20 MG; Start 04/18/17 at 09:00 Loperamide HCl (Imodium Cap) 2 mg QID PRN PO DIARRHEA; Start 04/17/17 at 18:00 Cholestyramine Resin (Questran Light) 4 gm BID PO Last administered on 08:30; Admin Dose 4 GM; Start 04/19/17 at 09:00 Pramipexole (Mirapex) 0.5 mg TID PO Last administered on 04/27/17 08:30; Admin Dose 0.5 MG; Start 04/20/17 at 09:30 Estrogens Conjugated (Premarin Vaginal Cr) 0.5 GM MEASURED ... DAILY@21 VAG Last administered on 04/26/17 21:04; Admin Dose 1 APPLIC; Start 04/22/17 at 21: 00 Zolpidem Tartrate (Ambien) 2.5 mg HS PRN PO INSOMNIA Last administered on 23:30; Admin Dose 2.5 MG; Start 04/25/17 at 17:00 LORI BIGGS M.D. April 27, 2017 10:30
--- NOTE | 2017-04-27 12:18 | PDOCDIS ---
Discharge Instructions CONDITION Patient Condition: Stable HOME CARE INSTRUCTIONS: Special Diet: puree diet ACTIVITY: Activity Restrictions: Slowly Increase Activity FOLLOW UP/APPOINTMENTS Appointments f/u dr schaffer 2 wks MYLES SCHAFFER MD April 27, 2017 12:18
[2017-04-27] MEDS ORDERED: SYN1 PO (12:22)
[2017-04-27] MEDS ORDERED: IMO2 PO (12:22)
[2017-04-27] MEDS ORDERED: PREMVAG VAG (12:22)
[2017-04-27] MEDS ORDERED: NYST15PO4 TOP (12:22)
[2017-04-27] MEDS ORDERED: CHOL4PAC PO (12:22)
[2017-04-27] MEDS ORDERED: SAN30GM TOP (12:22)
--- NOTE | 2017-04-27 13:22 | CONS ---
Date/Time of Note Date/Time of Note DATE: 04/27/17 TIME: 13:19 Assessment/Plan Assessment/Plan Chief Complaint/Hosp Course Imp: 1.syncope-preserved EF by echo 02/11 with Diastolic dysfunction. negative trop >3 2.HTN-somewhat labile but currently reasonable 3.HL 4.H/O seizures 5.Anemia 6.Loose stools/diarrhea-negative c diff 7.Bradycardia to 50's/S. Jeremy while on tele with stable BP 8.UTI-MDR Recc: -Tele -Continue Benazepril -Continue statin -Follow volume status closely -s/p abx course/ID following Problems: Consultation Date/Type/Reason Admit Date/Time April 16, 2017 at 05:02 Initial Consult Date 04/17/2017 Type of Consultation: Cardiogy Reason for Consultation syncope Referring Provider: MYLES SCHAFFER MD Exam/Review of Systems Vital Signs Vitals Vital Signs Date Time Temp Pulse Resp B/P Pulse Ox O2 Delivery O2 Flow Rate FiO2 04/27/17 08:11 97.3 69 16 136/59 96 Intake and Output 04/26/17 04/26/17 04/27/17 15:00 23:00 07:00 Intake Total 50 ml 1290 ml 500 ml Balance 50 ml 1290 ml 500 ml Exam Review of Systems: CONSTITUTIONAL: No fevers, chills. PULMONARY: No sob CARDIOVASCULAR: No chest pain/palpitations GASTROINTESTINAL: No nausea/vomiting. GENITOURINARY: No hematuria/dysuria. MUSCULOSKELETAL: No myagias/arthalgias. PSYCHIATRIC: The patient denies depression. NEUROLOGIC: No weakness Constitutional: alert Psych: no complaints Head: normocephalic ENMT: mucosa pink and moist Neck: jvd (8-9 cm water), supple Respiratory: clear to auscultation Cardiovascular: regular rate and rhythm Gastrointestinal: non-tender, soft Musculoskeletal: muscle weakness (mild generalized) Extremities: edema (none) Neurological: other (No focal deficits) Results Result Diagram: 04/26/1758 04/26/17857 Medications Medications Current Medications Acetaminophen (Tylenol Tab) 650 mg Q6 PRN PO PAIN; Start 04/16/17 at 06:30 Atorvastatin Calcium (Lipitor) 20 mg QHS PO Last administered on 04/26/17t 21: 03; Admin Dose 20 MG; Start 04/16/17 at 21:00 Benazepril HCl (Lotensin) 10 mg DAILY PO Last administered on 04/27/17 08:31; Admin Dose 10 MG; Start 04/16/17 at 09:00 Carbidopa/Levodopa (Sinemet (25/ 100)) 1 tab TID PO Last administered on 12:45; Admin Dose 1 TAB; Start 04/16/17 at 09:00 Levetiracetam (Keppra) 750 mg BID PO Last administered on 04/27/17 08:30; Admin Dose 750 MG; Start 04/16/17 at 09:00 Primidone (Mysoline) 50 mg DAILY PO Last administered on 04/27/17 08:30; Admin Dose 50 MG; Start 04/16/17 at 09:00 Sertraline HCl 25 mg 25 mg DAILY PO Last administered on 04/27/17 08:30; Admin Dose 25 MG; Start 04/16/17 at 09:00 Sodium Chloride (NS) 1,000 ml @ 50 mls/hr Q20H IV Last administered on 19:50; Admin Dose 50 MLS/HR; Start 04/16/17 at 06:21 Ondansetron HCl (Zofran Inj) 4 mg Q6H PRN IV NAUSEA AND/OR VOMITING; Start at 06:30 Nystatin (Nystatin Powder) 1 applic BID TOP Last administered on 04/27/17 08: 31; Admin Dose 1 APPLIC; Start 04/16/17 at 14:00 Collagenase (Santyl) APPLY TO SACRUM & BUTTO... BID TOP Last administered on 08:31; Admin Dose 1 APPLIC; Start 04/17/17 at 13:30 Famotidine (Pepcid) 20 mg DAILY PO Last administered on 04/27/17 08:30; Admin Dose 20 MG; Start 04/18/17 at 09:00 Loperamide HCl (Imodium Cap) 2 mg QID PRN PO DIARRHEA; Start 04/17/17 at 18:00 Cholestyramine Resin (Questran Light) 4 gm BID PO Last administered on 08:30; Admin Dose 4 GM; Start 04/19/17 at 09:00 Pramipexole (Mirapex) 0.5 mg TID PO Last administered on 04/27/17 12:45; Admin Dose 0.5 MG; Start 04/20/17 at 09:30 Estrogens Conjugated (Premarin Vaginal Cr) 0.5 GM MEASURED ... DAILY@21 VAG Last administered on 04/26/17 21:04; Admin Dose 1 APPLIC; Start 04/22/17 at 21: 00 Zolpidem Tartrate (Ambien) 2.5 mg HS PRN PO INSOMNIA Last administered on 23:30; Admin Dose 2.5 MG; Start 04/25/17 at 17:00 KELLY DOSS April 27, 2017 13:22
[2017-04-27] MEDS: SOD CHLORIDE 0.9% 1,000 ML IV SCH ×3 (17:32→23:14)
--- NOTE | 2017-04-27 19:38 | PN ---
Date/Time of Note Date/Time of Note DATE: 04/27/17 TIME: 19:37 Assessment/Plan VTE Prophylaxis VTE Prophylaxis Intervention: other Lines/Catheters IV C[facility]ter Type (from [facility] Peripheral IV Urinary Cath still in place: No Assessment/Plan Chief Complaint/Hosp Course 1. Syncope episode 2. Hypertension 3. Hyperlipidemia 4. Hypothyroidism 5. Ct scan showed changes in right side of the brain as a Chronic right frontal infarct. 6. Parkinson disease 4. Hs seizure 5. Hs abdominal surgery 6. Anemia 7. Diarrhea better PLAN ID CONSULT ANTIBIOTIC per gi home Problems: Subjective 24 Hr Interval Summary Cardiovascular: no complaints Gastrointestinal: no complaints Exam/Review of Systems Vital Signs Vitals Vital Signs Date Time Temp Pulse Resp B/P Pulse Ox O2 Delivery O2 Flow Rate FiO2 04/27/17 08:11 97.3 69 16 136/59 96 Intake and Output 04/26/17 04/26/17 04/27/17 15:00 23:00 07:00 Intake Total 50 ml 1290 ml 500 ml Balance 50 ml 1290 ml 500 ml Exam Respiratory: clear to auscultation Cardiovascular: regular rate and rhythm Gastrointestinal: soft Results Result Diagram: 04/26/1785704/26/17857 Medications Medications Current Medications Acetaminophen (Tylenol Tab) 650 mg Q6 PRN PO PAIN; Start 04/16/17 at 06:30 Atorvastatin Calcium (Lipitor) 20 mg QHS PO Last administered on 04/26/17 21: 03; Admin Dose 20 MG; Start 04/16/17 at 21:00 Benazepril HCl (Lotensin) 10 mg DAILY PO Last administered on 04/27/17 08:31; Admin Dose 10 MG; Start 04/16/17 at 09:00 Carbidopa/Levodopa (Sinemet (25/ 100)) 1 tab TID PO Last administered on 12:45; Admin Dose 1 TAB; Start 04/16/17 at 09:00 Levetiracetam (Keppra) 750 mg BID PO Last administered on 04/27/17 08:30; Admin Dose 750 MG; Start 04/16/17 at 09:00 Primidone (Mysoline) 50 mg DAILY PO Last administered on 04/27/17 08:30; Admin Dose 50 MG; Start 04/16/17 at 09:00 Sertraline HCl 25 mg 25 mg DAILY PO Last administered on 04/27/17 08:30; Admin Dose 25 MG; Start 04/16/17 at 09:00 Sodium Chloride (NS) 1,000 ml @ 50 mls/hr Q20H IV Last administered on 17:32; Admin Dose 50 MLS/HR; Start 04/16/17 at 06:21 Ondansetron HCl (Zofran Inj) 4 mg Q6H PRN IV NAUSEA AND/OR VOMITING; Start at 06:30 Nystatin (Nystatin Powder) 1 applic BID TOP Last administered on 04/27/17 08: 31; Admin Dose 1 APPLIC; Start 04/16/17 at 14:00 Collagenase (Santyl) APPLY TO SACRUM & BUTTO... BID TOP Last administered on 08:31; Admin Dose 1 APPLIC; Start 04/17/17 at 13:30 Famotidine (Pepcid) 20 mg DAILY PO Last administered on 04/27/17 08:30; Admin Dose 20 MG; Start 04/18/17 at 09:00 Loperamide HCl (Imodium Cap) 2 mg QID PRN PO DIARRHEA; Start 04/17/17 at 18:00 Cholestyramine Resin (Questran Light) 4 gm BID PO Last administered on 08:30; Admin Dose 4 GM; Start 04/19/17 at 09:00 Pramipexole (Mirapex) 0.5 mg TID PO Last administered on 04/27/17 12:45; Admin Dose 0.5 MG; Start 04/20/17 at 09:30 Estrogens Conjugated (Premarin Vaginal Cr) 0.5 GM MEASURED ... DAILY@21 VAG Last administered on 04/26/17 21:04; Admin Dose 1 APPLIC; Start 04/22/17 at 21: 00 Zolpidem Tartrate (Ambien) 2.5 mg HS PRN PO INSOMNIA Last administered on 23:30; Admin Dose 2.5 MG; Start 04/25/17 at 17:00 MYLES SCHAFFER MD April 27, 2017 19:38
[2017-04-27 20:14] VITALS: BP 103/56; RESP 18
--- NOTE | 2017-04-27 20:18 | CONS ---
Date/Time of Note Date/Time of Note DATE: 04/27/17 TIME: 20:18 Assessment/Plan Assessment/Plan Additional Assessment/Plan Additional Assessment/Plan IMPRESSION: 1. Urinary tract infection. 2. Parkinson's disease. 3. Diarrhea. All cultures are negative so far. Improved on questran 4. Seizure. 5. Hypothyroidism. 6. Hyperlipidemia. 7. Syncopal episode. Plan - continue Questran. - Continue abx's and f/u cx data Consultation Date/Type/Reason Admit Date/Time April 16, 2017 at 05:02 Type of Consultation: Cardiogy Referring Provider: MYLES SCHAFFER MD 24 HR Interval Summary Constitutional: improved Exam/Review of Systems Vital Signs Vitals Vital Signs Date Time Temp Pulse Resp B/P Pulse Ox O2 Delivery O2 Flow Rate FiO2 04/27/17 08:11 97.3 69 16 136/59 96 Intake and Output 04/26/17 04/26/17 04/27/17 15:00 23:00 07:00 Intake Total 50 ml 1290 ml 500 ml Balance 50 ml 1290 ml 500 ml Exam Constitutional: alert, oriented, well developed Psych: nl mood/affect, no complaints Head: atraumatic, normocephalic Eyes: EOMI, PERRL, nl conjunctiva, nl lids, nl sclera ENMT: nl external ears & nose, nl lips & teeth, nl nasal mucosa & septum Neck: non-tender, supple Respiratory: clear to auscultation, normal air movement Cardiovascular: nl pulses, regular rate and rhythm Gastrointestinal: nl liver, spleen, non-tender, soft Musculoskeletal: nl extremities to inspection, nl gait and stance Extremities: normal pulses Neurological: SUGAR CONTROLLER II-XII intact, nl mental status, nl speech, nl strength Skin: nl turgor, No rash or lesions Lymph: nl lymph nodes Results Result Diagram: 04/26/1785704/26/17857 Medications Medications Current Medications Acetaminophen (Tylenol Tab) 650 mg Q6 PRN PO PAIN; Start 04/16/17 at 06:30 Atorvastatin Calcium (Lipitor) 20 mg QHS PO Last administered on 04/26/17 21: 03; Admin Dose 20 MG; Start 04/16/17 at 21:00 Benazepril HCl (Lotensin) 10 mg DAILY PO Last administered on 04/27/17 08:31; Admin Dose 10 MG; Start 04/16/17 at 09:00 Carbidopa/Levodopa (Sinemet (25/ 100)) 1 tab TID PO Last administered on 12:45; Admin Dose 1 TAB; Start 04/16/17 at 09:00 Levetiracetam (Keppra) 750 mg BID PO Last administered on 04/27/17 08:30; Admin Dose 750 MG; Start 04/16/17 at 09:00 Primidone (Mysoline) 50 mg DAILY PO Last administered on 04/27/17 08:30; Admin Dose 50 MG; Start 04/16/17 at 09:00 Sertraline HCl 25 mg 25 mg DAILY PO Last administered on 04/27/17 08:30; Admin Dose 25 MG; Start 04/16/17 at 09:00 Sodium Chloride (NS) 1,000 ml @ 50 mls/hr Q20H IV Last administered on 17:32; Admin Dose 50 MLS/HR; Start 04/16/17 at 06:21 Ondansetron HCl (Zofran Inj) 4 mg Q6H PRN IV NAUSEA AND/OR VOMITING; Start at 06:30 Nystatin (Nystatin Powder) 1 applic BID TOP Last administered on 04/27/17 08: 31; Admin Dose 1 APPLIC; Start 04/16/17 at 14:00 Collagenase (Santyl) APPLY TO SACRUM & BUTTO... BID TOP Last administered on 08:31; Admin Dose 1 APPLIC; Start 04/17/17 at 13:30 Famotidine (Pepcid) 20 mg DAILY PO Last administered on 04/27/17 08:30; Admin Dose 20 MG; Start 04/18/17 at 09:00 Loperamide HCl (Imodium Cap) 2 mg QID PRN PO DIARRHEA; Start 04/17/17 at 18:00 Cholestyramine Resin (Questran Light) 4 gm BID PO Last administered on 08:30; Admin Dose 4 GM; Start 04/19/17 at 09:00 Pramipexole (Mirapex) 0.5 mg TID PO Last administered on 04/27/17 12:45; Admin Dose 0.5 MG; Start 04/20/17 at 09:30 Estrogens Conjugated (Premarin Vaginal Cr) 0.5 GM MEASURED ... DAILY@21 VAG Last administered on 04/26/17 21:04; Admin Dose 1 APPLIC; Start 04/22/17 at 21: 00 Zolpidem Tartrate (Ambien) 2.5 mg HS PRN PO INSOMNIA Last administered on 23:30; Admin Dose 2.5 MG; Start 04/25/17 at 17:00 RAYO HUI MD April 27, 2017 20:18
[2017-04-27] MEDS: ZOLPIDEM 5 MG TAB PO PRN (21:05)
[2017-04-27] MEDS: ATORVASTATIN 20 MG TAB PO SCH (21:06)
[2017-04-27] MEDS: ESTROGENS CONJUGATED 42.5 GM VAG CR VAG SCH (21:07)
[2017-04-28] MEDS: LEVOTHYROXINE 100 MCG TAB PO SCH (06:10)
[2017-04-28 08:06] VITALS: BP 125/61; RESP 18
[2017-04-28] MEDS: LEVETIRACETAM 750 MG TAB PO SCH (09:16)
[2017-04-28] MEDS: CHOLESTYRAMINE (LIGHT) 4 GM PACKET PO SCH (09:16)
[2017-04-28] MEDS: PRIMIDONE 50 MG TAB PO SCH (09:17)
[2017-04-28] MEDS: CARBIDOPA/LEVODOPA (25/100) TAB PO SCH ×2 (09:17→13:19)
[2017-04-28] MEDS: FAMOTIDINE 20 MG TAB PO SCH (09:18)
[2017-04-28] MEDS: BENAZEPRIL 10 MG TAB PO SCH (09:18)
[2017-04-28] MEDS: PRAMIPEXOLE 1 MG TAB PO SCH ×2 (09:19→13:19)
[2017-04-28] MEDS: SERTRALINE 50 MG TAB PO SCH (09:19)
[2017-04-28] MEDS: COLLAGENASE 30 GM TUBE TOP SCH (09:22)
[2017-04-28] MEDS: NYSTATIN 30 GM POWDER BTL TOP SCH (09:22)
[2017-04-28] MEDS: SOD CHLORIDE 0.9% 1,000 ML IV SCH (13:22)
--- NOTE | 2017-04-28 17:11 | CONS ---
Date/Time of Note Date/Time of Note DATE: 04/28/17 TIME: 17:07 Assessment/Plan Assessment/Plan Chief Complaint/Hosp Course Imp: 1.syncope-preserved EF by echo 02/11 with Diastolic dysfunction. negative trop >3 2.HTN-somewhat labile but currently reasonable 3.HL 4.H/O seizures 5.Anemia 6.Loose stools/diarrhea-negative c diff 7.Bradycardia to 50's/S. Jeremy while on tele with stable BP 8.UTI-MDR Recc: -Continue Benazepril -Continue statin -Follow volume status closely -s/p abx course/ID following Problems: Consultation Date/Type/Reason Admit Date/Time April 16, 2017 at 05:02 Initial Consult Date 04/17/2017 Type of Consultation: Cardiogy Reason for Consultation HTN Referring Provider: MYLES SCHAFFER MD Exam/Review of Systems Vital Signs Vitals Vital Signs Date Time Temp Pulse Resp B/P Pulse Ox O2 Delivery O2 Flow Rate FiO2 04/28/17 08:06 97.8 69 18 125/61 97 Intake and Output 04/27/17 04/27/17 04/28/17 15:00 23:00 07:00 Intake Total 600 ml 1580 ml 600 ml Balance 600 ml 1580 ml 600 ml Exam Review of Systems: CONSTITUTIONAL: No fevers, chills. PULMONARY: No sob CARDIOVASCULAR: No chest pain/palpitations GASTROINTESTINAL: No nausea/vomiting. GENITOURINARY: No hematuria/dysuria. MUSCULOSKELETAL: No myagias/arthalgias. PSYCHIATRIC: The patient denies depression. NEUROLOGIC: No weakness Constitutional: alert Psych: no complaints Head: normocephalic ENMT: mucosa pink and moist Neck: jvd, supple Respiratory: diminished breath sounds Cardiovascular: regular rate and rhythm Gastrointestinal: non-tender, soft Musculoskeletal: muscle weakness (generalized) Extremities: other (No focal deficits) Neurological: other Results Result Diagram: 04/26/1785704/26/17857 Medications Medications Current Medications Acetaminophen (Tylenol Tab) 650 mg Q6 PRN PO PAIN; Start 04/16/17 at 06:30 Atorvastatin Calcium (Lipitor) 20 mg QHS PO Last administered on 04/27/17t 21: 06; Admin Dose 20 MG; Start 04/16/17 at 21:00 Benazepril HCl (Lotensin) 10 mg DAILY PO Last administered on 04/28/17 09:18; Admin Dose 10 MG; Start 04/16/17 at 09:00 Carbidopa/Levodopa (Sinemet (25/ 100)) 1 tab TID PO Last administered on 13:19; Admin Dose 1 TAB; Start 04/16/17 at 09:00 Levetiracetam (Keppra) 750 mg BID PO Last administered on 04/28/17 09:16; Admin Dose 750 MG; Start 04/16/17 at 09:00 Primidone (Mysoline) 50 mg DAILY PO Last administered on 04/28/17 09:17; Admin Dose 50 MG; Start 04/16/17 at 09:00 Sertraline HCl 25 mg 25 mg DAILY PO Last administered on 04/28/17 09:19; Admin Dose 25 MG; Start 04/16/17 at 09:00 Sodium Chloride (NS) 1,000 ml @ 50 mls/hr Q20H IV Last administered on 13:22; Admin Dose 50 MLS/HR; Start 04/16/17 at 06:21 Ondansetron HCl (Zofran Inj) 4 mg Q6H PRN IV NAUSEA AND/OR VOMITING; Start at 06:30 Nystatin (Nystatin Powder) 1 applic BID TOP Last administered on 04/28/17 09:22 ; Admin Dose 1 APPLIC; Start 04/16/17 at 14:00 Collagenase (Santyl) APPLY TO SACRUM & BUTTO... BID TOP Last administered on 09:22; Admin Dose 1 APPLIC; Start 04/17/17 at 13:30 Famotidine (Pepcid) 20 mg DAILY PO Last administered on 04/28/17 09:18; Admin Dose 20 MG; Start 04/18/17 at 09:00 Loperamide HCl (Imodium Cap) 2 mg QID PRN PO DIARRHEA; Start 04/17/17 at 18:00 Cholestyramine Resin (Questran Light) 4 gm BID PO Last administered on 09:16; Admin Dose 4 GM; Start 04/19/17 at 09:00 Pramipexole (Mirapex) 0.5 mg TID PO Last administered on 6/1/17at 13:19; Admin Dose 0.5 MG; Start 04/20/17 at 09:30 Estrogens Conjugated (Premarin Vaginal Cr) 0.5 GM MEASURED ... DAILY@21 VAG Last administered on 04/27/17 21:07; Admin Dose 1 APPLIC; Start 04/22/17 at 21: 00 Zolpidem Tartrate (Ambien) 2.5 mg HS PRN PO INSOMNIA Last administered on 21:05; Admin Dose 2.5 MG; Start 04/25/17 at 17:00 KELLY DOSS Apr 28, 2017 17:11
--- NOTE | 2017-04-29 17:11 | QN ---
Documentation Comment [id number] MYLES SCHAFFER MD Apr 29, 2017 17:10
--- NOTE | 2017-04-29 18:14 | DS ---
DATE OF ADMISSION: 04/16/2017 DATE OF DISCHARGE: 04/28/2017 HOSPITAL COURSE: The patient with history of Parkinson disease, history of syncope, dizziness, history of UTI. Presented with dizziness. The patient's sodium 139, potassium 4.7. She was seen by Dr. Lauren in consultation. The patient was noted to have Proteus mirabilis UTI, started on IV antibiotics. The patient finished a course of antibiotic and was cleared by the client support consultant to be discharged. DISCHARGE DIAGNOSES: Include: 1. Syncope with preserved ejection fraction. 2. Hypertension. 3. Hyperlipidemia. 4. Anemia. 5. disease, status post diarrhea. 6. Bradycardia. 7. Urinary tract infection, multidrug resistant. DISCHARGE MEDICATIONS: Include: 1. Questran. 2. Estrogen cream. 3. He was on statin. 4. Continue Tylenol. 5. Atorvastatin. 6. Benazepril. 7. Carbidopa/levodopa. 8. Keppra. 9. MiraLax. 10. Primidone. 11. Zoloft. CONDITION: Patient is stable at the time of discharge. Dictated By: MYLES SCHAFFER MD BS/GABRIELLA Conf#: [id number] DID#: [id number]
== END 2017-04-28 18:45 | disposition home or self-care (01) | DRG 292 ==
LOC: E/R 23:31 → TEL 04-16 05:02 → MS2 04-19 23:03
PROVIDERS: ADMIT Internal Medicine Nephrology; ATTEND Internal Medicine Nephrology
DX: I11.0 Hypertensive heart disease with heart failure (principal); N39.0 Urinary tract infection, site not specified; E44.0 Moderate protein-calorie malnutrition; G20 Parkinson's disease; I50.30 Unspecified diastolic (congestive) heart failure; J44.9 Chronic obstructive pulmonary disease, unspecified; E03.9 Hypothyroidism, unspecified; Z87.891 Personal history of nicotine dependence; E78.5 Hyperlipidemia, unspecified; H01.006 Unspecified blepharitis left eye, unspecified eyelid; H01.003 Unspecified blepharitis right eye, unspecified eyelid; D64.9 Anemia, unspecified; Z86.73 Personal history of transient ischemic attack (TIA), and cerebral infarction without residual deficits; I51.7 Cardiomegaly; R19.7 Diarrhea, unspecified; B96.4 Proteus (mirabilis) (morganii) as the cause of diseases classified elsewhere; Z68.23 Body mass index [BMI] 23.0-23.9, adult; Z16.24 Resistance to multiple antibiotics
CPT/HCPCS: 70450; 71010; 80048; 80053; 80061; 81001; 81003; 83605; 83880; 84439; 84443; 84484; 85025; 85610; 85730; 87040; 87045; 87075; 87086; 93005; 93308; 93880; 96374; 96375; J0456; J0696; J0698; J2405; J7030; P9612